=== PATIENT | male | born 1980 | race Caucasian/White ===

== ENCOUNTER → 2021-12-03 09:18 | Outpatient (BNVA) | payer BC, SELFPAY | PROVIDERS: PCP Family Medicine Adult Medicine; Visit Provider Family Medicine Adult Medicine | DX: Z00.00 Encounter for general adult medical examination without abnormal findings (principal) | CPT/HCPCS: 80053; 85025 ==

== ENCOUNTER → 2022-01-31 13:16 | Outpatient (BNVA) | payer BC, MEDICAID, SELFPAY | PROVIDERS: PCP Family Medicine Adult Medicine; Visit Provider Emergency Medicine | DX: S99.911A Unspecified injury of right ankle, initial encounter (principal); X58.XXXA Exposure to other specified factors, initial encounter | CPT/HCPCS: 73610 ==

== ENCOUNTER → 2022-10-13 09:56 | Outpatient (BNVA) | payer BC, MEDICAID, SELFPAY | PROVIDERS: PCP Family Medicine Adult Medicine; Visit Provider Family Medicine Adult Medicine | DX: F01-F99 Mental, behavioral and neurodevelopmental disorders (principal); M79.2 Neuralgia and neuritis, unspecified; N18.2 Chronic kidney disease, stage 2 (mild); F17.200 Nicotine dependence, unspecified, uncomplicated; K50.90 Crohn's disease, unspecified, without complications; F90.8 Attention-deficit hyperactivity disorder, other type | CPT/HCPCS: 80053; 80061; 84443; 85025 ==

== ENCOUNTER 2023-03-22 23:45 | Inpatient (IN) | payer BC, SELFPAY ==
[2023-03-22 23:46] VITALS: BP 156/118; PULSE 118; RESP 18; TEMP 36.7; O2SAT 98
--- NOTE | 2023-03-22 23:55 | ECG_ITS ---
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 Measurements Intervals [place] Rate: 101 P: 69 [place]: 135 QRS: 84 QRSD: 86 T: 64 QT: 328 QTc: 425 Interpretive Statements SINUS TACHYCARDIA ABNORMAL RHYTHM ECG No previous ECG available for comparison Electronically Signed On 03-23-2023 7:16:10 PLASTIC INSTALLER by Anel Jimenez M.D. [id number]
--- NOTE | 2023-03-23 00:10 | ECG_ITS ---
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 Measurements Intervals [place] Rate: 101 P: 69 [place]: 135 QRS: 84 QRSD: 86 T: 64 QT: 328 QTc: 425 Interpretive Statements SINUS TACHYCARDIA ABNORMAL RHYTHM ECG No previous ECG available for comparison Electronically Signed On 03-23-2023 7:16:12 WARM IN WORKER by Anel Jimenez M.D. [id number] f
--- NOTE | 2023-03-23 00:12 | ED.C_ITS ---
HPI - Psych 2 General: Chief Complaint: Psychiatric Symptoms Stated Complaint: 96 hr hold Time Seen by Provider: 03/23/23 00:10 History of Present Illness: 42-year-old male presents to the emergen cy department under 96-hour hold with [facility] [employer]. They have a statement from the patient's stating that she feels like he is having hallucinations and paranoid type behavior. She states he is hiding cameras all around the property as he thinks that she is cheating on him and smoking methamphetamine. The patient states that his is saying all of this because he told her he wanted a divorce and that she is using methamphetamine. He denies SI or HI. He states that he is convinced that his is cheating on him and appears to be gaslighting everyone and attempts to turn them against him. He states that he has asked his daughters about strange men that have been in their house and the older daughter has told the younger daughter not to say anything. He states that he did drink some alcohol this evening and attempt to ease his stress. He states that he is concerned that people specifically men are coming to his house when he is not there or sneaking onto his property to be with his . 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 Smoker unmotivated to quit ADHD, adult residual type Diverticulosis CKD (chronic kidney disease) stage 2, GFR 60-89 ml/min History of spinal fracture L2 level in 2001 Peripheral neuropathic pain ADD (attention deficit disorder) Crohn disease Surgical History History of arthroscopic knee surgery right knee Social History Smoking and tobacco/nicotine status: current every day tobacco/nicotine user (chewing tobacco) smokeless tobacco Smokeless tobacco user: snuff Alcohol intake: current Alcohol intake frequency: few times a month Substance/Drug Use: never Caregiver/support person: No Lives independently: Yes Household members: spouse Marital status: service: Yes Current occupational status: employed Do you think of yourself as: Straight/Heterosexual Current gender identity: Male Physical Exam 2 Narrative: EXAM NARRATIVE: Constitutional: the patient appears well nourished and with normal development. Vital signs reviewed as documented. HENMT: Normocephalic, atraumatic. Extermal ears with normal appearance without drainage. Nose without drainage, normal appearance. Mucus membranes moist. Neck is supple, No jugular venous distension, trachea is midline, no appreciable carotid bruits. No lymphadenopathy. No meningeal signs. Flexion, extension and lateral rotation is without pain. Eyes: Pupils are equal, round, reactive to light and accommodation. No scleral icterus. Extra-ocular movement are intact. Thorax is symmetrical and with equal rise and fall with respirations. Resp: Lungs are clear to auscultation. No wheezes, rales, crackles or ronchi at present. Cardio: Regular rate and rhythm. Positive S1, S2. No appreciable murmurs, rubs or gallops. GI: Abdominal exam reveals normal bowel sounds to all quadrants. No organomegaly. No obvious palpable masses noted. No hepatomegally appreciated. Soft, nontender to palpation. Extremity: Extremities are non-edematous and both femoral and pedal pulses are 2+ and equal bilaterally. Moves all extremities well, sensation in all extremities. Neuro: Alert and oriented x4, person, place, time and situation. Cranial nerves II through XII are grossly intact, there is no focal neurological deficits that I can appreciate at present. Motor strength in the upper and lower extremities are equal and bilateral 5/5. Psych: Cooperative, calm, normal thought process, appropriate judgment. Skin: No lesions, rashes. No gross abnormalities noted. Back: Symmetrical, no obvious deformity, No CVA tenderness Course 2 Vital Signs: Vital signs: Vital Signs Temperature 98.0 F 03/22/23 23:46 Pulse Rate 100 03/23/23 01:44 Respiratory Rate 20 H 03/23/23 01:44 Blood Pressure 126/94 03/23/23 01:44 Pulse Oximetry 98 03/23/23 01:44 Oxygen Delivery Me thod Room Air 03/23/23 01:44 MDM - Psych Medical Decision Making Physical exam completed and documented I have obtained laboratory evaluation for psychiatric clearance. Medical Records I reviewed the patient's medical records. Lab Data I reviewed the patient's lab results. 03/22/23 23:57 03/22/23 23:57 Laboratory Results WBC 13.20 10^3/uL (3.29-11.43) H 03/22/23 23:57 RBC 5.07 10^6/uL (3.85-5.65) 03/22/23 23:57 Hgb 16.60 g/dL (11.27-16.99) 03/22/23 23:57 Hct 48.3 % (37-53) 03/22/23 23:57 MCV 95.3 fl (82-101) 03/22/23 23:57 MCH 32.7 pg (27-33) 03/22/23 23:57 MCHC 34.4 g/dL (30-55) 03/22/23 23:57 RDW 14.2 % (12.1-15.1) 03/22/23 23:57 Plt Count 435 10^3/cmm (157-399) H 03/22/23 23:57 MPV 8.4 fL (7.4-10.4) 03/22/23 23:57 Neut % (Auto) 56.9 % 03/22/23 23:57 Lymph % (Auto) 32.9 % 03/22/23 23:57 [place] % (Auto) 7.7 % 03/22/23 23:57 Eos % (Auto) 1.9 % 03/22/23 23:57 Baso % (Auto) 0.4 % 03/22/23 23:57 Neut # (Auto) 7.52 10^3/uL (1.8-7.7) 03/22/23 23:57 Lymph # (Auto) 4.3 10^3/uL (0.8-4.8) 03/22/23 23:57 [place] # (Auto) 1.0 10^3/uL (0.2-0.9) H 03/22/23 23:57 Eos # (Auto) 0.3 10^3/uL (0.0-0.8) 03/22/23 23:57 Baso # (Auto) 0.1 10^3/uL (0.0-0.1) 03/22/23 23:57 Nucleated RBC % (auto) 0 % 03/22/23 23:57 Nucleated RBCs # 0.0 /100WBC 03/22/23 23:57 Sodium 139 mmol/L (136-145) 03/22/23 23:57 Potassium 3.5 mmol/L (3.5-5.1) 03/22/23 23:57 Chloride 102 mmol/L (98-107) 03/22/23 23:57 Carbon Dioxide 27 mmol/L (22-29) 03/22/23 23:57 Anion Gap 13.5 (5-19) 03/22/23 23:57 BUN 7 mg/dL (6-20) 03/22/23 23:57 Creatinine 1.3 mg/dL (0.7-1.2) H 03/22/23 23:57 GFR Calculation 60.5 mL/min (90-130) L 03/22/23 23:57 Glucose 86 mg/dL (65-115) 03/22/23 23:57 Calculated Osmolality 285 mOsm/kg (285-295) 03/22/23 23:57 Calcium 8.9 mg/dL (8.5-10.5) 03/22/23 23:57 Total Bilirubin 0.5 mg/dL (0.15-1.2) 03/22/23 23:57 AST 17 U/L (0-40) 03/22/23 23:57 ALT 16 U/L (0-41) 03/22/23 23:57 Alkaline Phosphatase 63 U/L (40-130) 03/22/23 23:57 Total Protein 7.2 g/dL (6.6-8.7) 03/22/23 23:57 Albumin 4.2 g/dL (3.5-5.2) 03/22/23 23:57 Globulin 3.0 g/dL (1.3-4.6) 03/22/23 23:57 TSH 1.13 uIU/mL (0.27-4.20) 03/22/23 23:57 Urine Color Light yellow (Yellow) 03/23/23 00:01 Urine Appearance Clear (CLEAR) 03/23/23 00:01 Urine pH 6 (5-7) 03/23/23 00:01 Ur Specific [place] 1.015 (1.005-1.030) 03/23/23 00:01 Urine Protein Neg (Negative) 03/23/23 00:01 Urine Glucose (UA) Norm (Normal) 03/23/23 00:01 Urine Ketones Negative (Negative) 03/23/23 00:01 Urine Blood Trace (Negative) H 03/23/23 00:01 Urine Nitrate Negative (Negative) 03/23/23 00:01 Urine Bilirubin Neg (Negative) 03/23/23 00:01 Urine Urobilinogen Neg mg/dL (Negative) 03/23/23 00:01 Ur Leukocyte Esterase Negative (Negative) 03/23/23 00:01 Urine RBC 0-4 /hpf (0-2) H 03/23/23 00:01 Urine WBC None /hpf (0-5) 03/23/23 00:01 Ur Squamous Epith Cells Rare /hpf (0-5) 03/23/23 00:01 Amorphous Sediment Not Reportable 03/23/23 00:01 Urine Bacteria None /hpf (NONE) 03/23/23 00:01 Salicylates < 0.3 mg/dL (3-10) L 03/22/23 23:57 Urine Opiates Screen Negative ng/mL (Negative) 03/23/23 00:01 Acetaminophen < 5.0 ug/mL (10-30) L 03/22/23 23:57 Ur Barbiturates Screen Negative ng/mL (Negative) 03/23/23 00:01 Ur Phencyclidine Scrn Negative ng/mL (Negative) 03/23/23 00:01 Ur Amphetamines Screen Positive ng/mL (Negative) H 03/23/23 00:01 U Benzodiazepines Scrn Negative ng/mL (Negative) 03/23/23 00:01 Urine Cocaine Screen Negative ng/mL (Negative) 03/23/23 00:01 U Marijuana (THC) Screen Negative ng/mL (Negative) 03/23/23 00:01 Ethyl Alcohol 113 mg/dL (0-10) H 03/22/23 23:57 No radiology studies performed this visit EKG Data EKG 1: Interpretation: Twelve-lead EKG obtained at 2355 and reviewed at 2355 demonstrates sinus tachycardia at a ventricular rate of 101 bpm. MI interval 135, QRS duration 86, QT 328, QTc 386, there is no ST elevation or depression to demonstrate acute ischemia or infarction at present Discharge Plan Discharge Patient Disposition: Admitted As Inpatient Admit Provider: Eliud Retana Clinical Impression: Paranoid Condition: Stable Coding Level of Care Code ED Port Engineer for Loretta Cody
[2023-03-23 00:14] LABS: Basophils # 0.1 10^3/uL (0.0-0.1); Basophils % 0.4 %; Eosinophils # 0.3 10^3/uL (0.0-0.8); Eosinophils % 1.9 %; Hematocrit 48.3 % (37-53); Lymphocytes # 4.3 10^3/uL (0.8-4.8); Lymphocytes % 32.9 %; Mean Corpuscular HGB Conc 34.4 g/dL (30-55); Mean Corpuscular Hemoglobin 32.7 pg (27-33); Mean Corpuscular Volume 95.3 fl (82-101); Mean Platelet Volume 8.4 fL (7.4-10.4); Monocytes % 7.7 %; Neutrophils # 7.52 10^3/uL (1.8-7.7); Neutrophils % 56.9 %; Nucleated Red Blood Cells % 0 %; Platelet Count 435 10^3/cmm (157-399); Red Blood Count 5.07 10^6/uL (3.85-5.65); Red Cell Distribution Width 14.2 % (12.1-15.1)
--- NOTE | 2023-03-23 00:18 | PC.NURSE ---
Suicide precautions in place: patient with PSA, has been dressed out of regular clothes into green scrubs, and belongings have been removed from stripped room. Belongings labeled and placed in designated drawer.
[2023-03-23 00:22] LABS: Add Urine Microscopic? YES; Bilirubin Urine Neg (Negative); Blood Urine Trace (Negative); Glucose Urine UA Norm (Normal); Ketones Urine Negative (Negative); Leukocyte Esterase Urine Negative (Negative); Nitrate Urine Negative (Negative); Protein Urine Neg (Negative); RBC Urine 0-4 /hpf (0-2); Specific Gravity, Urine 1.015 (1.005-1.030); Urine Appearance Clear (CLEAR); Urine Color Light yellow (Yellow); Urobilinogen Urine Neg (Negative); pH Urine 6 (5-7)
[2023-03-23 00:23] LABS: Add Urine Culture? No; Squamous Epithelial Cell Urine RARE /hpf (0-5)
[2023-03-23 00:29] LABS: Amphetamines Screen Urine Positive (Negative); Barbiturates Screen Urine Negative (Negative); Benzodiazepines Screen Urine Negative (Negative); Cocaine Screen Urine Negative (Negative); Opiate Screen Urine Negative (Negative); PCP Screen Urine Negative (Negative); THC Screen Urine Negative (Negative)
[2023-03-23 00:39] LABS: Alanine Aminotransferase 16 U/L (0-41); Albumin Level 4.2 g/dL (3.5-5.2); Alcohol Level 113 mg/dL (0-10); Alkaline Phosphatase 63 U/L (40-130); Anion Gap 13.5 (5-19); Aspartate Amino Transferase 17 U/L (0-40); Blood Urea Nitrogen 7 mg/dL (6-20); Calcium 8.9 mg/dL (8.5-10.5); Carbon Dioxide 27 mmol/L (22-29); Chloride 102 mmol/L (98-107); Glomerular Filtration Rate 60.5 mL/min (90-130); Glucose 86 mg/dL (65-115); Osmolality Calculated 285 mOsm/kg (285-295); Potassium 3.5 mmol/L (3.5-5.1); Sodium 139 mmol/L (136-145); Thyroid Stimulating Hormone 1.13 uIU/mL (0.27-4.20); Total Bilirubin 0.5 mg/dL (0.15-1.2); Total Protein 7.2 g/dL (6.6-8.7)
[2023-03-23 00:40] LABS: Acetaminophen < 5.0 ug/mL (10-30); Salicylate < 0.3 mg/dL (3-10)
--- NOTE | 2023-03-23 01:16 | PC.NURSE ---
96 Hour Involuntary Hold Patient Rights have been presented to patient and a copy of the same has been given to him. [employer] was present at bedside.
--- NOTE | 2023-03-23 01:41 | PC.NURSE ---
Report called to MESERET Solorio in NPU. All questions and concerns addressed at time of report.
[2023-03-23 01:44] VITALS: BP 126/94; PULSE 100; RESP 20; O2SAT 98
[2023-03-23 01:45] VITALS: BP 141/98; PULSE 103; RESP 20; TEMP 36.8; O2SAT 96
[2023-03-23] MEDS: trazodone 50 mg Tablet PO (02:45)
--- NOTE | 2023-03-23 02:56 | PC.NURSE ---
Attempted to have patient sign his admission paperwork, however was unable to obtain all signatures due to being unable to redirect patient. Patient continued to ramble on about his , job and cameras at his house. Patient also went to talk about still grieving the of his parents that were murdered in 2020.
--- NOTE | 2023-03-23 02:57 | PC.NURSE ---
Patient Behavior Patient was rambling with very disconnected thoughts, unable to do some of his admission.
--- NOTE | 2023-03-23 05:54 | W.PM.NPUH&PS ---
Providers/Chief Complaint Admitting Physician: Eliud Retana MD Primary Care Provider: Ron Hightower MD Chief Complaint: 96 hr hold HPI NPU History of Present Illness Andrade Garrett is a 42 year old male who presented to the emergency department with the following report: Chief Complaint: Psychiatric Symptoms Stated Complaint: 96 hr hold Time Seen by Provider: 03/23/23 00:10 History of Present Illness: 42-year-old male presents to the emergency department under 96-hour hold with [facility] Department. They have a statement from the patient's stating that she feels like he is having hallucinations and paranoid type behavior. She states he is hiding cameras all around the property as he thinks that she is cheating on him and smoking methamphetamine. The patient states that his is saying all of this because he told her he wanted a divorce and that she is using methamphetamine. He denies SI or HI. He states that he is convinced that his is cheating on him and appears to be gaslighting everyone and attempts to turn them against him. He states that he has asked his daughters about strange men that have been in their house and the older daughter has told the younger daughter not to say anything. He states that he did drink some alcohol this evening and attempt to ease his stress. He states that he is concerned that people specifically men are coming to his house when he is not there or sneaking onto his property to be with his . Associated symptoms: Deny homicidal ideation or suicidal ideation He was admitted to the neuropsychiatric unit for definitive treatment of those issues. He presents today unknown to the inpatient unit reporting that he has never been psychiatrically hospitalized nor has he had any longstanding mental health treatment. He started telling a very long-winded very convoluted story of his seeming suspicious to a level that he ended up putting cameras in the home and then reported that what he discovered was that she would masturbate and possibly watch pornography during which she said constituted a departure from their agreed-upon behaviors. He later identified that it was okay for her to masturbate but that he was not sure if she should watch for longer fever from a spiritual standpoint and went on a long story about how they should create their own pornography for themselves only. He reports that then he took the cameras down and was not able to watch her but then there were a couple of mornings where he went And was pretty sure there was a man in the house but could not explain why that would be a reasonable time to try to have someone in there given that they sleep in the bed together. He seemed open to the possibility that this was hallucinating but then would return back to that same subject and similar accusations about her and possible infidelity that was based on something he noted very well could not have been real. His speech was quite pressured and it was hard to interject questions as he went along. He reported being diagnosed with ADHD in denies taking his Adderall ER 40 mg in any way other than it is prescribed. He was a fairly poor historian and was very focused on these beliefs that seemed questionable even as he spoke to him. We discussed concerns that he was having helene especially with his reports of poor sleep and going several days without sleeping. We discussed the possibility of bipolar disorder. We discussed the risks, benefits and alternatives of a trial of Abilify and he understood and agreed to proceed as is documented in this note. 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 We agreed we could work with his significant other to be able to bring something here to allow him to possibly do the payroll but that given the current information we were agreeable that concerns for safety with his possibly manic presentation existed and we had no plans of overturning the 96-hour hold. Per his 03/22/2023 crisis documentation: ACI Contact Form Date Opened: 03/22/23 Time Opened: 10:08 Caller Information Person in Crisis Name:: Andrade Garrett Person in Crisis Phone:: Person in Crisis Address:: [address] [place] [id number] Caller Name if different from person in crisis: Beba Garrett Caller Relationship to Client:: Caller Phone:: C-SSRS Able to complete C-SSRS?: No (No client contact) Demographics Race/Ethnicity: White (non-) Gender: Male Sexual Orientation/Identity: Heterosexual Age: 35-44 Status: Pender/Active Intellectual Disability: Unknown Client Call Information Primary problem of call:: Acute Mental Health Crisis Is person in crisis currently taking any medications?: Unknown Does person in crisis currently use alcohol or drugs?: Unknown Does person in crisis have any known medical conditions?: Unknown Intervention: Referred for a Mobile Crisis Response Mobile Crisis Response Location:: Facility Facility: [facility] Office Intervention:: Assisted with Admission to Inpatient Psychiatric Care Was mobile crisis response initiated by [facility]?: No Final Disposition Supports Utilized:: Support/opportunity to ventilate, Options for treatment, Promote hope, Validation, Encouragement and Supportive listening Actions taken narrative:: 03/22/23 ACI met with Beba at the [facility] office. Beba reports that Andrade was in a manic state again this morning and was accusing her of having another man in the bed with them. Beba reports it has been very traumatic for the past 10 1/2 weeks since Andrade had a mental break. Beba reports that things are mostly the same as when she last had contact with I and reports that Andrade is not sleeping and will stay up for up to 4 days at a time then fall asleep for a few hour but often wakes up in full blown panic. Beba also reports that Andrade has not been eating though he does continue to drink alcohol. Beba was unsure if Andrade is using substance other than alcohol. Beba reports that Andrade has cameras all over the house to catch her cheating on him and is obsessed with the camera footage. Beba reports that Andrade now believes that she is hiding a man in the house, in varying places; roof, mattress, hedrick, in bed with them, etc. I assisted Beba with completed 96 hour hold paperwork for Andrade. ACI let Beba know that ACI would contact Beba once a decision had been made by the director loan. 1140 ACI faxed the hold paperwork to the [facility]. 1141 ACI contacted Kenyetta at the [facility] and let her know the fax at been sent and requested a callback once a decision has been made. 1300 ACI contacted Kenyetta to learn the disposition. Kenyetta stated it had been approved. 1303 ACI made contact with Beba and let her know that the hold had been approved. 03/10/23 901 I received a called from Andrade's Beba. Beba reports that for the past 8 weeks Andrade has been manic and depressive. Beba also reports that Lucina is seeing and hearing things that are not real and has been accusing her of many things. Beba reports that Anrdade lost his father 2 years ago when a drunk peg driver hit him and that it has been hard on the entire family. Beba reports that Andrade had quit drinking but recently has started again and has been hiding it from her until he just revealed bottles he has tried to hide away. [facility] explained that is Andrade was willing to go to the hospital he could be evaluated to determine if he is in need of inpatient treatment but if he is unwilling then 96 hour hold paperwork would need to be completed to get him to the hospital and evaluated. Beba stated is going to talk to her flare stitcher and may come to [facility] afterwards to complete the paperwork. [facility] encouraged Beba to contact [facility] as needed. Client Response to Intervention:: thank you Final Disposition:: 96 hour hold paperwork was completed and approved Meds NPU Home Medications Medication Instructions Recorded Confirmed Last Taken Type dextroamphetamine-amphetamine ER 30 mg PO QAM ADD 30 days #30 caps 02/22/23 03/23/23 Unknown Rx 30 mg 24hr capsule,extend release dextroamphetamine-amphetamine ER 10 mg PO QAM ADD/ADHD 03/23/23 03/23/23 Unknown History 10 mg 24hr capsule,extend release (Adderall XR) gabapentin 300 mg capsule 300 mg PO 3XD 03/23/23 03/23/23 Unknown History (Neurontin) Allergies Allergy/AdvReac Type Severity Reaction Status Date / Time ciprofloxacin [From Cipro] Allergy Severe ALGY-Swell Verified 03/23/23 00:14 Lip/Tongue/Throat PFSH NPU PFSH: Medical History (Updated 03/24/23 @ 07:02 by Eliud Retana MD) Atypical mole 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 Smoker unmotivated to quit ADHD, adult residual type Diverticulosis CKD (chronic kidney disease) stage 2, GFR 60-89 ml/min History of spinal fracture L2 level in 2000 Peripheral neuropathic pain ADD (attention deficit disorder) Crohn disease Surgical History History of arthroscopic knee surgery right knee Social History Smoking and tobacco/nicotine status: current every day tobacco/nicotine user smokeless tobacco Smokeless tobacco user: snuff Alcohol intake: current Alcohol intake frequency: few times a month Substance/Drug Use: never Caregiver/support person: No Lives independently: Yes Household members: spouse Marital status: service: Yes Current occupational status: employed Do you think of yourself as: Straight/Heterosexual Current gender identity: Male Mental Status Exam MSE Comments: This is a well-nourished, well-developed white male in hospital scrubs with adequate grooming and eye contact. Very prominent long spencer. No abnormal movements except for psychomotor agitation. Mostly cooperative with exam in mild to moderate distress. Speech was increased rate and volume and pressured. Mood described as misunderstood, affect hyper/manic. Thought process stream of consciousness. Thought content: Patient denied suicidal or homicidal ideations, there were no delusions reported but significant paranoid and persecutory delusions noted, he denied auditory or visual hallucinations but clearly something that he described were likely auditory and visual hallucinations. Attention and concentration were limited memory appeared unreliable but none were formally tested. He is alert and oriented x to person and place. Insight, judgment and impulse control are impaired. Vitals/I&O/Wt Last Vital Signs Temp 98.2 F 03/23/23 01:45 Pulse 103 H 03/23/23 01:45 Resp 20 H 03/23/23 01:45 BP 141/98 03/23/23 01:45 Pulse Ox 96 03/23/23 01:45 O2 Del Method Room Air 03/23/23 01:50 Weight last 48 hrs Weight 81.647 kg Data NPU 03/22/23 23:57 03/22/23 23:57 A&P Assessment and plan (1) Paranoid: (2) Smoker unmotivated to quit: (3) ADHD, adult residual type: (4) Helene: (5) Psychosis: Plan This is a 42-year-old white male with a reported history of ADHD on stimulant treatment with apparent helene and psychosis with 2 recent calls to the crisis that led to him being placed on a 96-hour hold secondary to his delusional thinking who presents open to a trial of medication. 1.? Continue current medication. Hold Adderall for now with concerns for its exacerbating psychosis. Start Abilify 10 mg p.o. daily for helene/psychosis. 2.? Encourage individual, group, and milieu therapy. 3.? Continue q-15-minute checks for safety. 4.? Recommend sober living treatment at the highest level of care to which the patient is willing to commit. Attestations NPU Medical Necessity Statement*: Inpatient hospitalization is medically necessary and the clinically appropriate intervention, at this time. We will monitor medications and make changes as indicated. Patient will be in the hospital for over two midnights. Likely length of stay is three to five days. Coding Level of Care Code Acute Code for Chg Fwd Diagnoses Paranoid F22 Smoker unmotivated to quit F17.200 ADHD, adult residual type F90.8 Helene F30.9 Psychosis F29
[2023-03-23 06:00] VITALS: RESP 18
[2023-03-23] MEDS: nicotine 21 mg Patch 1 PATCH TRANSDERMA (09:12)
[2023-03-23] MEDS: folic acid 1 mg Tablet PO (09:13)
[2023-03-23] MEDS: multivitamin therapeutic Tablet 1 TAB PO (09:13)
[2023-03-23] MEDS: baclofen 10 mg Tablet 20 MG PO ×3 (09:13→16:11)
[2023-03-23] MEDS: thiamine 100 mg Tablet PO (09:13)
[2023-03-23] MEDS: gabapentin 300 mg Capsule PO ×2 (11:01→14:02)
[2023-03-23 14:00] VITALS: BP 140/84; PULSE 107; RESP 17; TEMP 36.6; O2SAT 98
[2023-03-23] MEDS: ARIPiprazole 10 mg Tablet PO (16:11)
--- NOTE | 2023-03-23 16:13 | PC.NURSE ---
joanne patch removed at 1613 per patient request. Patient is interested in trying lozenges.
[2023-03-23 20:31] VITALS: BP 147/89; PULSE 106; RESP 16; O2SAT 96
[2023-03-24 06:00] VITALS: RESP 18
--- NOTE | 2023-03-24 06:46 | PC.NURSE ---
Unable to obtain patients vitals due to patient sleeping. RR obtained.
--- NOTE | 2023-03-24 08:33 | P.NPUPN_ITS ---
Subjective NPU 2 Subjective: Patient presented today reporting that he is doing okay. 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 He denied any side effects of the medication and we discussed that the Jordan being here tomorrow to manage issues of discharge and his hold. Mental Status Exam 2 MSE Comments: This is a well-nourished, well-developed white male in hospital scrubs with adequate grooming and eye contact. Very prominent long spencer. No abnormal movements except for psychomotor agitation. Mostly cooperative with exam in mild to moderate distress. Speech was increased rate and volume and pressured. Mood described as misunderstood, affect hyper/manic. Thought process stream of consciousness. Thought content: Patient denied suicidal or homicidal ideations, there were no delusions reported but significant paranoid and persecutory delusions noted, he denied auditory or visual hallucinations but clearly something that he described were likely auditory and visual hallucinations. Attention and concentration were limited memory appeared unreliable but none were formally tested. He is alert and oriented x to person and place. Insight, judgment and impulse control are impaired. Vitals/I&O/Wt Last Vital Signs Temp 97.8 F 03/23/23 14:00 Pulse 106 H 03/23/23 20:31 Resp 18 03/24/23 06:00 BP 147/89 03/23/23 20:31 Pulse Ox 96 03/23/23 20:31 O2 Del Method Room Air 03/23/23 20:31 Weight last 48 hrs Weight 81.647 kg Data NPU 03/22/23 23:57 03/22/23 23:57 A&P Assessment and plan (1) Paranoid: (2) Smoker unmotivated to quit: (3) ADHD, adult residual type: (4) Marva: (5) Psychosis: Plan This is a 42-year-old white male with a reported history of ADHD on stimulant treatment with apparent marva and psychosis with 2 recent calls to the crisis that led to him being placed on a 96-hour hold secondary to his delusional thinking who presents open to a trial of medication. 1.? Continue current medication. Hold Adderall for now with concerns for its exacerbating psychosis. Continue Abilify 10 mg p.o. daily to target marva and psychosis. 2.? Encourage individual, group, and milieu therapy. 3.? Continue q-15-minute checks for safety. 4.? Recommend sober living treatment at the highest level of care to which the patient is willing to commit. Involuntary Hold Information 2 96 Hour Hold: 96 Hour Involuntary Admission: Yes 96 Hour Hold Ending Date: 03/28/23 96 Hour Hold Ending Time: 11:45 Attestations NPU 2 Medical Necessity Statement*: Inpatient hospitalization is medically necessary and the clinically appropriate intervention, at this time. We will monitor medications and make changes as indicated. The patient's likely length of stay is three to five days. Coding Level of Care Code Acute Code for Chg Fwd Diagnoses Paranoid F22 Smoker unmotivated to quit F17.200 ADHD, adult residual type F90.8 Marva F30.9 Psychosis F29
[2023-03-24] MEDS: ARIPiprazole 10 mg Tablet PO (09:19)
[2023-03-24] MEDS: folic acid 1 mg Tablet PO (09:19)
[2023-03-24] MEDS: multivitamin therapeutic Tablet 1 TAB PO (09:19)
[2023-03-24] MEDS: gabapentin 300 mg Capsule PO ×2 (09:20→16:14)
[2023-03-24] MEDS: thiamine 100 mg Tablet PO (09:20)
[2023-03-24] MEDS: baclofen 10 mg Tablet 20 MG PO ×3 (09:20→16:08)
[2023-03-24 14:00] VITALS: BP 137/94; PULSE 95; RESP 13; O2SAT 98
[2023-03-24] MEDS: nicotine 4 mg lozenge MUCOUS MEM (16:08)
[2023-03-24 20:36] VITALS: BP 144/86; PULSE 98; RESP 18; TEMP 36.6; O2SAT 98
--- NOTE | 2023-03-24 20:58 | PC.NURSE ---
IN BED RESTING AROUSES TO VOICE. PT STATES HE SPOKE TO HIS AND IS HAVING INCREASED ANXIETY RATING IT 7/10 AND DEPRESSION 2/10. THIS RN PULLED VISTARIL 50 MG REQUESTED BUT PT HAS NOT GOTTEN UP TO TAKE IT AFTER NOTIFYING PT SEVERAL TIMES HIS MEDICATIONS WERE READY. WILL ATTEMPT AGAIN BY 2200. PT DENIES PAIN, DENIES SI/HI AND AVH AT THIS TIME. PT CONTINUES TO WITHDRAW AND ISOLATES TO ROOM. FLAT AFFECT IS NOTED. ALL QUESTIONS ANSWERED AND SUPPORT WAS VOICED.
[2023-03-25 06:00] VITALS: RESP 16
[2023-03-25] MEDS: multivitamin therapeutic Tablet 1 TAB PO (09:10)
[2023-03-25] MEDS: folic acid 1 mg Tablet PO (09:10)
[2023-03-25] MEDS: thiamine 100 mg Tablet PO (09:10)
[2023-03-25] MEDS: ARIPiprazole 10 mg Tablet PO (09:10)
[2023-03-25] MEDS: gabapentin 300 mg Capsule PO ×3 (09:11→19:47)
--- NOTE | 2023-03-25 09:17 | PC.NURSE ---
PATIENT REFUSED 0900 BACLOFEN, STATING THAT HE DOESN'T FEEL LIKE HE NEEDS IT AT THIS TIME.
[2023-03-25] MEDS: nicotine 21 mg Patch 1 PATCH TRANSDERMA (10:31)
[2023-03-25] MEDS: baclofen 10 mg Tablet 20 MG PO ×3 (13:09→19:47)
[2023-03-25 13:13] VITALS: BP 145/96; PULSE 121; RESP 16; TEMP 36.7; O2SAT 96
--- NOTE | 2023-03-25 18:06 | P.NPUPN_ITS ---
Subjective NPU 2 Subjective: 42-year-old male who admitted with paranoia and psychosis along with increased marva and anxiety. The patient had reported having taken Adderall over the last year. He had also reported that with the increase in Adderall he had had increased problems with anxiety and paranoia. He stated having improved sleep since the Adderall was discontinued. Patient provided information that he had renal failure secondary to chronic kidney disease. He was informed of the potential for Adderall to be metabolized and eliminated slower with the presence of chronic kidney disease and thereby put the patient at risk with increased presence of amphetamine in his system which could lead to psychosis. He reported no side effects from the Abilify at this time. He had reported that his mind was moving slower. 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 He had continued to report that he felt that his clientele were playing tricks on him and continue to report feeling suspicious of their intentions Mental Status Exam 2 MSE Comments: . This is a well-nourished, well-developed white male in hospital scrubs with adequate grooming and eye contact. Very prominent long spencer. No abnormal movements except for psychomotor agitation. He was cooperative with exam in mild to moderate distress. Speech was increased in rate and volume and pressured. Mood described as allright. His affect was ebullient. Thought process remained circumstantial and overly elaborative. Thought content: Patient denied suicidal or homicidal ideation, There was paranoid delusions evident. he denied auditory or visual hallucinations and did not appear to be responding to internal stimuli. Attention and concentration were limited memory appeared unreliable but none were formally tested. He is alert and oriented x to person and place. Insight, judgment and impulse control are impaired. Vitals/I&O/Wt Last Vital Signs Temp 98.1 F 03/25/23 13:13 Pulse 121 H 03/25/23 13:13 Resp 16 03/25/23 13:13 BP 145/96 03/25/23 13:13 Pulse Ox 96 03/25/23 13:13 O2 Del Method Room Air 03/25/23 13:13 Data NPU 03/22/23 23:57 03/22/23 23:57 A&P Assessment and plan (1) Paranoid: (2) Smoker unmotivated to quit: (3) ADHD, adult residual type: (4) Marva: (5) Psychosis: Plan This is a 42-year-old white male with a reported history of ADHD on stimulant treatment with apparent marva and psychosis with 2 recent calls to the crisis that led to him being placed on a 96-hour hold secondary to his delusional thinking who presents open to a trial of medication. 1.? Continue current medication. Hold Adderall for now with concerns for its exacerbating psychosis. Continue Abilify 10 mg p.o. daily to target marva and psychosis. 2.? Encourage individual, group, and milieu therapy. 3.? Continue q-15-minute checks for safety. 4.? Recommend sober living treatment at the highest level of care to which the patient is willing to commit. Involuntary Hold Information 2 96 Hour Hold: 96 Hour Involuntary Admission: Yes 96 Hour Hold Ending Date: 03/28/23 96 Hour Hold Ending Time: 11:45 Attestations NPU 2 Medical Necessity Statement*: Inpatient hospitalization is medically necessary and the clinically appropriate intervention, at this time. We will monitor medications and make changes as indicated. The patient's likely length of stay is three to five days. Coding Level of Care Code Acute Code for g Fwd Diagnoses Paranoid F22 Smoker unmotivated to quit F17.200 ADHD, adult residual type F90.8 Marva F30.9 Psychosis F29
[2023-03-25] MEDS: trazodone 50 mg Tablet PO (19:46)
[2023-03-25] MEDS: hyDROXYzine 25 mg Capsule 50 MG PO (19:47)
[2023-03-25 20:27] VITALS: BP 134/92; PULSE 109; RESP 18; TEMP 36.9; O2SAT 98
--- NOTE | 2023-03-25 20:36 | PC.NURSE ---
IN BED AROUSES TO VOICE. PT REQUEST SOMETHING FOR ANXIETY, ITS REALLY BAD, I FEEL CONFINED IN THIS PLACE. PT WAS GIVEN BEDTIME MEDICATIONS WITH VISTARIL 50 MG FOR ANXIETY, AND TRAZODONE 50 MG FOR INSOMNIA. PT DENIES PAIN, SI/HI AND AVH AT THIS TIME. PT RATES ANXIETY 7/10 AND DEPRESSION 0/10. PT OBSERVED HAVING FLAT AFFECT, WITHDRAWS AND ISOLATES TO ROOM. PT ENCOURAGED TO INTERACT WITH PEERS AND STAFF BUT DECLINES, STATES I TALK TO MY AT NIGHT THEN GO TO BED. ALL QUESTIONS ANSWERED AND SUPPORT VOICED.
[2023-03-26 06:00] VITALS: BP 135/85; PULSE 91; RESP 17; TEMP 36.5; O2SAT 98
[2023-03-26] MEDS: ARIPiprazole 10 mg Tablet PO (08:49)
[2023-03-26] MEDS: multivitamin therapeutic Tablet 1 TAB PO (08:49)
[2023-03-26] MEDS: gabapentin 300 mg Capsule PO ×3 (08:49→20:12)
[2023-03-26] MEDS: thiamine 100 mg Tablet PO (08:49)
[2023-03-26] MEDS: baclofen 10 mg Tablet 20 MG PO ×4 (08:49→20:12)
[2023-03-26] MEDS: folic acid 1 mg Tablet PO (08:50)
[2023-03-26 14:00] VITALS: BP 137/87; PULSE 122; RESP 16; TEMP 36.6; O2SAT 96
--- NOTE | 2023-03-26 14:19 | P.NPUPN_ITS ---
Subjective NPU 2 Subjective: 42-year-old male who admitted with paranoia and psychosis along with increased marva and anxiety. The patient reported no racing thoughts. He reported no sleep continuity disruption. He reported still some vague references regarding his clientele potentially having attempted to dupe him and his company. He had been reporting feeling excessively fatigued but reported improved sleep since stopping his adderall upon arrival in the unit. He reports chronic use of caffeine in the past as well. He had reported history of hypertension and CKD. Patient reports no side effects from his abilify at this time. Mental Status Exam 2 MSE Comments: . This is a well-nourished, well-developed white male in hospital scrubs with adequate grooming and eye contact. Very prominent long spencer. No abnormal movements except for mild psychomotor slowing. He was cooperative with exam in mild distress. Speech was increased in rate and volume and pressured. Mood described as okay. His affect was restricted today. Thought process was more linear and logical. Thought content: Patient denied suicidal or homicidal ideation, There was mild paranoia noted. He denied auditory or visual hallucinations and did not appear to be responding to internal stimuli. Attention and concentration were limited memory appeared unreliable but none were formally tested. He is alert and oriented x to person and place. Insight was improving. His judgment was poor and impulse control appears to be improving. Vitals/I&O/Wt Last Vital Signs Temp 98 F 03/26/23 14:00 Pulse 122 H 03/26/23 14:00 Resp 16 03/26/23 14:00 BP 137/87 03/26/23 14:00 Pulse Ox 96 03/26/23 14:00 O2 Del Method Room Air 03/26/23 14:00 Weight last 48 hrs Weight 80.739 kg Data NPU 03/22/23 23:57 03/22/23 23:57 A&P Assessment and plan (1) Paranoid: (2) Smoker unmotivated to quit: (3) ADHD, adult residual type: (4) Marva: (5) Psychosis: Plan This is a 42-year-old white male with a reported history of ADHD on stimulant treatment with apparent marva and psychosis with 2 recent calls to the crisis that led to him being placed on a 96-hour hold secondary to his delusional thinking who presents open to a trial of medication. 1.? Continue current medication. Hold Adderall for now with concerns for its exacerbating psychosis. Continue Abilify 10 mg p.o. daily to target marva and psychosis. 2.? Encourage individual, group, and milieu therapy. 3.? Continue q-15-minute checks for safety. 4.? Recommend sober living treatment at the highest level of care to which the patient is willing to commit. Involuntary Hold Information 2 96 Hour Hold: 96 Hour Involuntary Admission: Yes 96 Hour Hold Ending Date: 03/28/23 96 Hour Hold Ending Time: 11:45 Attestations NPU 2 Medical Necessity Statement*: Inpatient hospitalization is medically necessary and the clinically appropriate intervention, at this time. We will monitor medications and make changes as indicated. The patient's likely length of stay is three to five days. Coding Level of Care Code Acute Code for Chg Fwd Diagnoses Paranoid F22 Smoker unmotivated to quit F17.200 ADHD, adult residual type F90.8 Marva F30.9 Psychosis F29
[2023-03-26] MEDS: nicotine 4 mg lozenge MUCOUS MEM (19:38)
[2023-03-26] MEDS: LORazepam 2 mg Tablet PO (19:38)
[2023-03-26 19:47] VITALS: BP 123/90; PULSE 104; RESP 16; TEMP 37.2; O2SAT 95
[2023-03-27 06:00] VITALS: BP 130/86; PULSE 81; RESP 16; TEMP 36.7; O2SAT 96
[2023-03-27] MEDS: multivitamin therapeutic Tablet 1 TAB PO (08:37)
[2023-03-27] MEDS: folic acid 1 mg Tablet PO (08:37)
[2023-03-27] MEDS: ARIPiprazole 10 mg Tablet PO (08:37)
[2023-03-27] MEDS: baclofen 10 mg Tablet 20 MG PO ×4 (08:37→20:06)
[2023-03-27] MEDS: gabapentin 300 mg Capsule PO ×3 (08:37→20:06)
[2023-03-27] MEDS: thiamine 100 mg Tablet PO (08:37)
[2023-03-27 14:00] VITALS: BP 133/95; PULSE 101; RESP 20; TEMP 36.6; O2SAT 96
[2023-03-27] MEDS: nicotine 4 mg lozenge MUCOUS MEM (16:38)
--- NOTE | 2023-03-27 17:44 | P.NPUPN_ITS ---
Subjective NPU 2 Subjective: 42-year-old male who admitted with paranoia and psychosis along with increased marva and anxiety. It appears likely that the hallucinations and paranoia were 2 to high blood levels of amphetamines in his system secondary to the use of Adderall XR at 40 mg a day in the context of having chronic kidney disease which had reduced clearance of his Adderall. Patient without the Adderall and reported feeling tired but stated that he was feeling more optimistic about going home. He reported feeling less suspicious. He stated having a good visit with his today. He had continued to isolate himself on the milieu. He had reported improved sleep. He denied any mood symptoms. 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 Mental Status Exam 2 MSE Comments: . This is a well-nourished, well-developed white male in hospital scrubs with adequate grooming and eye contact. Very prominent long spencer. No abnormal movements except for mild psychomotor slowing. He was cooperative with exam in no acute distress. Speech was increased in rate and volume and pressured. Mood described as okay. His affect remained somewhat flat today. Thought process was more linear and logical. Thought content: Patient denied suicidal or homicidal ideation, There was mild paranoia noted. He denied auditory or visual hallucinations and did not appear to be responding to internal stimuli. Attention and concentration were limited memory appeared unreliable but none were formally tested. He is alert and oriented x to person and place and time. Insight was improving. His judgment was poor and impulse control appears to be improving. Vitals/I&O/Wt Last Vital Signs Temp 97.9 F 03/27/23 14:00 Pulse 101 H 03/27/23 14:00 Resp 20 H 03/27/23 14:00 BP 133/95 03/27/23 14:00 Pulse Ox 96 03/27/23 14:00 O2 Del Method Room Air 03/27/23 14:00 Weight last 48 hrs Weight 80.739 kg Data NPU 03/22/23 23:57 03/22/23 23:57 A&P Assessment and plan (1) Paranoid: (2) Smoker unmotivated to quit: (3) ADHD, adult residual type: (4) Marva: (5) Psychosis: Plan This is a 42-year-old white male with a reported history of ADHD on stimulant treatment with apparent marva and psychosis with 2 recent calls to the crisis that led to him being placed on a 96-hour hold secondary to his delusional thinking who presents open to a trial of medication. 1.? Continue current medication. Hold Adderall for now with concerns for its exacerbating psychosis. Continue Abilify 10 mg p.o. daily to target marva and psychosis. 2.? Encourage individual, group, and milieu therapy. 3.? Continue q-15-minute checks for safety. 4.? Recommend sober living treatment at the highest level of care to which the patient is willing to commit. Involuntary Hold Information 2 96 Hour Hold: 96 Hour Involuntary Admission: Yes 96 Hour Hold Ending Date: 03/28/23 96 Hour Hold Ending Time: 11:45 Attestations NPU 2 Medical Necessity Statement*: Inpatient hospitalization is medically necessary and the clinically appropriate intervention, at this time. We will monitor medications and make changes as indicated. The patient's likely length of stay is 1-2 days. Coding Level of Care Code Acute Code for Chg Fwd Diagnoses Paranoid F22 Smoker unmotivated to quit F17.200 ADHD, adult residual type F90.8 Marva F30.9 Psychosis F29
[2023-03-27] MEDS: hyDROXYzine 25 mg Capsule 50 MG PO (18:09)
[2023-03-27 19:49] VITALS: BP 152/99; PULSE 120; RESP 18; TEMP 36.8; O2SAT 97
[2023-03-27] MEDS: trazodone 50 mg Tablet PO (20:06)
[2023-03-28] MEDS: hyDROXYzine 25 mg Capsule 50 MG PO ×2 (03:07→12:47)
[2023-03-28 06:00] VITALS: BP 123/80; PULSE 103; RESP 16; TEMP 36.7; O2SAT 97
[2023-03-28] MEDS: folic acid 1 mg Tablet PO (08:02)
[2023-03-28] MEDS: baclofen 10 mg Tablet 20 MG PO ×2 (08:02→12:49)
[2023-03-28] MEDS: ARIPiprazole 10 mg Tablet PO (08:02)
[2023-03-28] MEDS: multivitamin therapeutic Tablet 1 TAB PO (08:03)
[2023-03-28] MEDS: gabapentin 300 mg Capsule PO (08:03)
[2023-03-28] MEDS: thiamine 100 mg Tablet PO (08:03)
[2023-03-28] MEDS: nicotine 2 mg Gum BUCCAL (12:49)
--- NOTE | 2023-03-28 13:22 | W.PM.NPUDCS ---
Diagnoses at Discharge Discharge Diagnosis (1) Paranoid: Status: Acute (2) Smoker unmotivated to quit: Status: Acute (3) ADHD, adult residual type: Status: Acute (4) Helene: Status: Acute (5) Psychosis: Status: Acute Reason for Visit Reason for Visit: 96 hr hold Brief History: History of Present Illness Andrade Garrett is a 42 year old male who presented to the emergency department with the following report: Chief Complaint: Psychiatric Symptoms Stated Complaint: 96 hr hold Time Seen by Provider: 03/23/23 00:10 History of Present Illness: 42-year-old male presents to the emergency department under 96-hour hold with [facility]. They have a statement from the patient's stating that she feels like he is having hallucinations and paranoid type behavior. She states he is hiding cameras all around the property as he thinks that she is cheating on him and smoking methamphetamine. The patient states that his is saying all of this because he told her he wanted a divorce and that she is using methamphetamine. He denies SI or HI. He states that he is convinced that his is cheating on him and appears to be gaslighting everyone and attempts to turn them against him. He states that he has asked his daughters about strange men that have been in their house and the older daughter has told the younger daughter not to say anything. He states that he did drink some alcohol this evening and attempt to ease his stress. He states that he is concerned that people specifically men are coming to his house when he is not there or sneaking onto his property to be with his . Associated symptoms: Deny homicidal ideation or suicidal ideation He was admitted to the neuropsychiatric unit for definitive treatment of those issues. He presents today unknown to the inpatient unit reporting that he has never been psychiatrically hospitalized nor has he had any longstanding mental health treatment. He started telling a very long-winded very convoluted story of his seeming suspicious to a level that he ended up putting cameras in the home and then reported that what he discovered was that she would masturbate and possibly watch pornography during which she said constituted a departure from their agreed-upon behaviors. He later identified that it was okay for her to masturbate but that he was not sure if she should watch for longer fever from a spiritual standpoint and went on a long story about how they should create their own pornography for themselves only. He reports that then he took the cameras down and was not able to watch her but then there were a couple of mornings where he went And was pretty sure there was a man in the house but could not explain why that would be a reasonable time to try to have someone in there given that they sleep in the bed together. He seemed open to the possibility that this was hallucinating but then would return back to that same subject and similar accusations about her and possible infidelity that was based on something he noted very well could not have been real. His speech was quite pressured and it was hard to interject questions as he went along. He reported being diagnosed with ADHD in denies taking his Adderall ER 40 mg in any way other than it is prescribed. He was a fairly poor historian and was very focused on these beliefs that seemed questionable even as he spoke to him. We discussed concerns that he was having helene especially with his reports of poor sleep and going several days without sleeping. We discussed the possibility of bipolar disorder. We discussed the risks, benefits and alternatives of a trial of Abilify and he understood and agreed to proceed as is documented in this note. 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 We agreed we could work with his significant other to be able to bring something here to allow him to possibly do the payroll but that given the current information we were agreeable that concerns for safety with his possibly manic presentation existed and we had no plans of overturning the 96-hour hold. Per his 03/22/2023 crisis documentation: [facility] Contact Form Date Opened: 03/22/23 Time Opened: 10:08 Caller Information Person in Crisis Name:: Andrade Garrett Person in Crisis Phone:: Person in Crisis Address:: [address] [place] [address] [address] [id number] Caller Name if different from person in crisis: Beba Gerry Caller Relationship to Client:: Caller Phone:: C-SSRS Able to complete C-SSRS?: No (No client contact) Demographics Race/Ethnicity: White (non-) Gender: Male Sexual Orientation/Identity: Heterosexual Age: 35-44 Status: /Active Intellectual Disability: Unknown Client Call Information Primary problem of call:: Acute Mental Health Crisis Is person in crisis currently taking any medications?: Unknown Does person in crisis currently use alcohol or drugs?: Unknown Does person in crisis have any known medical conditions?: Unknown Intervention: Referred for a Mobile Crisis Response Mobile Crisis Response Location:: Facility Facility: [facility] Office Intervention:: Assisted with Admission to Inpatient Psychiatric Care Was mobile crisis response initiated by [facility]?: No Final Disposition Supports Utilized:: Support/opportunity to ventilate, Options for treatment, Promote hope, Validation, Encouragement and Supportive listening Actions taken narrative:: 03/22/23 I met with Beba at the [facility] office. Beba reports that Andrade was in a manic state again this morning and was accusing her of having another man in the bed with them. Beba reports it has been very traumatic for the past 10 1/2 weeks since Andrade had a mental break. Beba reports that things are mostly the same as when she last had contact with [facility] and reports that Andrade is not sleeping and will stay up for up to 4 days at a time then fall asleep for a few hour but often wakes up in full blown panic. Beba also reports that Andrade has not been eating though he does continue to drink alcohol. Beba was unsure if Andrade is using substance other than alcohol. Beba reports that Andrade has cameras all over the house to catch her cheating on him and is obsessed with the camera footage. Beba reports that Andrade now believes that she is hiding a man in the house, in varying places; roof, mattress, hedrick, in bed with them, etc. [facility] assisted Beba with completed 96 hour hold paperwork for Andrade. [facility]CI let Beba know that [facility]CI would contact Beba once a decision had been made by the replacer. 1140 [facility] faxed the hold paperwork to the [facility]. 1141 [facility] contacted Kenyetta at the [facility] and let her know the fax at been sent and requested a callback once a decision has been made. 1300 [facility] contacted Kenyetta to learn the disposition. Kenyetta stated it had been approved. 1303 [facility] made contact with Beba and let her know that the hold had been approved. 03/10/23 901 [facility] received a called from Andrade's Beba. Beba reports that for the past 8 weeks Andrade has been manic and depressive. Beba also reports that Lucina is seeing and hearing things that are not real and has been accusing her of many things. Beba reports that Andrade lost his father 2 years ago when a drunk independent driver hit him and that it has been hard on the entire family. Beba reports that Andrade had quit drinking but recently has started again and has been hiding it from her until he just revealed bottles he has tried to hide away. [facility] explained that is Andrade was willing to go to the hospital he could be evaluated to determine if he is in need of inpatient treatment but if he is unwilling then 96 hour hold paperwork would need to be completed to get him to the hospital and evaluated. Beba stated is going to talk to her certified real estate appraiser and may come to [facility] afterwards to complete the paperwork. [facility] encouraged Beba to contact [facility] as needed. Client Response to Intervention:: thank you Final Disposition:: 96 hour hold paperwork was completed and approved Hospital Course Hospital Course During the hospitalization, the patient had routine laboratory studies which were within normal limits except for a few outliers.? Additionally, there was a general medical evaluation which was also within normal limits and revealed no new acute processes.? At the time of discharge, lethality was denied and psychosis was resolving.? Mood and anxiety were well managed.? The patient endorsed a plan to avoid all drugs of abuse and follow up with the aftercare recommendations of the treatment team.? The patient was evaluated and deemed to be absent credible lethality and had achieved the maximum benefit from an inpatient hospitalization, and so was discharged.? The patient was started on Abilify with noted improvement in regards to paranoia. It was felt that the patient's Adderall dose combined with the patient's problem with Chronic Kidney Disease had delayed metabolism and increased blood levels of amphetamine well beyond therapeutic range and resulted in several of patient's psychiatric symptoms including increased anxiety, paranoia, hallucinations, insomnia that all appeared to dissipate after discontinuation of adderall here in the hospital. Involuntary Hold Information 96 Hour Hold: 96 Hour Involuntary Admission: Yes 96 Hour Hold Ending Date: 03/28/23 96 Hour Hold Ending Time: 11:45 Mental Status Exam MSE Comments: . This is a well-nourished, well-developed white male in hospital scrubs with adequate grooming and eye contact. Very prominent long spencer. No abnormal movements except for mild psychomotor slowing. He was cooperative with exam in no acute distress. Speech was normal in rate and volume. Mood described as good. His affect was brighter. Thought process was more linear and logical. Thought content: Patient denied suicidal or homicidal ideation, There was no paranoia noted. He denied auditory or visual hallucinations and did not appear to be responding to internal stimuli. Attention and concentration were fair on discharge. He is alert and oriented x to person and place and time. Insight was improving. His judgment was fair and impulse control appears to be improving. Discharge Data Studies Completed and Pending: Laboratory Results WBC 13.20 10^3/uL (3. 29-11.43) H 03/22/23 23:57 RBC 5.07 10^6/uL (3.8 5-5.65) 03/22/23 23:57 Hgb 16.60 g/dL (11.27 -16.99) 03/22/23 23:57 Hct 48.3 % (37-53) 03/22/23 23:57 MCV 95.3 fl (82-101) 03/22/23 23:57 MCH 32.7 pg (27-33) 03/22/23 23:57 MCHC 34.4 g/dL (30-55) 03/22/23 23:57 RDW 14.2 % (12.1-15.1 ) 03/22/23 23:57 Plt Count 435 10^3/cmm (157 -399) H 03/22/23 23:57 MPV 8.4 fL (7.4-10.4) 03/22/23 23:57 Neut % (Auto) 56.9 % 03/22/23 23:57 Lymph % (Auto) 32.9 % 03/22/23 23:57 [place] % (Auto) 7.7 % 03/22/23 23:57 Eos % (Auto) 1.9 % 03/22/23 23:57 Baso % (Auto) 0.4 % 03/22/23 23:57 Neut # (Auto) 7.52 10^3/uL (1.8 -7.7) 03/22/23 23:57 Lymph # (Auto) 4.3 10^3/uL (0.8- 4.8) 03/22/23 23:57 [place] # (Auto) 1.0 10^3/uL (0.2- 0.9) H 03/22/23 23:57 Eos # (Auto) 0.3 10^3/uL (0.0- 0.8) 03/22/23 23:57 Baso # (Auto) 0.1 10^3/uL (0.0- 0.1) 03/22/23 23:57 Nucleated RBC % (a uto) 0 % 03/22/23 23:57 Nucleated RBCs # 0.0 /100WBC 03/22/23 23:57 Sodium 139 mmol/L (136-1 45) 03/22/23 23:57 Potassium 3.5 mmol/L (3.5-5 .1) 03/22/23 23:57 Chloride 102 mmol/L (98-10 7) 03/22/23 23:57 Carbon Dioxide 27 mmol/L (22-29) 03/22/23 23:57 Anion Gap 13.5 (5-19) 03/22/23 23:57 BUN 7 mg/dL (6-20) 03/22/23 23:57 Creatinine 1.3 mg/dL (0.7-1. 2) H 03/22/23 23:57 GFR Calculation 60.5 mL/min (90-1 30) L 03/22/23 23:57 Glucose 86 mg/dL (65-115) 03/22/23 23:57 Calculated Osmolal ity 285 mOsm/kg (285- 295) 03/22/23 23:57 Calcium 8.9 mg/dL (8.5-10 .5) 03/22/23 23:57 Total Bilirubin 0.5 mg/dL (0.15-1 .2) 03/22/23 23:57 AST 17 U/L (0-40) 03/22/23 23:57 ALT 16 U/L (0-41) 03/22/23 23:57 Alkaline Phosphata se 63 U/L (40-130) 03/22/23 23:57 Total Protein 7.2 g/dL (6.6-8.7 ) 03/22/23 23:57 Albumin 4.2 g/dL (3.5-5.2 ) 03/22/23 23:57 Globulin 3.0 g/dL (1.3-4.6 ) 03/22/23 23:57 TSH 1.13 uIU/mL (0.27 -4.20) 03/22/23 23:57 Urine Color Light yellow (Ye llow) 03/23/23 00:01 Urine Appearance Clear (CLEAR) 03/23/23 00:01 Urine pH 6 (5-7) 03/23/23 00:01 Ur Specific Gravit y 1.015 (1.005-1.0 30) 03/23/23 00:01 Urine Protein Neg (Negative) 03/23/23 00:01 Urine Glucose (UA) Norm (Normal) 03/23/23 00:01 Urine Ketones Negative (Negati ve) 03/23/23 00:01 Urine Blood Trace (Negative) H 03/23/23 00:01 Urine Nitrate Negative (Negati ve) 03/23/23 00:01 Urine Bilirubin Neg (Negative) 03/23/23 00:01 Urine Urobilinogen Neg mg/dL (Negati ve) 03/23/23 00:01 Ur Leukocyte Naomi ase Negative (Negati ve) 03/23/23 00:01 Urine RBC 0-4 /hpf (0-2) H 03/23/23 00:01 Urine WBC None /hpf (0-5) 03/23/23 00:01 Ur Squamous Epith Cells Rare /hpf (0-5) 03/23/23 00:01 Amorphous Sediment Not Reportable 03/23/23 00:01 Urine Bacteria None /hpf (NONE) 03/23/23 00:01 Salicylates < 0.3 mg/dL (3-10 ) L 03/22/23 23:57 Urine Opiates Scre en Negative ng/mL (N egative) 03/23/23 00:01 Acetaminophen < 5.0 ug/mL (10-3 0) L 03/22/23 23:57 Ur Barbiturates Sc reen Negative ng/mL (N egative) 03/23/23 00:01 Ur Phencyclidine S crn Negative ng/mL (N egative) 03/23/23 00:01 Ur Amphetamines Sc reen Positive ng/mL (N egative) H 03/23/23 00:01 U Benzodiazepines Scrn Negative ng/mL (N egative) 03/23/23 00:01 Urine Cocaine Scre en Negative ng/mL (N egative) 03/23/23 00:01 U Marijuana (THC) Screen Negative ng/mL (N egative) 03/23/23 00:01 Ethyl Alcohol 113 mg/dL (0-10) H 03/22/23 23:57 Vitals: Last Vital Signs Temp 98.0 F 03/28/23 06:00 Pulse 103 H 03/28/23 06:00 Resp 16 03/28/23 06:00 BP 123/80 03/28/23 06:00 Pulse Ox 97 03/28/23 06:00 O2 Del Method Room Air 03/28/23 06:00 Discharge Plan Discharge Patient Disposition: Home Condition: Stable Prescriptions: New aripiprazole 10 mg Tablet 10 mg PO DAILY 30 Days Qty: 30 1RF Continued Neurontin 300 mg capsule 300 mg PO 3XD Discontinued dextroamphetamine-amphetamine 30 mg capsule,extended release 24hr 30 mg PO QAM 30 Days Qty: 30 0RF Hold Instructions: Non-Compliance Rx Instructions: Take 10 mg with the 30 mg for total 40 mg daily dextroamphetamine-amphetamine [Adderall XR] 10 mg capsule,extended release 24hr 10 mg PO QAM Rx Instructions: Take 10 mg with the 30 mg for total 40 mg daily Discharge Orders: Discharge Order (Routine); Ordered 03/28/23 Ordered By: Isaias Ortega Referrals: [employer] [Other] [facility] [Outside] - 03/30/23 9:30 am (Initial appointment 03/30/23 @ 9:30 am with Rachana Marino) Ron Hightower MD [Primary Care Provider] - 03/31/23 11:15 am (Follow up) Discharge Diet: Usual diet Discharge Activity: Resume usual activity Patient Instructions: Aripiprazole (By mouth) (Rachel Ramos Discmelt), Opioid Safety Activity Restrictions/Additional Instructions: Recommend careful reinitiation of adderall at low dose only initially not to exceed 20mg per day. Discharge Attestations NPU Time Spent in Discharge Care*: less than 30 min Coding Level of Care Code Acute Code for Chg Fwd Diagnoses Paranoid F22 Smoker unmotivated to quit F17.200 ADHD, adult residual type F90.8 Helene F30.9 Psychosis F29
[2023-03-28 13:56] VITALS: BP 123/80; PULSE 103; RESP 16; TEMP 36.7; O2SAT 97
== END 2023-03-28 15:26 | disposition home or self-care (01) | DRG 885 ==
LOC: ER 03-23 00:26 → NP 03-23 00:36
PROVIDERS: Nurse Practitioner Family; Admitting Provider Psychiatry & Neurology Psychiatry; Emergency Provider Internal Medicine; PCP Family Medicine Adult Medicine; Visit Provider Psychiatry & Neurology Psychiatry
DX: F22 Delusional disorders (principal); K50.90 Crohn's disease, unspecified, without complications; F30.9 Manic episode, unspecified; F29 Unspecified psychosis not due to a substance or known physiological condition; F90.8 Attention-deficit hyperactivity disorder, other type; I12.9 Hypertensive chronic kidney disease with stage 1 through stage 4 chronic kidney disease, or unspecified chronic kidney disease; F17.220 Nicotine dependence, chewing tobacco, uncomplicated; N18.2 Chronic kidney disease, stage 2 (mild); G62.9 Polyneuropathy, unspecified
CPT/HCPCS: 80053; 80306; 80307; 81001; 84443; 85025; 93005; 97150; 97165; 99285

== ENCOUNTER → 2023-07-13 11:30 | Outpatient (BNVA) | payer BC, SELFPAY | PROVIDERS: PCP Family Medicine Adult Medicine; Visit Provider Family Medicine Adult Medicine | DX: N18.2 Chronic kidney disease, stage 2 (mild) (principal) | CPT/HCPCS: 80053 ==

== ENCOUNTER → 2023-09-19 12:33 | Outpatient (BNVA) | payer BC, SELFPAY | PROVIDERS: PCP Family Medicine Adult Medicine; Visit Provider Nurse Practitioner | DX: Z79.899 Other long term (current) drug therapy (principal) | CPT/HCPCS: 80053; 80061; 83036 ==

== ENCOUNTER → 2023-12-05 10:29 | Outpatient (BNVA) | payer BC, MEDICAID, SELFPAY | PROVIDERS: PCP Family Medicine Adult Medicine; Visit Provider Nurse Practitioner | DX: R09.81 Nasal congestion (principal); J02.9 Acute pharyngitis, unspecified | CPT/HCPCS: 87426; 87880 ==

== ENCOUNTER → 2024-02-01 13:43 | Outpatient (BNVA) | payer BC, MEDICAID, SELFPAY | PROVIDERS: PCP Family Medicine Adult Medicine; Visit Provider Orthopaedic Surgery | DX: M54.50 Low back pain, unspecified (principal); M54.9 Dorsalgia, unspecified | CPT/HCPCS: 72110 ==

== ENCOUNTER 2024-02-13 13:38 | Emergency (ER) | payer BC, MEDICAID, SELFPAY ==
[2024-02-13 14:18] VITALS: BP 127/85; PULSE 103; TEMP 36.5; O2SAT 99; BMI 27.1
[2024-02-13 14:52] VITALS: BP 138/90; PULSE 84; RESP 16; O2SAT 98
--- NOTE | 2024-02-13 15:05 | USCV_ITS ---
Andrade Garrett Age: 43 Gender: M : 1980 Exam Date: 02/13/2024 15:24 Ordering Phys: Lane Aviles DO Technologist: CT [place] [facility] [place]: PROCEDURES: Venous duplex imaging was performed in only the right lower extremity. FINDINGS: Acute right popliteal and peroneal DVT. CONCLUSIONS Acute right popliteal and peroneal DVT. Dr. Rosa Santos DO (Electronically Signed) Final Date: 13 February 2024 16:11 S
--- NOTE | 2024-02-13 15:15 | ED_ITS ---
HPI - Extremity Problem General: Chief complaint: Extremity Problem,Nontraumatic Stated complaint: right leg swollen shooting pain Time Seen by Provider: 02/13/24 13:44 History of Present Illness: 43-year-old male presents to the emergen cy room with complaint of severe right lower leg pain. Several days ago his foot got caught in a extension ladder when it collapsed but nothing in his lower leg. He feels like he has a sharp charley horse in the lateral aspect of his right lower leg. He woke up with it this morning. He has a history of back problems he does have some radicular-like symptoms. He has had to start using a cane to walk. He has no particular back pain. He does have pain with passive range of motion and even light palpation. Has not had any fever sweats or chills no chest pain or shortness of breath no history of DVT or PE Associated symptoms: Deny chest pain, fever(s) or rash Related Data Previous Rx's Medication Instructions Recorded risperidone 0.5 mg tablet 0.75 mg (1.5 x 0.5 mg) PO BID #90 11/02/23 (Risperdal) tabs gabapentin 300 mg capsule 300 mg PO 3XD #90 caps 11/21/23 (Neurontin) benztropine 0.5 mg tablet 0.5 mg PO BID PRN EPS #60 tabs 12/26/23 baclofen 10 mg tablet See Rx Instructions .Route 01/15/24 .COMPLEX #30 tabs tadalafil 20 mg tablet See Rx Instructions .Route 01/15/24 .COMPLEX #30 tabs clonazepam 1 mg tablet 1 mg PO .HS #30 tabs 01/29/24 apixaban 5 mg (74 tabs) tablets in See Rx Instructions PO .COMPLEX 02/13/24 a dose pack (Eliquis DVT-PE Treat #74 ea 30D Start) tramadol 50 mg tablet 50 mg PO BID PRN pain #20 tabs 02/13/24 Allergies Allergy/AdvReac Type Severity Reaction Status Date / Time ciprofloxacin [From Cipro] Allergy Severe ALGY-Swell Verified 02/13/24 14:25 Lip/Tongue/Throat Review of Systems Const: Denies: fever(s) or chills Card: Denies: chest pain Resp: Denies: dyspnea GI: Denies: abdominal pain : Denies: dysuria, urinary frequency or urinary urgency Musc: Denies: neck pain or back pain Skin/Breast: Denies: rash PFSH ED PFSH: Medical History On combination antipsychotic drug therapy Cannabis abuse Nicotine dependence, chewing tobacco, uncomplicated Bipolar disorder with psychotic features BPH loc w urin obs/LUTS Psychiatric care Insomnia disorder 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 Smoker unmotivated to quit ADHD, adult residual type Diverticulosis CKD (chronic kidney disease) stage 2, GFR 60-89 ml/min History of spinal fracture L2 level in 2000 Peripheral neuropathic pain ADD (attention deficit disorder) Crohn disease Surgical History History of arthroscopic knee surgery right knee Social History Smoking and tobacco/nicotine status: unknown if used tobacco/nicotine Alcohol intake: current Alcohol intake frequency: few times a month Substance/Drug Use: never Caregiver/support person: No Lives independently: Yes Household members: spouse Marital status: service: Yes Current occupational status: employed Do you think of yourself as: Straight/Heterosexual Current gender identity: Male Physical Exam Const: COMMON NORMALS: no acute distress GENERAL APPEARANCE: cooperative and comfortable ORIENTATION/CONSCIOUSNESS: Yes awake, Yes oriented to person, Yes oriented to place and Yes oriented to time HENMT: COMMON NORMALS: normocephalic, atraumatic and hearing grossly normal bilaterally HEAD & SCALP: normocephalic and atraumatic Resp: COMMON NORMALS: normal respiratory effort, No retractions, No use of accessory muscles and clear to auscultation bilaterally AUSCULTATION: clear to auscultation bilaterally Cardio: COMMON NORMALS: regular rate, regular rhythm and No murmurs present (Cardio) RATE: regular rate RHYTHM: regular rhythm GI: COMMON NORMALS: Soft to palpation and No hepatosplenomegaly present AUSCULTATION: Yes normoactive bowel sounds PALPATION: Yes Soft to palpation, No Tenderness to palpation present (GI), No Guarding due to palpation present (GI) and Yes No hepatosplenomegaly present Extremity: COMMON NORMALS: normal to inspection and capillary refill normal OTHER: Positive Homans' sign Neuro: SENSORIUM/ORIENTATION: Yes oriented to person, Yes oriented to place and Yes oriented to time Skin: COMMON NORMALS: no rashes or lesions noted GENERAL SKIN EXAM: no rashes or lesions noted Course Vital Signs: Vital signs: Vital Signs Temperature 97.7 F 02/13/24 14:18 Pulse Rate 81 02/13/24 17:00 Respiratory Rate 16 02/13/24 17:00 Blood Pressure 131/95 02/13/24 17:00 Pulse Oximetry 96 02/13/24 17:00 Oxygen Delivery Me thod Room Air 02/13/24 16:19 MDM - Extremity (Nontraumatic) Medical Decision Making Ultrasound shows DVT given Lovenox started on Eliquis. Discussed very specifically the patient that he would need to continue on the Eliquis after you finish the prescription we gave him it was imperative that he go to his doctor and get another prescription and not just finished that prescription and quit. Discussed if you have any chest pain or shortness of breath return. Medical Records I reviewed the patient's medical records. Lab Data I reviewed the patient's lab results. All radiology interpretation(s) finalized by discharge Discharge Plan Discharge Patient Disposition: Home Clinical Impression: Deep vein thrombosis of lower extremity Condition: Stable Prescriptions: New Eliquis DVT-PE Treat 30D Start 5 mg (74 tabs) tablets,dose pack See Rx Instructions .ROUTE .COMPLEX Qty: 74 0RF Rx Instructions: orally per package directions No Action risperidone [Risperdal] 0.5 mg tablet 0.75 mg PO BID Qty: 90 2RF Neurontin 300 mg capsule 300 mg PO 3XD Qty: 90 5RF benztropine 0.5 mg tablet 0.5 mg PO BID PRN (Reason: EPS) Qty: 60 1RF tadalafil 20 mg tablet See Rx Instructions .ROUTE .COMPLEX Qty: 30 5RF Dose Instruction: TAKE 1 TABLET BY MOUTH EVERY DAY Rx Instructions: TAKE 1 TABLET BY MOUTH EVERY DAY baclofen 10 mg tablet See Rx Instructions .ROUTE .COMPLEX Qty: 30 1RF Dose Instruction: TAKE 1 TABLET BY MOUTH every night AT BEDTIME NEEDED FOR muscle spasm Rx Instructions: TAKE 1 TABLET BY MOUTH every night AT BEDTIME NEEDED FOR muscle spasm clonazepam 1 mg tablet 1 mg PO .HS Qty: 30 2RF tramadol 50 mg tablet 50 mg PO BID PRN (Reason: pain) Qty: 20 0RF Discharge Orders: Discharge ED (Routine); Ordered 02/13/24 Ordered By: Lane Aviles Referrals: Ron Hightower MD [Primary Care Provider] - Discharge Diet: Usual diet Discharge Activity: Resume usual activity Patient Instructions: Opioid Safety, Pain Management Activity Restrictions/Additional Instructions: Thank you for choosing [facility] for your healthcare needs today. It is very important that you follow up as instructed or that you return to the Emergency Department should you have concerns or if your condition changes or worsens in any way. You are seen in the emergency room with leg pain. Ultrasound showed you had to have a clot in your leg. You are given initial dose of blood thinner and will discharge you on Eliquis you should start today. Follow the package instructions. Follow-up with your primary care doctor you should continue on the Eliquis until you are specifically told that you should stop it. This is the first 30 days you will need a refill from your primary care physician. Coding Level of Care Code ED Baseball Sewer Hand for Loretta Cody
[2024-02-13] MEDS: dexamethasone 10 mg/mL INJ IM (15:51)
[2024-02-13 16:10] VITALS: RESP 18; O2SAT 97
[2024-02-13] MEDS: morphine 4 mg/mL SDV 1 mL IVP (16:10)
[2024-02-13] MEDS: ketorolac 30 mg/mL INJ IVP (16:13)
[2024-02-13] MEDS: ondansetron 2 mg/ML SDV 2 mL 4 MG IVP (16:13)
[2024-02-13 16:19] VITALS: BP 148/109; PULSE 78; RESP 18; O2SAT 96
[2024-02-13] MEDS: enoxaparin 100 mg/mL Syringe 90 MG SUBCUT (16:23)
[2024-02-13 17:00] VITALS: BP 131/95; PULSE 81; RESP 16; O2SAT 96
== END 2024-02-13 17:03 | disposition home or self-care (01) ==
PROVIDERS: Emergency Provider Family Medicine; PCP Family Medicine Adult Medicine
DX: I82.409 Acute embolism and thrombosis of unspecified deep veins of unspecified lower extremity (principal); N18.2 Chronic kidney disease, stage 2 (mild)
CPT/HCPCS: 93971; 96372; 96374; 96375; 99285; J1100; J1650; J1885; J2270; J2405

== ENCOUNTER 2024-02-16 08:00 | Outpatient (CLI) | payer BC, MEDICAID, SELFPAY ==
--- NOTE | 2024-02-16 08:00 | MR_ITS ---
WS: [id number] MRI LUMBAR SPINE NONCONTRAST HISTORY: Back Pain COMPARISON: None available. TECHNIQUE: Sagittal and axial multisequence imaging is submitted. Normal lumbar alignment with no compression fractures or marrow edema. Disc spaces and vertebral body heights are well-preserved. Conus terminates normally at L1-2 disc level. L1-L2: Mild disc bulging. Mild bilateral foraminal stenosis. L2-L3: Mild ligamentum flavum and facet arthritis. Mild bilateral foraminal stenosis. L3-L4: Mild annular disc bulging with mild ligamentum flavum and facet arthritis. Mild central with b ilateral subarticular recess and foraminal stenosis. Disc encroachment upon the L3 and L4 nerve roots . Slightly greater LEFT foraminal stenosis. L4-L5: Mild disc bulging with mild ligamentum flavum hypertrophy. Mild bilateral foraminal stenosis. Slightly greater LEFT foraminal stenosis. Disc does contact the exiting nerve roots. L5-S1: Mild disc bulging with a central disc protrusion. Mild facet arthritis. Mild to moderate bilat eral foraminal stenosis. There is disc contacting the exiting L5 nerve roots. Paravertebral soft tissues are negative. MR/MR lumbar spine wo con* [id number] IMPRESSION: 1. No high-grade central or foraminal stenosis. 2. Bilateral foraminal narrowing throughout the lumbar spine. Suspect congenit ally shortened pedicles. At this time there is no high-grade stenosis. There is slightly greater encroachment upon the LEFT L3-4, L4-5 and L5-S1 foramen.
== END 2024-02-16 08:13 | disposition home or self-care (01) ==
PROVIDERS: PCP Family Medicine Adult Medicine; Visit Provider Orthopaedic Surgery
DX: M99.63 Osseous and subluxation stenosis of intervertebral foramina of lumbar region (principal); M51.26 Other intervertebral disc displacement, lumbar region
CPT/HCPCS: 72148

== ENCOUNTER → 2024-03-04 09:58 | Outpatient (BNVA) | payer BC, SELFPAY | PROVIDERS: PCP Family Medicine Adult Medicine; Visit Provider Family Medicine | DX: I12.9 Hypertensive chronic kidney disease with stage 1 through stage 4 chronic kidney disease, or unspecified chronic kidney disease (principal); N18.2 Chronic kidney disease, stage 2 (mild); I82.431 Acute embolism and thrombosis of right popliteal vein | CPT/HCPCS: 80048 ==

== ENCOUNTER → 2024-05-08 15:19 | Outpatient (BNVA) | payer BC, SELFPAY | PROVIDERS: PCP Family Medicine Adult Medicine; Visit Provider Family Medicine | DX: R50.9 Fever, unspecified (principal) | CPT/HCPCS: 87400; 87426; 87880 ==

== ENCOUNTER → 2024-10-07 12:18 | Outpatient (BNVA) | payer BC, MEDICAID, SELFPAY | PROVIDERS: PCP Family Medicine; Visit Provider Family Medicine | DX: I10 Essential (primary) hypertension (principal); I26.99 Other pulmonary embolism without acute cor pulmonale; K85.20 Alcohol induced acute pancreatitis without necrosis or infection; N18.2 Chronic kidney disease, stage 2 (mild) | CPT/HCPCS: 80053; 85025 ==

== ENCOUNTER 2024-11-05 22:46 | Emergency (ER) | payer BC, MEDICAID, SELFPAY ==
--- OUTSIDE RECORDS SUMMARY | 2014-07-04 11:54 | XMS_ITS | Continuity of Care Document ---
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 [address] , [address], [place], [place], [id number] , [place]. tel: [phone] [facility], [address], [place], [id number] , [place] tel: [phone] 03 [facility] Dental Dental examination 5 Rosa Blankenship. [address], [address], [place], [place], [address] , [place]. tel:[phone] OFFICE/OUTPA TIENT VISIT, [facility], [address], [place], [id number] , [place] tel: [phone] 03 [facility] Medical hypertension (chief complaint)cou gh (chief complaint)dep ression (chief complaint) Bipolar disorder, unspecifiedHyper tension, UnspecifiedCough 4 Rolando Krishnamurthy MD. [address], [address], [place], [place], [id number] , [place]. tel:[phone] OFFICE/OUTPA TIENT VISIT, [facility], [address], [place], [address] , [place] tel: [phone] 03 [facility] Medical fever (chief complaint)cou gh (chief complaint) FeverFlu-like symptomsDehydrat ion, mild Dec-0 2 4 Estella Powell. [address] , [address], [place], [place], [address] , [place]. tel: [phone] [facility], [facility] [address], [place], [id number] , [place] tel: [phone] 03 [facility] Dental Dental examination Dec-0 4 Rosa Blankenship. [address], [address], [place], [place], [address] , [place]. tel: [phone] [facility], [address] [place] [address], [id number] , [place] tel: [phone] 03 [facility] Dental 4 Rosa Blankenship. [address] , [facility] [address], [place], [place], [id number] , [place]. tel: [phone] [facility], [address], [place], [address] , [place] tel: [phone] 03 [facility] Dental Dental examination 4 Rosa Blankenship. [address] , [address], [place], [place], [address] , [place]. tel: [phone] PSY DX INTERVIEW WITHOUT MEDICAL [facility], [address] [place] [address], [id number] , [place] tel: [phone] [facility] Behavioral stressed (chief complaint)anx iety (chief complaint)sle ep disturbance (chief complaint) Bipolar disorder, unspecifiedAnxie ty Jul-2 4 Shelly Franco. [address], [place], [address] , [place]. tel: [phone] [facility], [facility] [address], [place], [address] , [place] tel: [phone] 03 [facility] Dental Dental examination Jul- 4 Rosa Blankenship. [address], [address], [place], [place], [address] , [place]. tel: [phone] OFFICE/OUTPA TIENT VISIT, [facility], [facility]., [address], [place], [id number] , [place] tel: [phone] 03 [facility] Medical hypertension (chief complaint) OverweightHypert ension, Unspecified 4 Barbara Riggins. [address] , [address], [place], [place], [address] , [place]. tel: [phone] [facility], [facility]., [address], [place], [address] , [place] tel: [phone] 03 [facility] Medical No Information 4 Barbara Riggins. [address] , [address], [place], [place], [address] , [place]. tel: [phone] OFFICE/OUTPA TIENT VISIT, [facility], [facility]., [address], [place], [address] , [place] tel: [phone] 03 [facility] Medical hypertension (chief complaint) Hypertension, UnspecifiedOverw eightAnxiety 4 Barbara Riggins. [address] , [address], [place], [place], [address] , [place]. tel: [phone] Family History Family Member Type Diagnosis Age At Onset Father Problem (finding) hypertension Father Problem (finding) No Family hist ory of No history of Other Paternal grandfather Problem (finding) Heart disease Paternal grandfather Problem (finding) hypertension Payers Payer name Insurance type Covered constitution party ID Authoriza tion(s) No Information Social [...]
--- OUTSIDE RECORDS SUMMARY | 2024-08-05 05:00 | XMS_ITS ---
Author Organization [facility] Address [address], [place] [id number] Care Team Providers Care Funeral Home Location Manager Name Role Phone Shereen BIRD, Ronan Unavailable [phone] Ricardo BIRD, Naman Unavailable Unavailable Harmony Mascorro Unavailable [phone] Allergies Allergen (clinical drug ingredient) Drug/Non Drug Allergy documented on EMR Reaction Allergy Type Onset Date Status ciprofloxacin ciprofloxacin anaphylaxis Drug Allergy Active REASON FOR VISIT New patient evaluation, Did Dr. Silva do a L3-L4 transforaminal epidural injection as planned? Social History Tobacco Use: Social History Observation Description Date Details (start date - stop date) Never Smoker NA - NA Tobacco use: Question Answer Notes Additional Findings: Tobacco User Chews tobacco 1/4 can a day : nonsmoker Encounters Encounter Location Date Provider [facility] [address], [place] [id number] 08/05/2024 Harmony Urena Other prison (current) drug therapy Z79.899 Assessments Encounter Date Diagnosis (ICD Code) Assessment Notes Treatment Notes Treatment Clinical Notes Section Notes 08/05/2024 Other long term acute care registered nurse (current) drug therapy (ICD-10 - Z79.899) Patient was given a copy of the Treatment Agreement; signed on . 2022 opioid (OUD) risk tool score = . This places the patient in the low/high risk category. Plan urine toxicology screen today in anticipation of possibly starting opioid therapy at future visit as well as to assess for any prescribed, unprescribed, and / or illicit controlled substance(s). Plan Of Treatment Treatment Notes Assessment Notes Other prison (current) drug therapy Patient was given a copy of the Treatment Agreement; signed on . 2022 opioid (OUD) risk tool score = . This places the patient in the low/high risk category. Plan urine toxicology screen today in anticipation of possibly starting opioid therapy at future visit as well as to assess for any prescribed, unprescribed, and / or illicit controlled substance(s). Progress Notes * Elmer GARRETTOB:1980 (44 yo M)Acc No.[id number]:08/05/2024 Patient: Andrade BAUMANN Provider: FRANKY Elmore :1980 A ge:44 Y S ex:Male Date:08/05/2024 Address:[address] [place] [address] Subjective: * Chief Complaints: * 1 . New patient evaluation. 2. Did Dr. Silva do a L3-L4 transforaminal epidural injection as planned?. * HPI: C ervical Spine: 44 year old male presents with c/o pain f or * i n the neck. T horacic Spine: c/o pain f or * i n the mid back. L umbar Spine: c/o pain f or * i n the lower back. S acro-Iliac / Coccyx: c/o pain f or * * . P otential Work or Litigation Related Injury: No: p atient stated pain is not due to a work or litigation related injury. P hysician's referral: Physician's referral received: f rom Dr. Naman Silva for lumbar stenosis with neurogenic claudication; pain relieved with medication; chronic continuous use of opioids; see scanned documents. P hysician/Clinic notes: Notes received from: [facility]; see scanned documents. P revious Imaging/Studies: X-rays o f the L-spine on 02/01/24; see scanned documents.? MRI o f the L-spine on 02/16/24; see scanned documents.? P revious Therapy: Previous therapy: p hysical therapy with benefit (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 injections by with good benefit, but has been fading . Medication history: b aclofen 20 mg; Flexeril 10 mg; Neurontin 300 mg; Ultram 50 mg. M edications: * ROS: O pthalmology: : N egative. H ENT: : N egative. C ardiovascular: : N egative. R espiratory: Sleep Apnea Screening: p atient described sleep as poor-fair with complaints of f requent awakenings, restless legs, excessive daytime sleepiness, falls asleep while driving, snoring, restlessness during sleep, difficulty in sleeping, thrashing about.?Patient has not had a sleep study. E pworth Sleepiness Scale: 3 . G astrointestinal: Positive for: a bdominal pain, diarrhea. M usculoskeletal: Positive for: j oint pain, joint stiffness. ? I ntegumentary/ Dermatology: : N egative. N eurological: Claustrophobic: n o. P ositive for: a rm weakness (left), numbness and tingling, tremors. P sychiatric: Positive for: c urrent psychiatric treatment. ? E ndocrine: : N egative. H ematology/Lymphatic: : N egative. M rei Genitourinary: Positive for: s exually active, difficulty with erection.? 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 * Surgical History: A rthroscopic knee surgery, right , Colonoscopy, 2018. * Hospitalization/Major Diagno stic Procedure: S lencho fracture, 1999 - 2000, Adverse reaction to Adderall for ADD caused episode of paranoia, 03/29/23. * Family History: F ather: 63 yrs, homicide. M other: alive 66 yrs. * Social History: T obacco use Additional Findings: Tobacco User C hews tobacco 1/4 can a day : n onsmoker M arijuana: yes; rarely; last occurrence: 07/02/23. M eth: no. O ther illicit drug use: no. M arried: yes. C hildren: 8. E ducation: college graduate. 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 E xercise: daily. H istory of welding/metal work: no. T ravel: [place] (2010). * Allergies: C iprofloxacin: Anaphylaxis. Objective: * Vitals: Therapeutic Interventions: * Therapeutic Interventions: 1 . D rug Screening Urine Sample : collected (results pending) 2 . I llicit drugs Social history : information is accurate regarding illicit drugs and dates of last use; if applicable. Patient confirmed that current listed medications are accurate and include all medications (prescribed and OTC) used within the past 2 months Assessment: * Assessment: 1. O ther long term acute care registered nurse (current) drug therapy - Z79.899 (Primary) Plan: * Treatment: * Preventive Medicine: Counseling: P ain Management: Follow-up Plan documented: Y es Pain Screening: * * Images: * Electronic signature of Kandice Urena FIRE RANGE TECHNICIAN on 11/05/2024 at 11:01 PM CDT Sign off status: Pending * Provider: FRANKY Elmore Date: 08/05/2024 Generated for Pauline rooney/Tucker/Sandra on: 11/05/2024 11:01 PM CDT History and Physical Notes * HPI (History of Present Illness) Category Sub-Category Detail Notes Category Not es Lumbar Spine pain in the lower back Cervical Spine pain in the neck Thoracic Spine pain in the mid back Sacro-Iliac / Coccyx pain * Medications Previous Therapy 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 injections by with good benefit, but has been fading Medication history: baclofen 20 mg; Flex eril 10 mg; Neurontin 300 mg; Ultram 50 mg Potential Work or Litigation Related Injury No: patient stated pain is not d ue to a work or litigation related injury Previous Imaging/Studies MRI of the L-spine on 02/16/24; see scanned documents X-rays of the L-spine on ; see scanned documents Physician's referral Physician's referra l received: from Dr. Naman Silva for lumbar stenosis with neurogenic claudication; pain relieved with medication; chronic continuous use of opioids; see scanned documents Physician/Clinic notes Notes received from: [facility]; see scanned documents
--- OUTSIDE RECORDS SUMMARY | 2024-11-05 23:01 | XMS_ITS | Patient Health Record ---
Author Organization [facility] Address [address] [place], [place] [id number] Care Team Providers Care Hemodialysis Patient Care Specialist Name Role Phone Ronan Regan MD Unavailable [phone] Naman Silva MD Unavailable Unavailable Harmony Mascorro Unavailable [phone] Allergies Allergen (clinical drug ingredient) Drug/Non Drug Allergy documented on EMR Reaction Allergy Type Onset Date Status ciprofloxacin ciprofloxacin anaphylaxis Drug Allergy Active Reason For Referral Reason Lumbar stenosis with neurogenic claudication; Pain relieved with medication; Chronic, continuous use of opioids Diagnosis 1 Spinal stenosis, lum bar region with neurogenic claudication (M48.062) Diagnosis 2 Opioid use, unspecif ied, uncomplicated (F11.90) Referring Provider First Name Naman Referring Provider Last Name Ricardo Referring Provider Speciality Pain Manag ement Referred Organization [facility] Referred Provider Ronan Regan Referred Address [address] [place], [id number], Referred Provider Specialty Pain Managem ent General Notes Amanda Cantrell 04:35:11 PM >Need demo with insurance info and phone number., Amanda Cantrell 06/26/2024 10:13:16 AM >Left message to request demo today., Amanda Cantrell 07/01/2024 05:43:16 PM >Sent for insurance verification.Zak Allison M 07/02/2024 08:12:39 AM >Added insurance to info. Active. No copay. Referral Priority Routine Social History Tobacco Use: Social History Observation Description Date Details (start date - stop date) Never Smoker NA - NA Tobacco use: Question Answer Notes Additional Findings: Tobacco User Chews tobacco 1/4 can a day : nonsmoker Problems Problem Type SNOMED Code ICD Code Onset Dates Problem Status W/U Status Risk Notes Problem Nondependent opioid abuse (727923204) Opioid use, unspecified, uncomplicated (F11.90) Active confirmed Problem Neurogenic claudication (972844801) Spinal stenosis, lumbar region with neurogenic claudication (M48.062) Active confirmed Plan Of Treatment No Information Insurance Providers Payer Name Payer Address Payer Phone Subscriber Number Group Number Insured Name Patient Relationship to Insured Coverage Start Date Coverage End Date [employer] [address] [address] [place] [phone] [id number] Andrade Garrett Self - patient is the insured Medical (General) History Medical History History ICD Code Lumbar stenosis with neurogenic claudica tion Chronic, continuous use of opioids Low back pain Deep vein thrombosis, right lower extrem ity Hypertension Cannabis abuse Nicotine dependence Bipolar disorder with psychotic features BPH loc with urin obs/LUTS Insomnia disorder 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
[2024-11-05 23:12] VITALS: BP 146/105; PULSE 113; RESP 14; TEMP 36.8; O2SAT 98; BMI 27.1
[2024-11-05 23:32] VITALS: BP 145/98; PULSE 102; O2SAT 97
[2024-11-05 23:49] VITALS: BP 145/98; PULSE 107; O2SAT 97
--- NOTE | 2024-11-05 23:50 | CTR_ITS ---
PROCEDURE INFORMATION: Exam: CT Maxillofacial With Contrast, Sinus Exam date and time: 11/05/2024 11:59 PM Age: 44 years old Clinical indication: Sinusitis; Acute; Additional info: Sinusitis, parasites TECHNIQUE: Imaging protocol: CT Maxillofacial with intravenous contrast. Focus on the sinuses. Radiation optimization: All CT scans at this facility use at least one of these dose optimization techniques: automated exposure control; mA and/or kV adjustment per patient size (includes targeted exams where dose is matched to clinical indication); or iterative reconstruction. Contrast material: OMNI 350; Contrast volume: 80 ml; Contrast route: INTRAVENOUS (IV); COMPARISON: No relevant prior studies available. RADIATION DOSE METRICS: Total DLP (mGy-cm): 686 FINDINGS: Frontal sinuses: No air-fluid levels. Ethmoid sinuses: No air-fluid levels. Sphenoid sinuses: No air-fluid levels. Maxillary sinuses: No air-fluid levels. Ostiomeatal units are patent. Nasal cavity: Unremarkable. Orbital cavities: Orbits are normal. Globes are unremarkable. Bones: Unremarkable. Soft tissues: Unremarkable. Teeth: Multiple missing teeth with numerous dental caries involving the remaining teeth. Periapical lucencies involving multiple right sided mandibular teeth. CT/CT facial bones w con [id number] IMPRESSION: 1. No evidence of sinusitis. 2. Multiple dental caries and periapical lucencies. Recommend dental evaluation as an outpatient.
[2024-11-05 23:54] LABS: Hematocrit 42.5 % (37-53); Hemoglobin 14.90 g/dL (11.27-16.99); Mean Corpuscular HGB Conc 35.1 g/dL (30-55); Mean Corpuscular Hemoglobin 32.4 pg (27-33); Mean Corpuscular Volume 92.4 fl (82-101); Nucleated Red Blood Cells % 0 %; Platelet Count 351 10^3/cmm (157-399); Red Blood Count 4.60 10^6/uL (3.85-5.65); White Blood Count 14.77 10^3/uL (3.29-11.43)
[2024-11-06] MEDS: iohexol 350 mg/mL 500 mL Btl (per mL) IV (00:05)
[2024-11-06 00:09] LABS: Alanine Aminotransferase 24 U/L (0-41); Albumin Level 4.1 g/dL (3.5-5.2); Alkaline Phosphatase 59 U/L (40-130); Anion Gap 16.5 (5-19); Aspartate Amino Transferase 18 U/L (0-40); Blood Urea Nitrogen 10 mg/dL (6-20); Calcium 9.1 mg/dL (8.5-10.5); Carbon Dioxide 24 mmol/L (22-29); Chloride 101 mmol/L (98-107); Creatinine Clr Calc Pharmacy 89.5116; Globulin 3.0 g/dL (1.3-4.6); Glucose 119 mg/dL (65-115); Osmolality Calculated 286 mOsm/kg (285-295); Potassium 3.5 mmol/L (3.5-5.1); Sodium 138 mmol/L (136-145); Total Protein 7.1 g/dL (6.6-8.7)
--- NOTE | 2024-11-06 00:20 | W.ED.HA ---
HPI - Headache General: Chief Complaint: Headache Stated Complaint: Drainage, Mucus, Head Pain, crusty eyes Time Seen by Provider: 11/05/24 23:22 History of Present Illness: Selected Entries 11/05/24 23:12 ED Triage Comment c/o pounding heada adriana that is causin g pain into the up per back/ neck. CO ngestion x 3 days, eye drainage and cough. Pt states that he blew his nose this evening and noticed little bugs, thinks they might have been m aggots. 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 Associated symptoms: Deny chest pain, fever(s), nausea or vomiting Related Data Home Medications ?Medication ?Instructions ?Recorded ?Confirmed apixaban 5 mg tablet 5 mg PO BID 10/07/24 10/29/24 folic acid 1 mg tablet 1 mg PO DAILY 10/07/24 10/29/24 hydromorphone 2 mg tablet 2 mg PO Q6H 10/07/24 10/29/24 hydroxyzine HCl 25 mg tablet 25 mg PO QID PRN 10/07/24 10/29/24 likjhh-pwsymvkd-jhuvnyy 2 cap PO TID 10/07/24 10/29/24 36,000-114,000-180,000 unit capsule,delay rel (Creon) multivitamin-ferrous 1 tab PO DAILY 10/07/24 10/29/24 fumarate-folic acid 18 mg-400 mcg tablet (Daily Multivitamin with Iron) pantoprazole 40 mg tablet,delayed 40 mg PO DAILY 10/07/24 10/29/24 release risperidone 4 mg tablet 4 mg PO BID 10/07/24 10/29/24 thiamine mononitrate (vit B1) 100 100 mg PO DAILY 10/07/24 10/29/24 mg tablet Previous Rx's ?Medication ?Instructions ?Recorded baclofen 20 mg tablet 20 mg PO DAILY #30 tabs 03/31/24 diazepam 10 mg tablet 10 mg PO ONCE PRN anxiety #1 tab 06/18/24 tadalafil 20 mg tablet See Rx Instructions .Route 07/19/24 .COMPLEX #30 tabs aspirin 81 mg chewable tablet 81 mg PO DAILY #100 tabs 08/06/24 doxycycline hyclate 100 mg capsule 100 mg PO BID 10 days #20 caps 08/06/24 losartan 25 mg tablet 25 mg PO DAILY blood pressure #90 08/06/24 tabs gabapentin 300 mg capsule 300 mg PO 3XD #90 caps 10/08/24 (Neurontin) cyclobenzaprine 7.5 mg tablet 7.5 mg PO TID 30 days #90 tabs 10/24/24 benztropine 0.5 mg tablet 0.5 mg PO BID PRN EPS #60 tabs 10/28/24 prednisone 20 mg tablet 20 mg PO DAILY #15 tabs 10/29/24 clonazepam 1 mg tablet 1 mg PO .HS #30 tabs 11/04/24 amoxicillin 875 mg-potassium 1 tab PO BID #20 tabs 11/06/24 clavulanate 125 mg tablet azelastine 205.5 mcg (0.15 %) 205.5 mcg (0.137 mL) intranasal 11/06/24 nasal spray (Astepro Allergy) BID #30 mL fluticasone propionate 50 2 spray intranasal Q12H #16 grams 11/06/24 mcg/actuation nasal spray,suspension (Flonase Allergy Relief) Allergies Allergy/AdvReac Type Severity Reaction Status Date / Time ciprofloxacin (From Cipro) Allergy Severe ALGY-Swell Verified 11/05/24 23:18 Lip/Tongue/Throat Review of Systems General: Reports: 10 or more systems reviewed and unremarkable except in HPI and below Const: Denies: fever(s), chills or body aches Eyes: Denies: change in vision ENMT: Reports: halitosis, nasal discharge, nasal congestion and other (Crawling small wormlike features that he noted 1 under his tongue, & nose); Denies: throat pain, odynophagia or mouth pain Card: Denies: chest pain, dyspnea on exertion or orthopnea Resp: Denies: dyspnea, productive cough or wheezing GI: Denies: abdominal pain, nausea or vomiting Musc: Denies: neck pain, back pain, extremity pain, joint pain, joint swelling or limited range of motion Skin/Breast: Denies: changes in skin color or dry skin Neuro: Denies: numbness in extremities or weakness in extremities Psych: Denies: anxiety or depression Nick/Lymph: Denies: easy bruising or easy bleeding PFS ED PFSH: Medical History (Updated 11/06/24 @ 00:41 by GOLD Be) Alcoholic pancreatitis hospitalized September 2024 at [facility] Deep vein thrombosis (DVT) of right lower extremity 11.5.24 provoked--after an injury; now on asa 4.29.25 Hypertension, essential atenolol, lisinopril, propranolol didn't work; tadalafil daily has really worked On combination antipsychotic drug therapy Cannabis abuse Nicotine dependence, chewing tobacco, uncomplicated Bipolar disorder with psychotic features BPH loc w urin obs/LUTS Psychiatric care Insomnia disorder 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 Smoker unmotivated to quit ADHD, adult residual type Diverticulosis CKD (chronic kidney disease) stage 2, GFR 60-89 ml/min History of spinal fracture L2 level in 2000 Peripheral neuropathic pain ADD (attention deficit disorder) Crohn disease says he was dxed in [place], colonoscopy 2017 Surgical History History of arthroscopic knee surgery right knee Family History Mother Bone disease Aplastic anemia Father Psychiatric illness Schizophrenia/ Bipolar Social History Smoking and tobacco/nicotine status: unknown if used tobacco/nicotine Quit status (tobacco/nicotine): has quit using Year quit tobacco: 2011 Alcohol intake: former Year of sobriety/quit date alcohol: 2024 Former alcohol use details: 1/2 pint daily until 09/2024--hospitalized for pancreatitis, now stopped Substance/Drug Use: never Caregiver/support person: No Lives independently: Yes Household members: spouse Marital status: Number of children: 4 Highest education level completed: Bachelor's Degree service: Yes Current occupational status: employed 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 Do you think of yourself as: Straight/Heterosexual Current gender identity: Male Physical Exam Const: COMMON NORMALS: no acute distress, average body habitus and patient oriented x3 HENMT: COMMON NORMALS: normocephalic and atraumatic HEAD & SCALP: normocephalic and atraumatic NOSE: Nasal discharge present mucoid Neck/C-Spine: COMMON NORMALS: full ROM and no lymphadenopathy Lymph: LYMPHATIC: no lymphadenopathy noted Chest: COMMONS NORMALS: normal inspection of the chest and normal palpation of entire chest wall Resp: COMMON NORMALS: normal respiratory effort, No retractions and No use of accessory muscles Cardio: COMMON NORMALS: regular rate and regular rhythm RATE: regular rate RHYTHM: regular rhythm GI: COMMON NORMALS: Normal to inspection, nondistended, normoactive bowel sounds present, Soft to palpation and non-tender PALPATION: Yes Soft to palpation : COMMON NORMALS: Yes no CVA tenderness BLADDER/KIDNEY EXAM: Yes no CVA tenderness Back/Pelvis: COMMON NORMALS: no CVA tenderness Neuro: COMMON NORMALS: patient oriented x3 Course Vital Signs: Vital signs: Vital Signs Temperature 98.2 F 11/05/24 23:12 Pulse Rate 92 11/06/24 01:01 Respiratory Rate 14 11/05/24 23:12 Blood Pressure 128/91 11/06/24 01:01 Pulse Oximetry 99 11/06/24 01:01 Oxygen Delivery Me thod Room Air 11/05/24 23:12 MDM - Headache Medical Decision Making Patient is a 44-year-old gentleman that was blowing his nose, after having sinusitis for 3 days, and had black small crawling worms, and noted a small black crawling worm under his tongue. I do not have any evidence of parasitic infection on CT, however have advised patient of sinus precautions, given Flonase, Astelin, Augmentin, and advised him to obtain kimani pinworm [id number] for further concerns. Lab Data 11/05/24 23:29 11/05/24 23:[address] 11/05/24 23:50 IMPRESSION: 1. No evidence of sinusitis. 2. Multiple dental caries and periapical lucencies. Recommend dental evaluation as an outpatient. Laboratory Results WBC 14.77 10^3/uL (3.29-11.43) H 11/05/24 23: RBC 4.60 10^6/uL (3.85-5.65) 11/05/24 23: Hgb 14.90 g/dL (11.27-16.99) 11/05/24 23: Hct 42.5 % (37-53) 11/05/24 23: MCV 92.4 fl (82-101) 11/05/24 23: MCH 32.4 pg (27-33) 11/05/24 23: MCHC 35.1 g/dL (30-55) 11/05/24 23: RDW 14.1 % (12.1-15.1) 11/05/24: Plt Count 351 10^3/cmm (157-399) 11/05/24 23: MPV 8.9 fL (7.4-10.4) 11/05/24 23: Neut % (Auto) 71.2 % 11/05/24 23: Lymph % (Auto) 16.2 % 11/05/24: [place] % (Auto) 9.0 % 11/05/24 23: Eos % (Auto) 3.0 % 11/05/24 23: Baso % (Auto) 0.3 % 11/05/24: Neut # (Auto) 10.51 10^3/uL (1.8-7.7) H 11/05/24: Lymph # (Auto) 2.4 10^3/uL (0.8-4.8) 11/05/24: [place] # (Auto) 1.3 10^3/uL (0.2-0.9) H 11/05/24: Eos # (Auto) 0.4 10^3/uL (0.0-0.8) 11/05/24: Baso # (Auto) 0.0 10^3/uL (0.0-0.1) 11/05/24: Nucleated RBC % (auto) 0 % 11/05/24: Nucleated RBCs # 0.0 /100WBC 11/05/24 23: Sodium 138 mmol/L (136-145) 11/05/24 23: Potassium 3.5 mmol/L (3.5-5.1) 11/05/24 23: Chloride 101 mmol/L (98-107) 11/05/24: Carbon Dioxide 24 mmol/L (22-29) 11/05/24 23: Anion Gap 16.5 (5-19) 11/05/24 23: BUN 10 mg/dL (6-20) 11/05/24 23: Creatinine 1.2 mg/dL (0.7-1.2) 11/05/24 23: GFR Calculation 65.8 mL/min (90-130) L 11/05/24 23: Glucose 119 mg/dL (65-115) H 11/05/24 23:29 Calculated Osmolality 286 mOsm/kg (285-295) 11/05/24 23:29 Calcium 9.1 mg/dL (8.5-10.5) 11/05/24 23:29 Total Bilirubin 0.5 mg/dL (0.15-1.2) 11/05/24 23: AST 18 U/L (0-40) 11/05/24 23: ALT 24 U/L (0-41) 11/05/24 23: Alkaline Phosphatase 59 U/L (40-130) 11/05/24 23: Total Protein 7.1 g/dL (6.6-8.7) 11/05/24 23: Albumin 4.1 g/dL (3.5-5.2) 11/05/24 23: Globulin 3.0 g/dL (1.3-4.6) 11/05/24 23:29 All radiology interpretation(s) finalized by discharge Discharge Plan Discharge Patient Disposition: Home Clinical Impression: URI, acute Condition: Stable Prescriptions: New amoxicillin-pot clavulanate 875-125 mg tablet 1 tab PO BID Qty: 20 0RF fluticasone propionate [Flonase Allergy Relief] 50 mcg/actuation spray,suspension 2 spray intranasal Q12H Qty: 16 0RF Rx Instructions: administer into each nostril azelastine [Astepro Allergy] 205.5 mcg (0.15 %) spray,non-aerosol 205.5 mcg intranasal BID Qty: 30 0RF Rx Instructions: administer into each nostril No Action diazepam 10 mg tablet 10 mg PO ONCE PRN (Reason: anxiety) Qty: 1 0RF Rx Instructions: Take 1 hour prior to procedure. risperidone 4 mg tablet 4 mg PO BID hydromorphone 2 mg tablet 2 mg PO Q6H pantoprazole 40 mg tablet,delayed release (DR/EC) 40 mg PO DAILY folic acid 1 mg tablet 1 mg PO DAILY hydroxyzine HCl 25 mg tablet 25 mg PO QID PRN Daily Multivitamin with Iron 18-400 mg-mcg tablet 1 tab PO DAILY thiamine mononitrate (vit B1) 100 mg tablet 100 mg PO DAILY apixaban 5 mg tablet 5 mg PO BID Creon 36,000-114,000- 180,000 unit capsule,delayed release(DR/EC) 2 cap PO TID Rx Instructions: administer with meals and/or snacks aspirin 81 mg tablet,chewable 81 mg PO DAILY Qty: 100 0RF doxycycline hyclate 100 mg capsule 100 mg PO BID 10 Days Qty: 20 0RF losartan 25 mg tablet 25 mg PO DAILY Qty: 90 1RF prednisone 20 mg tablet 20 mg PO DAILY Qty: 15 0RF Rx Instructions: 60MG for 3 days 40MG for 2 days 20MG for 2 days baclofen 20 mg tablet 20 mg PO DAILY Qty: 30 5RF tadalafil 20 mg tablet See Rx Instructions .ROUTE .COMPLEX Qty: 30 5RF Dose Instruction: TAKE 1 TABLET BY MOUTH EVERY DAY Rx Instructions: TAKE 1 TABLET BY MOUTH EVERY DAY sodium chloride 0.9 % Solution 4 ml epidural ONCE Qty: 10 0RF bupivacaine (PF) 0.25 % (2.5 mg/mL) solution 2 ml Infiltration ONCE Qty: 1 0RF lidocaine (PF) 20 mg/mL (2 %) solution 60 mg intra-articular ROUTINE Qty: 20 0RF dexamethasone sodium phos (PF) 10 mg/mL solution 8 mg intra-articular ONCE Qty: 2 0RF Neurontin 300 mg capsule 300 mg PO 3XD Qty: 90 5RF cyclobenzaprine 7.5 mg tablet 7.5 mg PO TID 30 Days Qty: 90 0RF benztropine 0.5 mg tablet 0.5 mg PO BID PRN (Reason: EPS) Qty: 60 1RF clonazepam 1 mg tablet 1 mg PO .HS Qty: 30 2RF Discharge Orders: Discharge ED (Routine); Ordered 11/06/24 Ordered By: Ariadna Wadsworth Referrals: Aurora Hines MD [Primary Care Provider, Family Practice] Patient Instructions: Upper Respiratory Infection (ED), Patient Portal & Quiana Instructions Activity Restrictions/Additional Instructions: Obtain [place] spray [id number] and lubricate your nose. Flonase, Astelin has been sent to your pharmacy. Your insurance may not cover these since they are [id number]-fhf-jejhtcr. As well, Augmentin has been sent to the pharmacy (amoxicillin?clavulanate) for your sinuses. Utilize probiotic or active culture yogurt to avoid infectious diarrhea. Diarrhea is somewhat common with this medication. You can obtain Kimani's pinworm [id number] if this is an ongoing issue. We did not see any evidence here on CT, or on physical examination, however prophylactically you are able to take this medication with your other medicines. 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
[2024-11-06 01:01] VITALS: BP 128/91; PULSE 92; O2SAT 99
== END 2024-11-06 01:02 | disposition home or self-care (01) ==
PROVIDERS: Emergency Provider Physician Assistant; PCP Family Medicine
DX: J06.9 Acute upper respiratory infection, unspecified (principal); Z79.82 Long term (current) use of aspirin; Z87.891 Personal history of nicotine dependence; I12.9 Hypertensive chronic kidney disease with stage 1 through stage 4 chronic kidney disease, or unspecified chronic kidney disease; N18.2 Chronic kidney disease, stage 2 (mild)
CPT/HCPCS: 70487; 80053; 85025; 99285; J7030

== ENCOUNTER 2024-11-07 21:57 | Inpatient (IN) | payer BC, SELFPAY ==
--- OUTSIDE RECORDS SUMMARY | 2014-07-04 11:54 | XMS_ITS | Continuity of Care Document ---
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 [address] , [address], [place], [place], [address] , [place]. tel: [phone] [facility]3], [address], [place], [address] , [place] tel: [phone] 03 [facility] Dental Dental examination 5 Rosa Blankenship. [address], [address], [place], [place], [address] , [place]. tel:[phone] OFFICE/OUTPA TIENT VISIT, [facility], [address], [place], [address] , [place] tel: [phone] 03 [facility] Medical hypertension (chief complaint)cou gh (chief complaint)dep ression (chief complaint) Bipolar disorder, unspecifiedHyper tension, UnspecifiedCough 4 Rolando Krishnamurthy MD. [address], [address], [place], [place], [address] , [place]. tel:[phone] OFFICE/OUTPA TIENT VISIT, [facility], [address], [place], [address] , [place] tel: [phone] 03 [facility] Medical fever (chief complaint)cou gh (chief complaint) FeverFlu-like symptomsDehydrat ion, mild Dec-0 2 4 Estella Powell. [address] , [address], [place], [place], [address] , [place]. tel: [phone] [facility], [facility]., [address], [place], [address] , [place] tel: [phone] 03 [facility] Dental Dental examination Dec-0 4 Rosa Blankenship. [address], [address], [place], [place], [address] , [place]. tel: [phone] [facility]3], [address] [place] [address], [id number] , [place] tel: [phone] 03 [facility] Dental 4 Rosa Blankenship. [address], [place], [place], [address] , [place]. tel: [phone] [facility], [address], [place], [address] , [place] tel: [phone] 03 [facility] Dental Dental examination 4 Rosa Blankenship. [address] , [address], [place], [place], [address] , [place]. tel: [phone] PSY DX INTERVIEW WITHOUT MEDICAL [facility]3], [address] [place] [address], [id number] , [place] tel: [phone] 03 [facility] Behavioral stressed (chief complaint)anx iety (chief complaint)sle ep disturbance (chief complaint) Bipolar disorder, unspecifiedAnxie ty Jul-2 4 Shelly Franco. [address], [place], [address] , [place]. tel: [phone] [facility], [facility] [address], [address] , [place] tel: [phone] 03 [facility] Dental Dental examination Jul- 4 Rosa Blankenship. [address], [address], [place], [place], [address] , [place]. tel: [phone] OFFICE/OUTPA TIENT VISIT, [facility], [facility]., [address], [place], [address] , [place] tel: [phone] 03 [facility] Medical hypertension (chief complaint) OverweightHypert ension, Unspecified 4 Barbara Riggins. [address] , [address], [place], [place], [address] , [place]. tel: [phone] [facility], [facility]., [address], [place], [address] , [place] tel: [phone] 03 [facility] Medical No Information 4 Barbara Riggins. [address] , [address], [place], [place], [address] , [place]. tel: [phone] OFFICE/OUTPA TIENT VISIT, [facility], [facility]., [address], [place], [address] , [place] tel: [phone] 03 [facility] Medical hypertension (chief complaint) Hypertension, UnspecifiedOverw eightAnxiety 4 Barbara Riggins. [address] , [address], [place], [place], [address] , [place]. tel: [phone] Family History Family Member Type Diagnosis Age At Onset Father Problem (finding) hypertension Father Problem (finding) No Family hist ory of No history of Other Paternal grandfather Problem (finding) Heart disease Paternal grandfather Problem (finding) hypertension Payers Payer name Insurance type Covered alliance party ID Authoriza tion(s) No Information Social History [...]
--- OUTSIDE RECORDS SUMMARY | 2017-03-31 05:00 | XMS_ITS | Continuity of Care Document ---
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 [address] [place], [address], [place]. tel:[phone] [facility], [address] [place] [address], [id number], [place] tel:[phone] [facility] Establish Care (chief complaint)U RI (chief complaint) Body mass index (BMI) 27.0-27.9, adultPain in throatSystemic viral illnessFever in other diseasesChronic midline low back pain with bilateral sciaticaOther chronic pain No Information Family History Family Member Type Diagnosis Age At Onset Problem (finding) Family history of hyper tension Payers Payer name Insurance type Covered republican ID Authoriza tion(s) SELF PAY Category A 09 [id number] Social History Type Description Quantity Date Captured [...] Status Goal Tdap. Due on due Goal Flu Vaccine. Due on due Goal Td vaccine. Due on due Goal Tdap. Due on [...] i f you feel tired. Take an jold-mfg-yqhlefq pain medicine if needed, such as acetaminophen (Tylenol), ibuprofen (Advil, Motrin), or naproxen (Aleve). Read and follow all instructions on the label. Be careful when taking nexb-eba-lxofxip cold or flu medicines and Tylenol at [...]
--- NOTE | 2024-11-07 21:59 | ECG_ITS ---
[employer] Test Date: 2024-11-07 Pat Name: Andrade Garrett Department: Room: Gender: Male Patient Office Rep: : 1980 Requested By: Marine Comer Order Number: [id number] Adrienne MD: SHAWANDA MOCTEZUMA Measurements Intervals Kemp Rate: 105 P: 61 DC: 132 QRS: 71 QRSD: 86 T: 44 QT: 328 QTc: 434 Interpretive Statements SINUS TACHYCARDIA POSSIBLE LEFT ATRIAL ENLARGEMENT [-0.1mV P-WAVE IN V1/V2] ABNORMAL RHYTHM ECG Compared to ECG 03/22/2023 23:55:16 No significant changes Electronically Signed On 11-11-2024 14:00:47 CDT by SHAWANDA MOCTEZUMA [email or web address]
--- NOTE | 2024-11-07 21:59 | XRR_ITS ---
PROCEDURE INFORMATION: Exam: XR Chest Exam date and time: 11/07/2024 10:45 PM Age: 44 years old Clinical indication: Condition or disease; Other: Mhe; Additional info: Psychiatric work up TECHNIQUE: Imaging protocol: Radiologic exam of the chest. Views: 1 view. COMPARISON: No relevant prior studies available. FINDINGS: Lungs: Unremarkable. No consolidation. Pleural spaces: Unremarkable. No pleural effusion. No pneumothorax. Heart/Mediastinum: Unremarkable. No cardiomegaly. Bones/joints: Unremarkable. XR/XR chest 1V portable [id number] IMPRESSION: No acute findings.
--- NOTE | 2024-11-07 22:00 | W.ED.PSYCHS ---
HPI - Psych General: Chief Complaint: Psychiatric Symptoms Stated Complaint: mhe Time Seen by Provider: 11/07/24 21:58 History of Present Illness: 44-year-old man with a history of alcoholism, pancreatitis, cannabis abuse, nicotine dependence, bipolar disorder with psychotic features and Crohn's disease who presents to the emergency room with police on a court ordered 96 hold. Related Data Home Medications ?Medication ?Instructions ?Recorded ?Confirmed apixaban 5 mg tablet 5 mg PO BID 10/07/24 10/29/24 folic acid 1 mg tablet 1 mg PO DAILY 10/07/24 10/29/24 hydromorphone 2 mg tablet 2 mg PO Q6H 10/07/24 10/29/24 hydroxyzine HCl 25 mg tablet 25 mg PO QID PRN 10/07/24 10/29/24 eowuad-cqchybyh-lcyoexz 2 cap PO TID 10/07/24 10/29/24 36,000-114,000-180,000 unit capsule,delay rel (Creon) multivitamin-ferrous 1 tab PO DAILY 10/07/24 10/29/24 fumarate-folic acid 18 mg-400 mcg tablet (Daily Multivitamin with Iron) pantoprazole 40 mg tablet,delayed 40 mg PO DAILY 10/07/24 10/29/24 release risperidone 4 mg tablet 4 mg PO BID 10/07/24 10/29/24 thiamine mononitrate (vit B1) 100 100 mg PO DAILY 10/07/24 10/29/24 mg tablet Previous Rx's ?Medication ?Instructions ?Recorded baclofen 20 mg tablet 20 mg PO DAILY #30 tabs 03/31/24 diazepam 10 mg tablet 10 mg PO ONCE PRN anxiety #1 tab 06/18/24 tadalafil 20 mg tablet See Rx Instructions .Route 07/19/24 .COMPLEX #30 tabs aspirin 81 mg chewable tablet 81 mg PO DAILY #100 tabs 08/06/24 doxycycline hyclate 100 mg capsule 100 mg PO BID 10 days #20 caps 08/06/24 losartan 25 mg tablet 25 mg PO DAILY blood pressure #90 08/06/24 tabs gabapentin 300 mg capsule 300 mg PO 3XD #90 caps 10/08/24 (Neurontin) cyclobenzaprine 7.5 mg tablet 7.5 mg PO TID 30 days #90 tabs 10/24/24 benztropine 0.5 mg tablet 0.5 mg PO BID PRN EPS #60 tabs 10/28/24 prednisone 20 mg tablet 20 mg PO DAILY #15 tabs 10/29/24 clonazepam 1 mg tablet 1 mg PO .HS #30 tabs 11/04/24 amoxicillin 875 mg-potassium 1 tab PO BID #20 tabs 11/06/24 clavulanate 125 mg tablet azelastine 205.5 mcg (0.15 %) 205.5 mcg (0.137 mL) intranasal 11/06/24 nasal spray (Astepro Allergy) BID #30 mL fluticasone propionate 50 2 spray intranasal Q12H #16 grams 11/06/24 mcg/actuation nasal spray,suspension (Flonase Allergy Relief) Allergies Allergy/AdvReac Type Severity Reaction Status Date / Time ciprofloxacin (From Cipro) Allergy Severe ALGY-Swell Verified 11/05/24 23:18 Lip/Tongue/Throat Review of Systems Narrative: Constitutional symptoms: Negative except as documented in HPI. Skin symptoms: Negative except as documented in HPI. Eye symptoms: Negative except as documented in HPI. ENMT symptoms: Negative except as documented in HPI. Respiratory symptoms: Negative except as documented in HPI. Cardiovascular symptoms: Negative except as documented in HPI. Gastrointestinal symptoms: Negative except as documented in HPI. Genitourinary symptoms: Negative except as documented in HPI. Musculoskeletal symptoms: Negative except as documented in HPI. Neurologic symptoms: Negative except as documented in HPI. Psychiatric symptoms: Negative except as documented in HPI. Endocrine symptoms: Negative except as documented in HPI. [facility] ED PFSH: Medical History (Updated 11/08/24 @ 00:36 by Marine Triplett MD) Alcoholic pancreatitis hospitalized September 2024 at [facility] Deep vein thrombosis (DVT) of right lower extremity 11..24 provoked--after an injury; now on asa 4.29.25 Hypertension, essential atenolol, lisinopril, propranolol didn't work; tadalafil daily has really worked On combination antipsychotic drug therapy Cannabis abuse Nicotine dependence, chewing tobacco, uncomplicated Bipolar disorder with psychotic features BPH loc w urin obs/LUTS Psychiatric care Insomnia disorder 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 Smoker unmotivated to quit ADHD, adult residual type Diverticulosis CKD (chronic kidney disease) stage 2, GFR 60-89 ml/min History of spinal fracture L2 level in 2000 Peripheral neuropathic pain ADD (attention deficit disorder) Crohn disease says he was dxed in [place], colonoscopy 2018 Surgical History History of arthroscopic knee surgery right knee Family History Mother Bone disease Aplastic anemia Father Psychiatric illness Schizophrenia/ Bipolar Social History Smoking and tobacco/nicotine status: unknown if used tobacco/nicotine Quit status (tobacco/nicotine): has quit using Year quit tobacco: 2011 Alcohol intake: former Year of sobriety/quit date alcohol: 2024 Former alcohol use details: 1/2 pint daily until 09/2024--hospitalized for pancreatitis, now stopped Substance/Drug Use: never Caregiver/support person: No Lives independently: Yes Household members: spouse Marital status: Number of children: 4 Highest education level completed: Bachelor's Degree service: Yes Current occupational status: employed 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 Skin: Warm, dry. Head: Normocephalic, atraumatic. Neck: Supple, trachea midline. Eye: Extraocular movements are intact. Ears, nose, mouth and throat: mucosa moist. Cardiovascular: Regular, Normal peripheral perfusion. Respiratory: Lungs are clear to auscultation, respirations are non-labored, breath sounds are equal, Symmetrical chest wall expansion. Gastrointestinal: Soft, Nontender, Non distended Musculoskeletal: Normal ROM, no deformity. Neurological: Alert and oriented, No focal neurological deficit observed. Psychiatric: Odd affect. Course Vital Signs: Vital signs: Vital Signs Temperature 98.0 F 11/08/24 00:17 Pulse Rate 107 H 11/08/24 00:17 Respiratory Rate 18 11/08/24 00:17 Blood Pressure 140/90 11/08/24 00:17 Pulse Oximetry 96 11/08/24 00:17 Oxygen Delivery Me thod Room Air 11/08/24 00:17 MDM - Psych Medical Decision Making Medical decision making: Differential diagnosis for patient with reported psychosis with plan for psychiatric admission including but not limited to and based on the above HPI, review of systems and physical exam: concerns for infection, alcohol intoxication, cardiac issues or other medical problems prior to psychiatric admission. Orders placed to evaluate differential diagnosis based on the above differential, HPI and physical exam labwork, ekg ordered to evaluate the pathologies and to clear the patient medically prior to psychiatric admission Chest x-ray: No acute process. No infiltrate. No pneumothorax. This was reviewed and interpreted by myself the emergency room physician. I also reviewed the radiology report. EKG: Time 2222. Rate 105. Sinus tachycardia, No ST-T changes, no ectopy, normal HI & QRS intervals, This was reviewed and interpreted by myself the ER physician at 2225 Lab Review: Laboratory results were reviewed and interpreted by myself the emergency room physician. - Medically cleared. - EKG shows no ischemic changes. - Blood alcohol level is negative, as well as salicylate and Tylenol. - Drug screen is negative - No signs of infection, urinalysis clear and white count is not elevated - No anemia. - BUN and creatinine are within normal limits. ?COVID and flu are negative. I reviewed the patient's medical record. Consultation: I spoke with Dr. Retana who is on-call for psychiatry who agrees to admission. Assessment and plan: Acute psychosis ?Patient is on a court ordered 96-hour hold. -Admission to neuropsychiatric unit for continued evaluation and treatment. - All lab work was reviewed and interpreted personally by myself, the ER physician - Evaluation and treatment of this problem were appropriate in the emergency setting Lab Data 11/07/24 22:19 11/07/24 22:19 Radiology Impressions Chest X-Ray 11/07/24 21:59 IMPRESSION: No acute findings. Laboratory Results WBC 11.77 10^3/uL (3.29-11.43) H 11/07/24 22:19 RBC 4.52 10^6/uL (3.85-5.65) 11/07/24 22:19 Hgb 14.60 g/dL (11.27-16.99) 11/07/24 22:19 Hct 41.7 % (37-53) 11/07/24 22:19 MCV 92.3 fl (82-101) 11/07/24 22:19 MCH 32.3 pg (27-33) 11/07/24 22:19 MCHC 35.0 g/dL (30-55) 11/07/24 22:19 RDW 14.1 % (12.1-15.1) 11/07/24 22:19 Plt Count 320 10^3/cmm (157-399) 11/07/24 22:19 MPV 8.7 fL (7.4-10.4) 11/07/24 22:19 Neut % (Auto) 64.2 % 11/07/24 22:19 Lymph % (Auto) 25.7 % 11/07/24 22:19 Meriwether % (Auto) 5.6 % 11/07/24 22:19 Eos % (Auto) 3.8 % 11/07/24 22:19 Baso % (Auto) 0.4 % 11/07/24 22:19 Neut # (Auto) 7.56 10^3/uL (1.8-7.7) 11/07/24 22:19 Lymph # (Auto) 3.0 10^3/uL (0.8-4.8) 11/07/24 22:19 Meriwether # (Auto) 0.7 10^3/uL (0.2-0.9) 11/07/24 22:19 Eos # (Auto) 0.5 10^3/uL (0.0-0.8) 11/07/24 22:19 Baso # (Auto) 0.1 10^3/uL (0.0-0.1) 11/07/24 22:19 Nucleated RBC % (auto) 0 % 11/07/24 22:19 Nucleated RBCs # 0.0 /100WBC 11/07/24 22:19 Sodium 135 mmol/L (136-145) L 11/07/24 22:19 Potassium 3.9 mmol/L (3.5-5.1) 11/07/24 22:19 Chloride 98 mmol/L (98-107) 11/07/24 22:19 Carbon Dioxide 22 mmol/L (22-29) 11/07/24 22:19 Anion Gap 18.9 (5-19) 11/07/24 22:19 BUN 10 mg/dL (6-20) 11/07/24 22:19 Creatinine 1.0 mg/dL (0.7-1.2) 11/07/24 22:19 GFR Calculation 81.2 mL/min (90-130) L 11/07/24 22:19 Glucose 119 mg/dL (65-115) H 11/07/24 22:19 Calculated Osmolality 280 mOsm/kg (285-295) L 11/07/24 22:19 Calcium 8.9 mg/dL (8.5-10.5) 11/07/24 22:19 Total Bilirubin 0.7 mg/dL (0.15-1.2) 11/07/24 22:19 AST 21 U/L (0-40) 11/07/24 22:19 ALT 25 U/L (0-41) 11/07/24 22:19 Alkaline Phosphatase 62 U/L (40-130) 11/07/24 22:19 Total Protein 7.0 g/dL (6.6-8.7) 11/07/24 22:19 Albumin 4.0 g/dL (3.5-5.2) 11/07/24 22:19 Globulin 3.0 g/dL (1.3-4.6) 11/07/24 22:19 TSH 1.49 uIU/mL (0.27-4.20) 11/07/24 22:19 Urine Color Yellow (Yellow) 11/07/24 22:41 Urine Appearance Clear (CLEAR) 11/07/24 22:41 Urine pH 7.5 (5-7) 11/07/24 22:41 Ur Specific Lincoln 1.009 (1.005-1.030) 11/07/24 22:41 Urine Protein Negative (Negative) 11/07/24 22:41 Urine Glucose (UA) Negative (Normal) 11/07/24 22:41 Urine Ketones Negative (Negative) 11/07/24 22:41 Urine Blood Negative (Negative) 11/07/24 22:41 Urine Nitrate Negative (Negative) 11/07/24 22:41 Urine Bilirubin Negative (Negative) 11/07/24 22:41 Urine Urobilinogen 1.0 mg/dL (Negative) 11/07/24 22:41 Ur Leukocyte Esterase Negative (Negative) 11/07/24 22:41 Urine RBC 0-2 /hpf (0-2) 11/07/24 22:41 Urine WBC 0-5 /hpf (0-5) 11/07/24 22:41 Ur Squamous Epith Cells 0-5 /hpf (0-5) 11/07/24 22:41 Amorphous Sediment Not Reportable 11/07/24 22:41 Urine Bacteria None seen /hpf (NONE) 11/07/24 22:41 Hyaline Casts 0-4 /lpf H 11/07/24 22:41 Salicylates < 0.3 mg/dL (3-10) L 11/07/24 22:19 Urine Opiates Screen Negative ng/mL (Negative) 11/07/24 22:41 Acetaminophen < 5.0 ug/mL (10-30) L 11/07/24 22:19 Ur Barbiturates Screen Negative ng/mL (Negative) 11/07/24 22:41 Ur Phencyclidine Scrn Negative ng/mL (Negative) 11/07/24 22:41 Ur Amphetamines Screen Negative ng/mL (Negative) 11/07/24 22:41 U Benzodiazepines Scrn Negative ng/mL (Negative) 11/07/24 22:41 Urine Cocaine Screen Negative ng/mL (Negative) 11/07/24 22:41 U Marijuana (THC) Screen Negative ng/mL (Negative) 11/07/24 22:41 Ethyl Alcohol < 10 mg/dL (0-10) 11/07/24 22:19 Influenza A (PCR) Negative (Negative) 11/07/24 22:14 Influenza Type B (PCR) Negative (Negative) 11/07/24 22:14 RSV (PCR) Negative (Negative) 11/07/24 22:14 SARS-CoV-2 (PCR) Negative (Negative) 11/07/24 22:14 All radiology interpretation(s) finalized by discharge Discharge Plan Discharge Patient Disposition: Admitted As Inpatient Clinical Impression: Acute psychosis Condition: Stable Coding Level of Care Code ED Seed Cleaning Manager for Loretta Cody
[2024-11-07 22:09] VITALS: BP 130/82; PULSE 120; RESP 18; TEMP 36.7; O2SAT 94; BMI 29.8
[2024-11-07 22:24] LABS: Hematocrit 41.7 % (37-53); Hemoglobin 14.60 g/dL (11.27-16.99); Mean Corpuscular HGB Conc 35.0 g/dL (30-55); Mean Corpuscular Hemoglobin 32.3 pg (27-33); Mean Corpuscular Volume 92.3 fl (82-101); Nucleated Red Blood Cells % 0 %; Platelet Count 320 10^3/cmm (157-399); Red Blood Count 4.52 10^6/uL (3.85-5.65); White Blood Count 11.77 10^3/uL (3.29-11.43)
[2024-11-07 22:51] LABS: Glucose Urine UA Negative (Normal); Nitrate Urine Negative (Negative); Specific Gravity, Urine 1.009 (1.005-1.030)
[2024-11-07 22:56] LABS: Add Urine Microscopic? YES
--- NOTE | 2024-11-07 23:03 | PC.NURSE ---
96 Hour Involuntary Hold Patient Rights have been reviewed with the patient and a copy of the same has been provided to him. Online Content Coordinator Krzysztof was present at bedside during the presentation of Rights.
[2024-11-07 23:05] LABS: Alanine Aminotransferase 25 U/L (0-41); Albumin Level 4.0 g/dL (3.5-5.2); Alkaline Phosphatase 62 U/L (40-130); Anion Gap 18.9 (5-19); Aspartate Amino Transferase 21 U/L (0-40); Blood Urea Nitrogen 10 mg/dL (6-20); Calcium 8.9 mg/dL (8.5-10.5); Carbon Dioxide 22 mmol/L (22-29); Chloride 98 mmol/L (98-107); Creatinine Clr Calc Pharmacy 95.7947; Globulin 3.0 g/dL (1.3-4.6); Glucose 119 mg/dL (65-115); Osmolality Calculated 280 mOsm/kg (285-295); Potassium 3.9 mmol/L (3.5-5.1); Sodium 135 mmol/L (136-145); Thyroid Stimulating Hormone 1.49 uIU/mL (0.27-4.20); Total Protein 7.0 g/dL (6.6-8.7)
[2024-11-07 23:06] LABS: Acetaminophen < 5.0 ug/mL (10-30); Alcohol Level < 10 mg/dL (0-10); Salicylate < 0.3 mg/dL (3-10)
[2024-11-07 23:16] LABS: Respiratory Syncytial Virus Ce NEGATIVE (Negative); SARS-CoV-2 PCR NEGATIVE (Negative)
[2024-11-08 00:17] VITALS: BP 140/90; PULSE 107; RESP 18; TEMP 36.7; O2SAT 96
[2024-11-08 00:30] LABS: PCP Screen Urine Negative (Negative)
[2024-11-08 01:23] VITALS: BP 140/90; PULSE 107; RESP 18; TEMP 36.7; O2SAT 96
[2024-11-08 01:33] VITALS: BP 127/84; PULSE 121; RESP 19; TEMP 36.7; O2SAT 94
--- NOTE | 2024-11-08 03:08 | PC.ADMIT ---
[id number] Admission Note: The patient,Andrade Garrett,44 y/o, was given written information regarding hospital policies, unit procedures and contact persons. Patient's smoking status: unknown if ever smoked. Vital Signs - 8 hr 11/07/24 22:09 11/08/24 00:17 11/08/24 01:23 Temperature 98.0 F 98.0 F 98.0 F Pulse Rate 120 H 107 H 107 H Respiratory Rate 18 18 18 Blood Pressure 130/82 140/90 140/90 Pulse Oximetry 94 96 96 Oxygen Delivery Method Room Air Room Air 11/08/24 01:33 11/08/24 01:36 Temperature 98.0 F Pulse Rate 121 H Respiratory Rate 19 H Blood Pressure 127/84 Pulse Oximetry 94 Oxygen Delivery Method Room Air Room Air AB 44 y/o male presented to ER for 96 hour hold. He is alert to self and place only. His speech is mumbled. His thoughts are non linear. Several times during the assessment he appears to be trying to pick bugs off of the chair. His affect is bland. He is a poor historian with poor insight and judgment. Per affidavit patient has not slept in several days. He is hallucinating and holding conversations with people who are not there. Patient stated that he has been in a coma for 2 years and hasn't eaten in 4 years?. ?I just woke up here, a lot of stuff happened and put me in mental shock Patient endorses history of occasional glass of red wine. He denies nicotine use and illicit drug use. Patient has a PMH of alcoholism, pancreatitis, cannabis abuse, nicotine dependence, bipolar disorder with psychotic features. Patient verbalizes left ankle pain stating that he hit his ankle with a chain saw when he was cutting down a tree yesterday. Patient reports that his paternal grandfather was an alcoholic. His paternal grandmother was schizophrenic and his father was bipolar. He reports that his mother had ADD. Patient currently denies anxiety, depression, SI/HI and AVH. Patient does appear to be responding to visual stimuli. Patient was oriented to unit norms. All questions answered.
--- NOTE | 2024-11-08 04:36 | PC.NURSE ---
Patient continues to exhibit visual hallucinations. He came into the hallway and told this RN that he would like to go give them a hug and a kiss . Then states can I just go hold their hand. Patient thought family was in the nurses station and also outside running in the parking lot. Patient reoriented and given PRN medication for psychosis.
[2024-11-08 06:00] VITALS: BP 138/93; PULSE 103; RESP 21; TEMP 36.4; O2SAT 95
[2024-11-08] MEDS: diphenhydrAMINE 50 mg/mL SDV 1mL IM (08:20)
[2024-11-08] MEDS: haloperidol inj 5 mg/mL INJ 1 mL IM (08:20)
--- NOTE | 2024-11-08 11:23 | XRR_ITS ---
PROCEDURE INFORMATION: Exam: XR Left Ankle Exam date and time: 11/08/2024 5:13 PM Age: 44 years old Clinical indication: Ankle and foot; Left; Lt foot/ankle pain; No known injury TECHNIQUE: Imaging protocol: Radiologic exam of the left ankle. Views: 3 or more views. COMPARISON: CR XR foot LT min 3V* [id number] 11/08/2024 5:13 PM FINDINGS: Bones/joints: Normal. Soft tissues: Normal. XR/XR ankle LT min 3V* [id number] IMPRESSION: No acute findings.
--- NOTE | 2024-11-08 11:23 | XRR_ITS ---
PROCEDURE INFORMATION: Exam: XR Left Foot Exam date and time: 11/08/2024 5:13 PM Age: 44 years old Clinical indication: Ankle and foot; Left; Lt foot/ankle pain; No known injury TECHNIQUE: Imaging protocol: Radiologic exam of the left foot. Views: 3 or more views. COMPARISON: CR (LOW EXM, ) 11/08/2024 5:13 PM FINDINGS: Bones/joints: Normal. Soft tissues: Normal. XR/XR foot LT min 3V* [id number] IMPRESSION: No acute findings.
[2024-11-08 14:00] VITALS: BP 145/94; PULSE 104; RESP 17; O2SAT 96
--- NOTE | 2024-11-08 15:42 | PC.OT ---
Hold OT evaluation due to not being appropriate for therapy per nursing; will attempt again at later time.
--- NOTE | 2024-11-08 18:44 | W.PM.NPUH&PS ---
Providers/Chief Complaint Admitting Physician: Eliud Retana MD Primary Care Provider: Aurora Hines MD Chief Complaint: mhe HPI NPU History of Present Illness Andrdae Garrett is a 44 year old male who presented to the emergency department on a 96-hour hold with reports of active psychosis with the reporting that the patient had been having conversations with people that were not there and having been incoherent and making accusations to the 4 children while not having slept for several days. The patient was admitted to the neuropsychiatric unit for further evaluation and treatment. 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 The patient was an extremely poor historian as he appeared to be intrusive and unable to answer any questions in any clear fashion. The patient has a history of a recent diagnosis of acute pancreatitis and has a noted history of significant alcohol abuse. The patient had allegedly been noncompliant with his prescription medications and had last been seen by the outpatient psychiatric team approximately 4 months ago. The patient had been recently hospitalized 2 years ago on the neuropsychiatric unit. Inpatient psychiatric history: Patient had 1 previous inpatient psychiatric hospitalization in March 2023. Outpatient psychiatric history: followed by [facility] with Diagnosis of bipolar I disorder and alcohol dependence. Previous history of ADHD as well. Substance abuse history: The patient has a history of nicotine use. He had reported a history of significant alcohol abuse with unclear history of any treatment for alcohol dependence and unclear history of history of alcohol related withdrawal symptoms. Records that indicated that the patient had a half a pint daily use of alcohol for several years and allegedly stopped after being hospitalized in September for pancreatitis. Medical history: History of chronic kidney disease, history of peripheral neuropathy, history of BPH, lumbar stenosis, hypertension, history of DVT, history of alcoholic pancreatitis, history of pulmonary embolism, history of diverticulosis, history of spinal fracture, Surgical history: Right arthroscopic knee surgery Medications: Eliquis 5 mg twice a day, Augmentin 1 tablet twice a day, aspirin 81 mg daily, baclofen 20 mg daily, risperidone 2 mg twice a day, Cogentin 0.5 mg twice a day, Klonopin 1 mg at night, folic acid 1 mg daily, gabapentin 300 mg 3 times a day Family psychiatric history: History of early onset dementia, sister and grandfather have a history of schizophrenia, his father and his brother were diagnosed with bipolar disorder Social history: Patient had denied any history of trauma. He was an excellent student graduated high school and at earned a bachelor's degree in biology. He has 4 children and currently lives with his . He reports that his patients are . Excerpt from NPU Discharge summary from 03/28/2023 Discharge Diagnosis (1) Paranoid: Status: Acute (2) Smoker unmotivated to quit: Status: Acute (3) ADHD, adult residual type: Status: Acute (4) Helene: Status: Acute (5) Psychosis: Status: Acute Reason for Visit 96 hr hold Brief History: History of Present Illness Andrade Garrett is a 42 year old male who presented to the emergency department with the following report: Chief Complaint: Psychiatric Symptoms Stated Complaint: 96 hr hold Time Seen by Provider: 03/23/23 00:10 History of Present Illness: 42-year-old male presents to the emergency department under 96-hour hold with [facility]. They have a statement from the patient's stating that she feels like he is having hallucinations and paranoid type behavior. She states he is hiding cameras all around the property as he thinks that she is cheating on him and smoking methamphetamine. The patient states that his is saying all of this because he told her he wanted a divorce and that she is using methamphetamine. He denies SI or HI. He states that he is convinced that his is cheating on him and appears to be gaslighting everyone and attempts to turn them against him. He states that he has asked his daughters about strange men that have been in their house and the older daughter has told the younger daughter not to say anything. He states that he did drink some alcohol this evening and attempt to ease his stress. He states that he is concerned that people specifically men are coming to his house when he is not there or sneaking onto his property to be with his . Associated symptoms: Deny homicidal ideation or suicidal ideation He was admitted to the neuropsychiatric unit for definitive treatment of those issues. He presents today unknown to the inpatient unit reporting that he has never been psychiatrically hospitalized nor has he had any longstanding mental health treatment. He started telling a very long-winded very convoluted story of his seeming suspicious to a level that he ended up putting cameras in the home and then reported that what he discovered was that she would masturbate and possibly watch pornography during which she said constituted a departure from their agreed-upon behaviors. He later identified that it was okay for her to masturbate but that he was not sure if she should watch for longer fever from a spiritual standpoint and went on a long story about how they should create their own pornography for themselves only. He reports that then he took the cameras down and was not able to watch her but then there were a couple of mornings where he went And was pretty sure there was a man in the house but could not explain why that would be a reasonable time to try to have someone in there given that they sleep in the bed together. He seemed open to the possibility that this was hallucinating but then would return back to that same subject and similar accusations about her and possible infidelity that was based on something he noted very well could not have been real. His speech was quite pressured and it was hard to interject questions as he went along. He reported being diagnosed with ADHD in denies taking his Adderall ER 40 mg in any way other than it is prescribed. He was a fairly poor historian and was very focused on these beliefs that seemed questionable even as he spoke to him. We discussed concerns that he was having heleen especially with his reports of poor sleep and going several days without sleeping. We discussed the possibility of bipolar disorder. We discussed the risks, benefits and alternatives of a trial of Abilify and he understood and agreed to proceed as is documented in this note. 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 We agreed we could work with his significant other to be able to bring something here to allow him to possibly do the payroll but that given the current information we were agreeable that concerns for safety with his possibly manic presentation existed and we had no plans of overturning the 96-hour hold. Per his 03/22/2023 crisis documentation: [facility] Contact Form Date Opened: 03/22/23 Time Opened: 10:08 Caller Information Person in Crisis Name:: Andrade Garrett Person in Crisis Phone:: Person in Crisis Address:: [address] [place] [address] [address] [id number] Caller Name if different from person in crisis: Beba Gerry Caller Relationship to Client:: Caller Phone:: C-SSRS Able to complete C-SSRS?: No (No client contact) Demographics Race/Ethnicity: White (non-) Gender: Male Sexual Orientation/Identity: Heterosexual Age: 35-44 Status: /Active Intellectual Disability: Unknown Client Call Information Primary problem of call:: Acute Mental Health Crisis Is person in crisis currently taking any medications?: Unknown Does person in crisis currently use alcohol or drugs?: Unknown Does person in crisis have any known medical conditions?: Unknown Intervention: Referred for a Mobile Crisis Response Mobile Crisis Response Location:: Facility Facility: [facility] Office Intervention:: Assisted with Admission to Inpatient Psychiatric Care Was mobile crisis response initiated by [facility]?: No Final Disposition Supports Utilized:: Support/opportunity to ventilate, Options for treatment, Promote hope, Validation, Encouragement and Supportive listening Actions taken narrative:: 03/22/23 [facility] met with Beba at the [facility] office. Beba reports that Andrade was in a manic state again this morning and was accusing her of having another man in the bed with them. Beba reports it has been very traumatic for the past 10 1/2 weeks since Andrade had a mental break. Beba reports that things are mostly the same as when she last had contact with [facility] and reports that Andrade is not sleeping and will stay up for up to 4 days at a time then fall asleep for a few hour but often wakes up in full blown panic. Beba also reports that Andrade has not been eating though he does continue to drink alcohol. Beba was unsure if Andrade is using substance other than alcohol. Beba reports that Andrade has cameras all over the house to catch her cheating on him and is obsessed with the camera footage. Beba reports that Andrade now believes that she is hiding a man in the house, in varying places; roof, mattress, hedrick, in bed with them, etc. I assisted Beba with completed 96 hour hold paperwork for Andrade. I let Beba know that [facility] would contact Beba once a decision had been made by the pet ambassador. 1140 I faxed the hold paperwork to the [facility]. 1141 [facility] contacted Kenyetta at the [facility] and let her know the fax at been sent and requested a callback once a decision has been made. 1300 [facility] contacted Kenyetta to learn the disposition. Kenyetta stated it had been approved. 1303 [facility] made contact with Beba and let her know that the hold had been approved. 03/10/23 901 [facility] received a called from Andrade's Beba. Beba reports that for the past 8 weeks Andrade has been manic and depressive. Beba also reports that Lucina is seeing and hearing things that are not real and has been accusing her of many things. Beba reports that Andrade lost his father 2 years ago when a drunk chair car driver hit him and that it has been hard on the entire family. Beba reports that Andrade had quit drinking but recently has started again and has been hiding it from her until he just revealed bottles he has tried to hide away. I explained that is Andrade was willing to go to the hospital he could be evaluated to determine if he is in need of inpatient treatment but if he is unwilling then 96 hour hold paperwork would need to be completed to get him to the hospital and evaluated. Beba stated is going to talk to her waste water or water plant operator and may come to [facility] afterwards to complete the paperwork. I encouraged Beba to contact [facility]/8 as needed.Client Response to Intervention:: thank you Final Disposition:: 96 hour hold paperwork was completed and approved Hospital Course Hospital Course During the hospitalization, the patient had routine laboratory studies which were within normal limits except for a few outliers.? Additionally, there was a general medical evaluation which was also within normal limits and revealed no new acute processes.? At the time of discharge, lethality was denied and psychosis was resolving.? Mood and anxiety were well managed.? The patient endorsed a plan to avoid all drugs of abuse and follow up with the aftercare recommendations of the treatment team.? The patient was evaluated and deemed to be absent credible lethality and had achieved the maximum benefit from an inpatient hospitalization, and so was discharged.? The patient was started on Abilify with noted improvement in regards to paranoia. It was felt that the patient's Adderall dose combined with the patient's problem with Chronic Kidney Disease had delayed metabolism and increased blood levels of amphetamine well beyond therapeutic range and resulted in several of patient's psychiatric symptoms including increased anxiety, paranoia, hallucinations, insomnia that all appeared to dissipate after discontinuation of adderall here in the hospital. Meds NPU Home Medications ?Medication ?Instructions ?Recorded ?Confirmed ?Last Taken ?Type baclofen 20 mg tablet 20 mg PO DAILY #30 tabs 03/31/24 10/29/24 Unknown Rx diazepam 10 mg tablet 10 mg PO ONCE PRN anxiety #1 tab 06/18/24 10/29/24 Unknown Rx tadalafil 20 mg tablet See Rx Instructions .Route 07/19/24 10/29/24 Unknown Rx .COMPLEX #30 tabs aspirin 81 mg chewable tablet 81 mg PO DAILY #100 tabs 08/06/24 10/29/24 Unknown Rx doxycycline hyclate 100 mg capsule 100 mg PO BID 10 days #20 caps 08/06/24 10/29/24 Unknown Rx losartan 25 mg tablet 25 mg PO DAILY blood pressure #90 08/06/24 10/29/24 Unknown Rx tabs apixaban 5 mg tablet 5 mg PO BID 10/07/24 10/29/24 Unknown History folic acid 1 mg tablet 1 mg PO DAILY 10/07/24 10/29/24 Unknown History hydromorphone 2 mg tablet 2 mg PO Q6H 10/07/24 10/29/24 Unknown History hydroxyzine HCl 25 mg tablet 25 mg PO QID PRN 10/07/24 10/29/24 Unknown History jzovnz-mxxnzbnw-hdlsrdu 2 cap PO TID 10/07/24 10/29/24 Unknown History 36,000-114,000-180,000 unit capsule,delay rel (Creon) multivitamin-ferrous 1 tab PO DAILY 10/07/24 10/29/24 Unknown History fumarate-folic acid 18 mg-400 mcg tablet (Daily Multivitamin with Iron) pantoprazole 40 mg tablet,delayed 40 mg PO DAILY 10/07/24 10/29/24 Unknown History release risperidone 4 mg tablet 4 mg PO BID 10/07/24 10/29/24 Unknown History thiamine mononitrate (vit B1) 100 100 mg PO DAILY 10/07/24 10/29/24 Unknown History mg tablet gabapentin 300 mg capsule 300 mg PO 3XD #90 caps 10/08/24 10/29/24 Unknown Rx (Neurontin) cyclobenzaprine 7.5 mg tablet 7.5 mg PO TID 30 days #90 tabs 10/24/24 10/29/24 Unknown Rx benztropine 0.5 mg tablet 0.5 mg PO BID PRN EPS #60 tabs 10/28/24 10/29/24 Unknown Rx prednisone 20 mg tablet 20 mg PO DAILY #15 tabs 10/29/24 10/29/24 Unknown Rx clonazepam 1 mg tablet 1 mg PO .HS #30 tabs 11/04/24 Unknown Rx amoxicillin 875 mg-potassium 1 tab PO BID #20 tabs 11/06/24 Unknown Rx clavulanate 125 mg tablet azelastine 205.5 mcg (0.15 %) 205.5 mcg (0.137 mL) intranasal 11/06/24 Unknown Rx nasal spray (Astepro Allergy) BID #30 mL fluticasone propionate 50 2 spray intranasal Q12H #16 grams 11/06/24 Unknown Rx mcg/actuation nasal spray,suspension (Flonase Allergy Relief) Allergies Allergy/AdvReac Type Severity Reaction Status Date / Time ciprofloxacin (From Cipro) Allergy Severe ALGY-Swell Verified 11/05/24 23:18 Lip/Tongue/Throat PFSH NPU PFS: Medical History (Updated 11/08/24 @ 00:36 by Marine Triplett MD) Alcoholic pancreatitis hospitalized September 2024 at [facility] Deep vein thrombosis (DVT) of right lower extremity 11.5.24 provoked--after an injury; now on asa 4.29.25 Hypertension, essential atenolol, lisinopril, propranolol didn't work; tadalafil daily has really worked On combination antipsychotic drug therapy Cannabis abuse Nicotine dependence, chewing tobacco, uncomplicated Bipolar disorder with psychotic features BPH loc w urin obs/LUTS Psychiatric care Insomnia disorder 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 Smoker unmotivated to quit ADHD, adult residual type Diverticulosis CKD (chronic kidney disease) stage 2, GFR 60-89 ml/min History of spinal fracture L2 level in 2000 Peripheral neuropathic pain ADD (attention deficit disorder) Crohn disease says he was dxed in [place], colonoscopy 2018 Surgical History History of arthroscopic knee surgery right knee Family History Mother Bone disease Aplastic anemia Father Psychiatric illness Schizophrenia/ Bipolar Social History Smoking and tobacco/nicotine status: unknown if used tobacco/nicotine Quit status (tobacco/nicotine): has quit using Year quit tobacco: 2011 Alcohol intake: former Year of sobriety/quit date alcohol: 2024 Former alcohol use details: 04/11 pint daily until 09/2024--hospitalized for pancreatitis, now stopped Substance/Drug Use: never Caregiver/support person: No Lives independently: Yes Household members: spouse Marital status: Number of children: 4 Highest education level completed: Bachelor's Degree service: Yes Current occupational status: employed 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 He was pacing the hallways, intrusive and was not redirectable. No abnormal involuntary motor movements except for psychomotor agitation. He was minimally cooperative with exam in moderate distress. Speech was increased rate and diminished in volume with considerable dysarthria. His speech was unintelligible. Mood was reported as okay. Affect was odd and subdued. Thought process: nonlinear, tangential, flight of ideas nearly. Thought content: Patient denied suicidal or homicidal ideation. There were no delusions reported He appeared to be responding to internal stimuli, and spoke of formication. Attention and concentration were limited memory appeared unreliable but none were formally tested. He was alert to person and place. Insight, judgment and impulse control are impaired. Vitals/I&O/Wt Last Vital Signs Temp 97.6 F 11/08/24 06:00 Pulse 104 H 11/08/24 14:00 Resp 17 11/08/24 14:00 BP 145/94 11/08/24 14:00 Pulse Ox 96 11/08/24 14:00 O2 Del Method Room Air 11/08/24 06:00 Weight last 48 hrs Weight 83.915 kg Data NPU 11/07/24 22:19 11/07/24 22:19 A&P Assessment and plan 1. Bipolar disorder with psychotic features: 2. Paranoid: 3. Psychosis: 4. Alcohol abuse: 5. Helene: Plan: This is a 44-year-old white male with history of Bipolar I disorder with psychosis along with alcohol dependence involuntarily hospitalized with increased confusion, disorganized behavior, diminished sleep for several days. 1.? Restart outpatient medications other than switch to Invega 6mg at night and discontinue risperidone. X-ray completed today of leg with patient reporting fall from tree and ankle pain. 2.? Encourage individual, group, and milieu therapy. 3.? Patient requiring one-to-one due to intrusive behavior. 4.? Recommend sober living treatment at the highest level of care to which the patient is willing to commit. 5. Will attempt to gather collateral information. PDMP PDMP Reviewed: Not Reviewed Involuntary Hold Information Hold Status: Legal Status: 96 Hour Hold Date/Time Hold Expires: 11/13/24 @ 21:57 96 Hour Hold: 96 Hour Involuntary Admission: Yes Attestations NPU Medical Necessity Statement*: Inpatient hospitalization is medically necessary and deemed to be the clinically appropriate intervention at this time. Medications will be adjusted and initiated as indicated.? The patient will be hospitalized for at least 2 midnights.? The patient?s likely length of stay is 4-6 days Coding Level of Care Code Acute Code for [facility] Fwd Diagnoses Bipolar disorder with psychotic features F31.9 Paranoid F22 Psychosis F29 Alcohol abuse F10.10 Helene F30.9
--- NOTE | 2024-11-08 19:08 | PC.NURSE ---
Attempt to contact patient Beba by phone to reconcile patient medication and ask for her to bring patients home medication. Left message on voicemail to return call.
[2024-11-08 20:33] VITALS: BP 152/104; PULSE 107; RESP 16; TEMP 37.1; O2SAT 97
[2024-11-08] MEDS: paliperidone ER 6 mg Tablet PO (20:33)
[2024-11-08] MEDS: fluticasone nasal spray 16gm Btl 2 SPRAY INTRANASAL (20:33)
[2024-11-09 06:00] VITALS: BP 129/80; PULSE 91; RESP 18; TEMP 36.6; O2SAT 99
--- NOTE | 2024-11-09 06:37 | PC.NURSE ---
Reconciled patients medications with his spouse. verbalized that patient has been drinking hard alcohol for the last two weeks. is going to bring patients creon in from home around 10 am.
[2024-11-09] MEDS: multivitamin therapeutic Tablet 1 TAB PO (07:55)
--- NOTE | 2024-11-09 10:57 | PC.NURSE ---
Pt.'s brought in a bottle of Jolly DR 36,000 units. Instructions are to take 2 capsules PO TID.
--- NOTE | 2024-11-09 11:07 | PC.NURSE ---
Pt. asked signee to look into the sing. Pt. had coughed up something stated he had a parasite lay eggs in his mouth he thought they had went away, but apparently not. Pt. said look you can see the legs on that one . Pt. said he can feel them hatching in his mouth and crawling up into his eye sockets. Signee looked at what was in the sink and pt. was eating a granola bar and the piece in the sink looked like an oat.
[2024-11-09 14:00] VITALS: BP 125/85; PULSE 113; RESP 17; TEMP 36.6; O2SAT 95
--- NOTE | 2024-11-09 14:24 | P.NPUPN_ITS ---
Subjective NPU 2 Subjective: 42-year-old male who admitted with paranoia and psychosis along with increased marva and anxiety. The patient was reporting feeling better today. He had continued to report this morning earlier that he felt that he had thrown up bugs inside of him. The patient had stated that he had drank a significant amount of alcohol 4 days ago after previously being hospitalized for treatment of alcohol related withdrawal symptoms earlier in September. Furthermore, the patient had endorsed that he had stopped taking his risperidone approximately 1 week ago with significant adverse consequences. He had reported that he felt better after receiving Invega earlier and reported that he had slept better. Patient had been less intrusive and reported that he would be willing to consider a medication that he would take once a month to help with his manic symptoms. He had reported that his thoughts continued to move quickly. He had denied any depression at this time. He had intimated that he felt that he saw a man in his home prior to arriving here and stated that he had felt that the man in the house was secretly having an affair with his . The patient remained on one-to-one at this time. Mental Status Exam 2 MSE Comments: This is a well-nourished, well-developed white male in hospital scrubs with poor grooming and fair eye contact. He was sitting in his room on his bed and calm. No abnormal involuntary motor movements other than mild psychomotor activation. He was cooperative with exam in mild distress. Speech was normal rate and volume with less dysarthria noted. Mood was reported as better. Affect was odd and subdued. Thought process: linear and logical. Thought content: Patient denied suicidal or homicidal ideation. There was some paranoia noted. He did not appear to be responding to internal stimuli, but spoke of vomiting up bugs. Attention and concentration were limited His memory appeared reliable. He was alert to person and place. Insight was poor. His judgment and impulse control are impaired. Vitals/I&O/Wt Last Vital Signs Temp 97.9 F 11/09/24 06:00 Pulse 91 11/09/24 06:00 Resp 18 11/09/24 06:00 BP 129/80 11/09/24 06:00 Pulse Ox 99 11/09/24 06:00 O2 Del Method Room Air 11/09/24 06:00 Weight last 48 hrs Weight 83.915 kg Data NPU 11/07/24 22:19 11/07/24 22:19 A&P Assessment and plan 1. Bipolar disorder with psychotic features: 2. Paranoid: 3. Psychosis: 4. Alcohol abuse: 5. Marva: Plan: This is a 44-year-old white male with history of Bipolar I disorder with psychosis along with alcohol dependence involuntarily hospitalized with increased confusion, disorganized behavior, diminished sleep for several days. 1.? Continue invega oral 6mg daily and klonopin 1mg at night. Patient good candidate for invega im sustenna injection. 2.? Encourage individual, group, and milieu therapy. 3.? Patient requiring one-to-one due to intrusive behavior. 4.? Recommend sober living treatment at the highest level of care to which the patient is willing to commit. 5. Will attempt to gather collateral information. PDMP PDMP Reviewed: Not Reviewed Involuntary Hold Information 2 Hold Status: Legal Status: 96 Hour Hold Date/Time Hold Expires: 11/13/24 @ 21:57 96 Hour Hold: 96 Hour Involuntary Admission: Yes Attestations NPU 2 Medical Necessity Statement*: Inpatient hospitalization is medically necessary and deemed to be the clinically appropriate intervention at this time. Medications will be adjusted and initiated as indicated.? The patient?s likely length of stay is 4-6 days Coding Level of Care Code Acute Code for Chg Fwd Diagnoses Bipolar disorder with psychotic features F31.9 Paranoid F22 Psychosis F29 Alcohol abuse F10.10 Marva F30.9
[2024-11-09 20:04] VITALS: BP 129/83; PULSE 93; RESP 18; TEMP 36.6; O2SAT 99
[2024-11-09] MEDS: paliperidone ER 6 mg Tablet PO (20:27)
[2024-11-09] MEDS: fluticasone nasal spray 16gm Btl 2 SPRAY INTRANASAL (20:27)
[2024-11-10 06:00] VITALS: BP 115/74; PULSE 81; RESP 18; TEMP 36.7; O2SAT 98
[2024-11-10] MEDS: fluticasone nasal spray 16gm Btl 2 SPRAY INTRANASAL ×2 (07:25→19:39)
--- NOTE | 2024-11-10 08:15 | NUR.SHIFT ---
Pt states that he slept pretty solid last night. He is currently denying any anxiety or depression, but states that it slowly creeps up on him in the day. He states that his anxiety really increases at night. He denies HI, but states that he has passive SI and it's more just he thinks his family would be better off without him. He denies having any hallucinations today. He rates his back pain a 8/10 and states that he will just take his gabapentin. His speech is quite rapid and he talks about his Beba a lot and her telling him that he needs to just go away and find some place else to be. He states that she is the reason he is in here as she has figured out how to use the system to get him locked up. He is calm and cooperative on assessment.
[2024-11-10] MEDS: multivitamin therapeutic Tablet 1 TAB PO (08:36)
[2024-11-10] MEDS: paliperidone ER 6 mg Tablet PO (08:36)
--- NOTE | 2024-11-10 12:56 | P.NPUPN_ITS ---
Subjective NPU 2 Subjective: 42-year-old male who admitted with paranoia and psychosis along with increased marva and anxiety. The patient had reported that he was feeling better. He had still continued to report that his had been engaged in inappropriate behavior and expressed suspicion towards her intentions as he had stated that she had made threats to him about being able to see the children. The patient had been redirectable here on the milieu. He did not require any as needed medications. He had stated that he would be willing to consider taking a monthly medication to keep him stable. He had stated that he did not feel depressed. He had reported no side effects from his medication regimen currently. He had reported improved sleep last night. He reported having no problems with kidney function currently. Mental Status Exam 2 MSE Comments: This is a well-nourished, well-developed white male in hospital scrubs with improved grooming and fair eye contact. He was sitting in his room on his bed and calm. No abnormal involuntary motor movements other than mild psychomotor activation. He was cooperative with exam in mild distress. Speech was normal rate and volume with less dysarthria noted but still present. Mood was reported as good. Affect was slightly euphoric. Thought process was mostly linear and logical. No derailment. Thought content: Patient denied suicidal or homicidal ideation. There was some paranoia noted. He did not appear to be responding to internal stimuli. Attention and concentration were limited. His recent and remote memory were grossly intact. He was alert and oriented to person, place, year and month, but not date or day of week. Insight was poor. His judgment and impulse control are poor. Vitals/I&O/Wt Last Vital Signs Temp 98.1 F 11/10/24 06:00 Pulse 81 11/10/24 06:00 Resp 18 11/10/24 06:00 BP 115/74 11/10/24 06:00 Pulse Ox 98 11/10/24 06:00 O2 Del Method Room Air 11/10/24 06:00 Weight last 48 hrs Weight 85.275 kg Data NPU 11/07/24 22:19 11/07/24 22:19 A&P Assessment and plan 1. Bipolar disorder with psychotic features: 2. Paranoid: 3. Psychosis: 4. Alcohol abuse: 5. Marva: Plan: This is a 44-year-old white male with history of Bipolar I disorder with psychosis along with alcohol dependence involuntarily hospitalized with increased confusion, disorganized behavior, diminished sleep for several days. 1.? Continue invega oral 6mg daily and klonopin 1mg at night. Invega sustenna 234mg IM to be given today if available. 2.? Encourage individual, group, and milieu therapy. 3.? Patient requiring one-to-one due to intrusive behavior. 4.? Recommend sober living treatment at the highest level of care to which the patient is willing to commit. 5. Will attempt to gather collateral information. PDMP PDMP Reviewed: Not Reviewed Involuntary Hold Information 2 Hold Status: Legal Status: 96 Hour Hold Date/Time Hold Expires: 11/13/24 @ 21:57 96 Hour Hold: 96 Hour Involuntary Admission: Yes Attestations NPU 2 Medical Necessity Statement*: Inpatient hospitalization is medically necessary and deemed to be the clinically appropriate intervention at this time. Medications will be adjusted and initiated as indicated.? The patient?s likely length of stay is 4-6 days. Coding Level of Care Code Acute Code for Chg Fwd Diagnoses Bipolar disorder with psychotic features F31.9 Paranoid F22 Psychosis F29 Alcohol abuse F10.10 Marva F30.9
[2024-11-10 14:00] VITALS: BP 128/88; PULSE 116; RESP 17; O2SAT 98
[2024-11-10] MEDS: paliperidone palmitate 234 mg Syringe IM (16:05)
[2024-11-10 20:27] VITALS: BP 149/98; PULSE 103; RESP 16; TEMP 36.6; O2SAT 98
--- NOTE | 2024-11-10 21:08 | PC.NURSE ---
Pt removed nicotine patch @ 1845, may have a piece of joanne gum in 2 hours.
--- NOTE | 2024-11-10 21:30 | PC.NURSE ---
pt questions pt has questions about his home medications. pt states he takes more gabapentin that prescribed. and he has other meds that aren't ordered. this nurse explained to pt he hasn't received those meds since he has been here and I will discuss with dayshift in the AM.
--- NOTE | 2024-11-11 06:13 | PC.NURSE ---
pt contacts pt states he no longer wants his to have information about his care.
[2024-11-11 06:45] VITALS: BP 105/68; PULSE 92; RESP 16; TEMP 36.6; O2SAT 99
[2024-11-11] MEDS: fluticasone nasal spray 16gm Btl 2 SPRAY INTRANASAL ×2 (07:15→20:56)
[2024-11-11] MEDS: paliperidone ER 6 mg Tablet PO (08:49)
[2024-11-11] MEDS: multivitamin therapeutic Tablet 1 TAB PO (08:50)
--- NOTE | 2024-11-11 13:28 | P.NPUPN_ITS ---
Subjective NPU 2 Subjective: 42-year-old male who admitted with paranoia and psychosis along with increased marva and anxiety. The patient had reported some pain issues in his back. He was more redirectable. He had reported that he was upset as his had stated that she wanted to have a divorce. Patient had continued to report significant problems in his relationship. He had admitted that he had become increasingly confused with the discontinuation of Risperdal but stated that he was feeling better. He had reported adequate sleep. He was redirectable and was able to attend groups. He had reported having problems with focus and reported that his thoughts were moving slower. He had reported no side effects from the Invega oral at this time. Patient had been given the Invega Sustenna 234 mg yesterday. 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 Mental Status Exam 2 MSE Comments: This is a well-nourished, well-developed white male in hospital scrubs with improved grooming and fair eye contact. He was sitting in his room on his bed and calm. No abnormal involuntary motor movements other than increased psychomotor activity. He was cooperative with exam in mild distress. Speech was normal rate and volume with no dysarthria present. Mood was described as better. Affect was slightly irritable. Thought process was mostly linear and logical. No derailment noted. Thought content: Patient denied suicidal or homicidal ideation. There was less overt paranoia. He did not appear to be responding to internal stimuli. Attention and concentration were limited. His recent and remote memory were grossly intact. He was alert and oriented to person, place, and time today. Insight was limited. His judgment was improving. His impulse control appeared better. Vitals/I&O/Wt Last Vital Signs Temp 97.9 F 11/11/24 06:45 Pulse 92 11/11/24 06:45 Resp 16 11/11/24 06:45 BP 105/68 11/11/24 06:45 Pulse Ox 99 11/11/24 06:45 O2 Del Method Room Air 11/11/24 06:45 Weight last 48 hrs Weight 85.275 kg Data NPU 11/07/24 22:19 11/07/24 22:19 A&P Assessment and plan 1. Bipolar disorder with psychotic features: 2. Paranoid: 3. Psychosis: 4. Alcohol abuse: 5. Marva: Plan: This is a 44-year-old white male with history of Bipolar I disorder with psychosis along with alcohol dependence involuntarily hospitalized with increased confusion, disorganized behavior, diminished sleep for several days. 1.? Continue invega oral 6mg daily and klonopin 1mg at night. Invega sustenna 234mg IM given on 11/10/24. 2.? Encourage individual, group, and milieu therapy. 3. Next IM invega sustenna due as early as 11/14/24.? 4.? Recommend sober living treatment at the highest level of care to which the patient is willing to commit. 5. Will attempt to gather collateral information. PDMP PDMP Reviewed: Not Reviewed Involuntary Hold Information 2 Hold Status: Legal Status: 96 Hour Hold Date/Time Hold Expires: 11/13/24 @ 21:57 96 Hour Hold: 96 Hour Involuntary Admission: Yes Attestations NPU 2 Medical Necessity Statement*: Inpatient hospitalization is medically necessary and deemed to be the clinically appropriate intervention at this time. Medications will be adjusted and initiated as indicated.? The patient?s likely length of stay is 4-6 days. Coding Level of Care Code Acute Code for Chg Fwd Diagnoses Bipolar disorder with psychotic features F31.9 Paranoid F22 Psychosis F29 Alcohol abuse F10.10 Marva F30.9
[2024-11-11 14:00] VITALS: BP 130/81; PULSE 99; RESP 18; TEMP 37.1; O2SAT 97
[2024-11-11 19:14] VITALS: BP 136/98; PULSE 100; RESP 19; TEMP 36.5; O2SAT 97
--- NOTE | 2024-11-11 22:11 | PC.NURSE ---
During 0 rounds patient found standing in his room. 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 Patient affect is anxious and irritable at times. Given PRN lorazepam 2 mg po for this.
[2024-11-12 06:00] VITALS: RESP 16
--- NOTE | 2024-11-12 06:25 | PC.NURSE ---
vitals not done
[2024-11-12] MEDS: fluticasone nasal spray 16gm Btl 2 SPRAY INTRANASAL ×2 (07:14→20:19)
[2024-11-12] MEDS: paliperidone ER 6 mg Tablet PO (09:06)
[2024-11-12] MEDS: multivitamin therapeutic Tablet 1 TAB PO (09:06)
[2024-11-12 14:00] VITALS: BP 129/87; PULSE 109; RESP 18; TEMP 36.6; O2SAT 96
--- NOTE | 2024-11-12 14:37 | P.NPUPN_ITS ---
Subjective NPU 2 Subjective: 42-year-old male who admitted with paranoia and psychosis along with increased marva and anxiety. The patient had continued to report feeling better. He had reported that he was feeling calmer and reported no side effects. He continued to have brief periods where he appeared intense and extremely talkative but had been able to be redirected. He had minimized any racing thoughts at this time. He had expressed concern regarding his alcohol use and reported that he understood that he needed to take his antipsychotic medication to avoid a relapse in regards to marva. He had denied any depression at this time. Mental Status Exam 2 MSE Comments: This is a well-nourished, well-developed white male in hospital scrubs with improved grooming and fair eye contact. He was pacing in the hallway but was redirectable. No abnormal involuntary motor movements other than increased psychomotor activity. He was cooperative with exam in mild distress. Speech was normal rate and volume with no dysarthria present. Mood was described as okay. Affect was less irritable. Thought process was mostly linear and logical. No derailment noted. Thought content: Patient denied suicidal or homicidal ideation. There was less overt paranoia. He did not appear to be responding to internal stimuli. Attention and concentration were limited. His recent and remote memory were grossly intact. He was alert and oriented to person, place, and time today. Insight was limited. His judgment was improving. His impulse control appeared better. Vitals/I&O/Wt Last Vital Signs Temp 97.7 F 11/11/24 19:14 Pulse 100 11/11/24 19:14 Resp 16 11/12/24 06:00 BP 136/98 11/11/24 19:14 Pulse Ox 97 11/11/24 19:14 O2 Del Method Room Air 11/11/24 14:00 Data NPU 11/07/24 22:19 11/07/24 22:19 A&P Assessment and plan 1. Bipolar disorder with psychotic features: 2. Paranoid: 3. Psychosis: 4. Alcohol abuse: 5. Marva: Plan: This is a 44-year-old white male with history of Bipolar I disorder with psychosis along with alcohol dependence involuntarily hospitalized with increased confusion, disorganized behavior, diminished sleep for several days. 1.? Continue invega oral 6mg daily and klonopin 1mg at night. Invega sustenna 234mg IM given on 11/10/24. Invega 156mg IM given on 11/13/24. 2.? Encourage individual, group, and milieu therapy. ??? 3.? Recommend sober living treatment at the highest level of care to which the patient is willing to commit. 4. Will attempt to gather collateral information. PDMP PDMP Reviewed: Not Reviewed Involuntary Hold Information 2 Hold Status: Legal Status: 96 Hour Hold Date/Time Hold Expires: 11/13/24 @ 21:57 96 Hour Hold: 96 Hour Involuntary Admission: Yes Attestations NPU 2 Medical Necessity Statement*: Inpatient hospitalization is medically necessary and deemed to be the clinically appropriate intervention at this time. Medications will be adjusted and initiated as indicated.? The patient?s likely length of stay is 2-3 days. Coding Level of Care Code Acute Code for Chg Fwd Diagnoses Bipolar disorder with psychotic features F31.9 Paranoid F22 Psychosis F29 Alcohol abuse F10.10 Marva F30.9
--- NOTE | 2024-11-12 19:00 | PC.NURSE ---
pt ankle pt states he fell off a ladder approx 14 feet the day before he arrived here. states his left ankle is swollen and 3/10 pain until he steps on it incorrectly and its a 7/10.
[2024-11-12 19:41] VITALS: BP 131/84; PULSE 100; RESP 18; TEMP 36.7; O2SAT 95
[2024-11-13 06:00] VITALS: BP 123/73; PULSE 84; RESP 16; TEMP 36.8; O2SAT 99
[2024-11-13] MEDS: paliperidone ER 6 mg Tablet PO (08:29)
[2024-11-13] MEDS: multivitamin therapeutic Tablet 1 TAB PO (08:29)
[2024-11-13] MEDS: cetylpyridinium Lozenge 1 EACH MUCOUS MEM (10:39)
--- NOTE | 2024-11-13 12:02 | P.NPUDS_ITS ---
Diagnoses at Discharge Discharge Diagnosis 1. Bipolar disorder with psychotic features: 2. Paranoid: 3. Psychosis: 4. Alcohol abuse: 5. Helene: Reason for Visit Reason for Visit: mhe Brief History: History of Present Illness Andrade Garrett is a 44 year old male who presented to the emergency department on a 96-hour hold with reports of active psychosis with the reporting that the patient had been having conversations with people that were not there and having been incoherent and making accusations to the 4 children while not having slept for several days. The patient was admitted to the neuropsychiatric unit for further evaluation and treatment. 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 The patient was an extremely poor historian as he appeared to be intrusive and unable to answer any questions in any clear fashion. The patient has a history of a recent diagnosis of acute pancreatitis and has a noted history of significant alcohol abuse. The patient had allegedly been noncompliant with his prescription medications and had last been seen by the outpatient psychiatric team approximately 4 months ago. The patient had been recently hospitalized 2 years ago on the neuropsychiatric unit. Inpatient psychiatric history: Patient had 1 previous inpatient psychiatric hospitalization in March 2023. Outpatient psychiatric history: followed by [facility] with Diagnosis of bipolar I disorder and alcohol dependence. Previous history of ADHD as well. Substance abuse history: The patient has a history of nicotine use. He had reported a history of significant alcohol abuse with unclear history of any treatment for alcohol dependence and unclear history of history of alcohol related withdrawal symptoms. Records that indicated that the patient had a half a pint daily use of alcohol for several years and allegedly stopped after being hospitalized in September for pancreatitis. Medical history: History of chronic kidney disease, history of peripheral neur opathy, history of BPH, lumbar stenosis, hypertension, history of DVT, history of alcoholic pancreatitis, history of pulmonary embolism, history of diverticulosis, history of spinal fracture, Surgical history: Right arthroscopic knee surgery Medications: Eliquis 5 mg twice a day, Augmentin 1 tablet twice a day, aspirin 81 mg daily, baclofen 20 mg daily, risperidone 2 mg twice a day, Cogentin 0.5 mg twice a day, Klonopin 1 mg at night, folic acid 1 mg daily, gabapentin 300 mg 3 times a day Family psychiatric history: History of early onset dementia, sister and grandfather have a history of schizophrenia, his father and his brother were diagnosed with bipolar disorder Social history: Patient had denied any history of trauma. He was an excellent student graduated high school and at earned a bachelor's degree in biology. He has 4 children and currently lives with his . He reports that his patients are . Excerpt from NPU Discharge summary from 03/28/2023 Discharge Diagnosis (1) Paranoid: Status: Acute (2) Smoker unmotivated to quit: Status: Acute (3) ADHD, adult residual type: Status: Acute (4) Helene: Status: Acute (5) Psychosis: Status: Acute Reason for Visit 96 hr hold Brief History: History of Present Illness Andrade Garrett is a 42 year old male who presented to the emergency department with the following report: Chief Complaint: Psychiatric Symptoms Stated Complaint: 96 hr hold Time Seen by Provider: 03/23/23 00:10 History of Present Illness: 42-year-old male presents to the emergen cy department under 96-hour hold with [facility] Department. They have a statement from the patient's stating that she feels like he is having hallucinations and paranoid type behavior. She states he is hiding cameras all around the property as he thinks that she is cheating on him and smoking methamphetamine. The patient states that his is saying all of this because he told her he wanted a divorce and that she is using methamphetamine. He denies SI or HI. He states that he is convinced that his is cheating on him and appears to be gaslighting everyone and attempts to turn them against him. He states that he has asked his daughters about strange men that have been in their house and the older daughter has told the younger daughter not to say anything. He states that he did drink some alcohol this evening and attempt to ease his stress. He states that he is concerned that people specifically men are coming to his house when he is not there or sneaking onto his property to be with his . Associated symptoms: Deny homicidal ideation or suicidal ideation He was admitted to the neuropsychiatric unit for definitive treatment of those issues. He presents today unknown to the inpatient unit reporting that he has never been psychiatrically hospitalized nor has he had any longstanding mental health treatment. He started telling a very long-winded very convoluted story of his seeming suspicious to a level that he ended up putting cameras in the home and then reported that what he discovered was that she would masturbate and possibly watch pornography during which she said constituted a departure from their agreed-upon behaviors. He later identified that it was okay for her to masturbate but that he was not sure if she should watch for longer fever from a spiritual standpoint and went on a long story about how they should create their own pornography for themselves only. He reports that then he took the cameras down and was not able to watch her but then there were a couple of mornings where he went And was pretty sure there was a man in the house but could not explain why that would be a reasonable time to try to have someone in there given that they sleep in the bed together. He seemed open to the possibility that this was hallucinating but then would return back to that same subject and similar accusations about her and possible infidelity that was based on something he noted very well could not have been real. His speech was quite pressured and it was hard to interject questions as he went along. He reported being diagnosed with ADHD in denies taking his Adderall ER 40 mg in any way other than it is prescribed. He was a fairly poor historian and was very focused on these beliefs that seemed questionable even as he spoke to him. We discussed concerns that he was having helene especially with his reports of poor sleep and going several days without sleeping. We discussed the possibility of bipolar disorder. We discussed the risks, benefits and alternatives of a trial of Abilify and he understood and agreed to proceed as is documented in this note. 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 We agreed we could work with his significant other to be able to bring something here to allow him to possibly do the payroll but that given the current information we were agreeable that concerns for safety with his possibly manic presentation existed and we had no plans of overturning the 96-hour hold. Per his 03/22/2023 crisis documentation: [facility] Contact Form Date Opened: 03/22/23 Time Opened: 10:08 Caller Information Person in Crisis Name:: Andrade Garrett Person in Crisis Phone:: Person in Crisis Address:: [address] [address] Caller Name if different from person in crisis: Beba Garrett Caller Relationship to Client:: Caller Phone:: C-SSRS Able to complete C-SSRS?: No (No client contact) Demographics Race/Ethnicity: White (non-) Gender: Male Sexual Orientation/Identity: Heterosexual Age: 35-44 Status: Laurier/Active Intellectual Disability: Unknown Client Call Information Primary problem of call:: Acute Mental Health Crisis Is person in crisis currently taking any medications?: Unknown Does person in crisis currently use alcohol or drugs?: Unknown Does person in crisis have any known medical conditions?: Unknown Intervention: Referred for a Mobile Crisis Response Mobile Crisis Response Location:: Facility Facility: [facility] Office Intervention:: Assisted with Admission to Inpatient Psychiatric Care Was mobile crisis response initiated by [facility]?: No Final Disposition Supports Utilized:: Support/opportunity to ventilate, Options for treatment, Promote hope, Validation, Encouragement and Supportive listening Actions taken narrative:: 03/22/23 [facility] met with Beba at the [facility] office. Beba reports that Andrade was in a manic state again this morning and was accusing her of having another man in the bed with them. Beba reports it has been very traumatic for the past 10 1/2 weeks since Andrade had a mental break. Beba r eports that things are mostly the same as when she last had contact with [facility] and reports that Andrade is not sleeping and will stay up for up to 4 days at a time then fall asleep for a few hour but often wakes up in full blown panic. Beba also reports that Andrade has not been eating though he does continue to drink alcohol. Beba was unsure if Andrade is using substance other than alcohol. Beba reports that Andrade has cameras all over the house to catch her cheating on him and is obsessed with the camera footage. Beba reports that Andrade now believes that she is hiding a man in the house, in varying places; roof, mattress, hedrick, in bed with them, etc. [facility] assisted Bbea with completed 96 hour hold paperwork for Andrade. [facility] let Beba know that [facility] would contact Beba once a decision had been made by the administration physician. 1140 [facility] faxed the hold paperwork to the [facility]. 1141 [facility] contacted Kenyetta at the [facility] and let her know the fax at been sent and requested a callback once a decision has been made. 1300 [facility] contacted Kenyetta to learn the disposition. Kenyetta stated it had been approved. 1303 [facility] made contact with Beba and let her know that the hold had been approved. 03/10/23 901 [facility] received a called from [facility] Beba. Beba reports that for the past 8 weeks Andrade has been manic and depressive. Beba also reports that Lucina is seeing and hearing things that are not real and has been accusing her of many things. Beba reports that Andrade lost his father 2 years ago when a drunk gravel truck driver hit him and that it has been hard on the entire family. Beba reports that Andrade had quit drinking but recently has started again and has been hiding it from her until he just revealed bottles he has tried to hide away. I explained that is Andrade was willing to go to the hospital he could be evaluated to determine if he is in need of inpatient treatment but if he is unwilling then 96 hour hold paperwork would need to be completed to get him to the hospital and evaluated. Beba stated is going to talk to her double cut off saw operator and may come to [facility] afterwards to complete the paperwork. [facility] encouraged Beba to contact I/988 as needed.Client Response to Intervention:: thank you Final Disposition:: 96 hour hold paperwork was completed and approved Hospital Course Hospital Course During the hospitalization, the patient had routine laboratory studies which were within normal limits except for a few outliers.? Additionally, there was a general medical evaluation which was also within normal limits and revealed no new acute processes.? At the time of discharge, lethality was denied and psychosis was resolving.? Mood and anxiety were well managed.? The patient endorsed a plan to avoid all drugs of abuse and follow up with the aftercare recommendations of the treatment team.? The patient was evaluated and deemed to be absent credible lethality and had achieved the maximum benefit from an inpatient hospitalization, and so was discharged.? The patient was started on Abilify with noted improvement in regards to paranoia. It was felt that the patient's Adderall dose combined with the patient's problem with Chronic Kidney Disease had delayed metabolism and increased blood levels of amphetamine well beyond therapeutic range and resulted in several of patient's psychiatric symptoms including increased anxiety, paranoia, hallucinations, insomnia that all appeared to dissipate after discontinuation of adderall here in the hospital. Hospital Course Hospital Course The patient had appeared quite psychotic initially on arriving onto the neuropsychiatric unit. He was placed on one-to-one as he had been intrusive. He was started on Invega 6 mg orally and showed significant improvement. He had reported that he had discontinued his mood stabilizer 1 week prior to arrival at the hospital here. Invega sustenna was started on 11/10/24 at 234mg IM with a plan for the patient to take his second Invega 156mg IM on 11/15/24. He remained on invega orally. During the hospitalization, the patient had routine laboratory studies which were within normal limits except for a few outliers.? Additionally, there was a general medical evaluation which was also within normal limits and revealed no new acute processes.? At the time of discharge, lethality was denied and psychosis was resolving.? Mood and anxiety were well managed.? The patient endorsed a plan to avoid all drugs of abuse and follow up with the aftercare recommendations of the treatment team.? The patient was evaluated and deemed to be absent credible lethality and had achieved the maximum benefit from an inpatient hospitalization, and so was discharged. ? Involuntary Hold Information Hold Status: Legal Status: 96 Hour Hold Date/Time Hold Expires: 11/13/24 @ 21:57 96 Hour Hold: 96 Hour Involuntary Admission: Yes Mental Status Exam MSE Comments: This is a well-nourished, well-developed white male in hospital scrubs with improved grooming and fair eye contact. He was calm and cooperative on interview. No abnormal involuntary motor movements other than increased psychomotor activity. He was cooperative with exam in no acute distress. Speech was normal rate and volume with no dysarthria present. Mood was described as better. Affect was euthymic on discharge. Thought process was linear and logical. Thought content: Patient denied suicidal or homicidal ideation. There was no paranoia. He did not appear to be responding to internal stimuli. Attention and concentration was improving. His recent and remote memory were grossly intact. He was alert and oriented to person, place, and time today. Insight was limited. His judgment was fair. His impulse control appeared better. Discharge Data Studies Completed and Pending: Completed Studies During Hospitalization Category Date Time Status XR ankle LT min 3 V* [id number] Routine Exams 11/08/24 11:23 Completed XR chest 1V bibi ble [id number] Stat Exams 11/07/24 21:59 Completed XR foot LT min 3V * [id number] Routine Exams 11/08/24 11:23 Completed Radiology Impressions Chest X-Ray 11/07/24 21:59 IMPRESSION: No acute findings. Ankle X-Ray 11/08/24 11:23 IMPRESSION: No acute findings. Foot X-Ray 11/08/24 11:23 IMPRESSION: No acute findings. Laboratory Results WBC 11.77 10^3/uL (3. 29-11.43) H 11/07/24 22:19 RBC 4.52 10^6/uL (3.8 5-5.65) 11/07/24 22:19 Hgb 14.60 g/dL (11.27 -16.99) 11/07/24 22:19 Hct 41.7 % (37-53) 11/07/24 22:19 MCV 92.3 fl (82-101) 11/07/24 22:19 MCH 32.3 pg (27-33) 11/07/24 22:19 MCHC 35.0 g/dL (30-55) 11/07/24 22:19 RDW 14.1 % (12.1-15.1 ) 11/07/24 22:19 Plt Count 320 10^3/cmm (157 -399) 11/07/24 22:19 MPV 8.7 fL (7.4-10.4) 11/07/24 22:19 Neut % (Auto) 64.2 % 11/07/24 22:19 Lymph % (Auto) 25.7 % 11/07/24 22:19 Barry % (Auto) 5.6 % 11/07/24 22:19 Eos % (Auto) 3.8 % 11/07/24 22:19 Baso % (Auto) 0.4 % 11/07/24 22:19 Neut # (Auto) 7.56 10^3/uL (1.8 -7.7) 11/07/24 22:19 Lymph # (Auto) 3.0 10^3/uL (0.8- 4.8) 11/07/24 22:19 Barry # (Auto) 0.7 10^3/uL (0.2- 0.9) 11/07/24 22:19 Eos # (Auto) 0.5 10^3/uL (0.0- 0.8) 11/07/24 22:19 Baso # (Auto) 0.1 10^3/uL (0.0- 0.1) 11/07/24 22:19 Nucleated RBC % (a uto) 0 % 11/07/24 22:19 Nucleated RBCs # 0.0 /100WBC 11/07/24 22:19 Sodium 135 mmol/L (136-1 45) L 11/07/24 22:19 Potassium 3.9 mmol/L (3.5-5 .1) 11/07/24 22:19 Chloride 98 mmol/L (98-107 ) 11/07/24 22:19 Carbon Dioxide 22 mmol/L (22-29) 11/07/24 22:19 Anion Gap 18.9 (5-19) 11/07/24 22:19 BUN 10 mg/dL (6-20) 11/07/24 22:19 Creatinine 1.0 mg/dL (0.7-1. 2) 11/07/24 22:19 GFR Calculation 81.2 mL/min (90-1 30) L 11/07/24 22:19 Glucose 119 mg/dL (65-115 ) H 11/07/24 22:19 Calculated Osmolal ity 280 mOsm/kg (285- 295) L 11/07/24 22:19 Calcium 8.9 mg/dL (8.5-10 .5) 11/07/24 22:19 Total Bilirubin 0.7 mg/dL (0.15-1 .2) 11/07/24 22:19 AST 21 U/L (0-40) 11/07/24 22:19 ALT 25 U/L (0-41) 11/07/24 22:19 Alkaline Phosphata se 62 U/L (40-130) 11/07/24 22:19 Total Protein 7.0 g/dL (6.6-8.7 ) 11/07/24 22:19 Albumin 4.0 g/dL (3.5-5.2 ) 11/07/24 22:19 Globulin 3.0 g/dL (1.3-4.6 ) 11/07/24 22:19 TSH 1.49 uIU/mL (0.27 -4.20) 11/07/24 22:19 Urine Color Yellow (Yellow) 11/07/24 22:41 Urine Appearance Clear (CLEAR) 11/07/24 22:41 Urine pH 7.5 (5-7) 11/07/24 22:41 Ur Specific Gravit y 1.009 (1.005-1.0 30) 11/07/24 22:41 Urine Protein Negative (Negati ve) 11/07/24 22:41 Urine Glucose (UA) Negative (Normal ) 11/07/24 22:41 Urine Ketones Negative (Negati ve) 11/07/24 22:41 Urine Blood Negative (Negati ve) 11/07/24 22:41 Urine Nitrate Negative (Negati ve) 11/07/24 22:41 Urine Bilirubin Negative (Negati ve) 11/07/24 22:41 Urine Urobilinogen 1.0 mg/dL (Negati ve) 11/07/24 22:41 Ur Leukocyte Naomi ase Negative (Negati ve) 11/07/24 22:41 Urine RBC 0-2 /hpf (0-2) 11/07/24 22:41 Urine WBC 0-5 /hpf (0-5) 11/07/24 22:41 Ur Squamous Epith Cells 0-5 /hpf (0-5) 11/07/24 22:41 Amorphous Sediment Not Reportable 11/07/24 22:41 Urine Bacteria None seen /hpf (N ONE) 11/07/24 22:41 Hyaline Casts 0-4 /lpf H 11/07/24 22:41 Salicylates < 0.3 mg/dL (3-10 ) L 11/07/24 22:19 Urine Opiates Scre en Negative ng/mL (N egative) 11/07/24 22:41 Acetaminophen < 5.0 ug/mL (10-3 0) L 11/07/24 22:19 Ur Barbiturates Sc reen Negative ng/mL (N egative) 11/07/24 22:41 Ur Phencyclidine S crn Negative ng/mL (N egative) 11/07/24 22:41 Ur Amphetamines Sc reen Negative ng/mL (N egative) 11/07/24 22:41 U Benzodiazepines Scrn Negative ng/mL (N egative) 11/07/24 22:41 Urine Cocaine Scre en Negative ng/mL (N egative) 11/07/24 22:41 U Marijuana (THC) Screen Negative ng/mL (N egative) 11/07/24 22:41 Ethyl Alcohol < 10 mg/dL (0-10) 11/07/24 22:19 Influenza A (PCR) Negative (Negati ve) 11/07/24 22:14 Influenza Type B ( PCR) Negative (Negati ve) 11/07/24 22:14 RSV (PCR) Negative (Negati ve) 11/07/24 22:14 SARS-CoV-2 (PCR) Negative (Negati ve) 11/07/24 22:14 Vitals: Last Vital Signs Temp 98.2 F 11/13/24 06:00 Pulse 84 11/13/24 06:00 Resp 16 11/13/24 06:00 BP 123/73 11/13/24 06:00 Pulse Ox 99 11/13/24 06:00 O2 Del Method Room Air 11/13/24 06:00 Discharge Plan Discharge Patient Disposition: Home Condition: Stable Prescriptions: New paliperidone 6 mg Tablet Extended Release 24hr 6 mg PO DAILY Qty: 14 0RF Rx Instructions: Take for 14 days then discontinue. Invega Sustenna 156 mg/mL syringe 156 mg IM Q30D Qty: 1 1RF Rx Instructions: Invega Sustenna due date 11/15/24 then next IM due on 12/16/24. Continued pantoprazole 40 mg tablet,delayed release (DR/EC) 40 mg PO DAILY folic acid 1 mg tablet 1 mg PO DAILY hydroxyzine HCl 25 mg tablet 25 mg PO QID PRN (Reason: Anxiety) Daily Multivitamin with Iron 18-400 mg-mcg tablet 1 tab PO DAILY thiamine mononitrate (vit B1) 100 mg tablet 100 mg PO DAILY apixaban 5 mg tablet 5 mg PO BID Creon 36,000-114,000- 180,000 unit capsule,delayed release(DR/EC) 2 cap PO TID Rx Instructions: administer with meals and/or snacks baclofen 20 mg tablet 20 mg PO DAILY Qty: 30 5RF tadalafil 20 mg tablet See Rx Instructions .ROUTE .COMPLEX Qty: 30 5RF Dose Instruction: TAKE 1 TABLET BY MOUTH EVERY DAY Rx Instructions: TAKE 1 TABLET BY MOUTH EVERY DAY lidocaine (PF) 20 mg/mL (2 %) solution 60 mg intra-articular ROUTINE Qty: 20 0RF Neurontin 300 mg capsule 300 mg PO 3XD Qty: 90 5RF cyclobenzaprine 7.5 mg tablet 7.5 mg PO TID 30 Days Qty: 90 0RF benztropine 0.5 mg tablet 0.5 mg PO BID PRN (Reason: EPS) Qty: 60 1RF clonazepam 1 mg tablet 1 mg PO .HS Qty: 30 2RF fluticasone propionate [Flonase Allergy Relief] 50 mcg/actuation spray,suspension 2 spray intranasal Q12H Qty: 16 0RF Rx Instructions: administer into each nostril azelastine [Astepro Allergy] 205.5 mcg (0.15 %) spray,non-aerosol 205.5 mcg intranasal BID Qty: 30 0RF Rx Instructions: administer into each nostril amoxicillin-pot clavulanate 875-125 mg tablet 1 tab PO BID Qty: 14 0RF Discharge Order = DC NOW: Discharge Order (Routine); Ordered 11/13/24 Ordered By: Isaias Ortega Referrals: [employer] [Other] Maryjane Carrillo PMHNP [Staff Physician, Psychiatry] - 11/18/24 11:45 am Referral Note: Follow up. Aurora Hines MD [Primary Care Provider, Family Practice] - 12/16/24 10:30 am Referral Note: Follow up Discharge Diet: Usual diet Discharge Activity: Resume usual activity Patient Instructions: Paliperidone (By mouth) (Invega), Paliperidone (By injection) (Invega Sustenna, Invega Trinza, Invega..., Psychotic Disorder (DC), Opioid Safety, Patient Portal & Quiana Instructions Discharge Attestations NPU Time Spent in Discharge Care*: less than 30 min Specific Discharge Activities: Specific discharge activities: educating patient, discussing with case preparer and liner/social workers/dc planners and documenting/other paperwork Coding Level of Care Code Acute Code for Chg Fwd Diagnoses Bipolar disorder with psychotic features F31.9 Paranoid F22 Psychosis F29 Alcohol abuse F10.10 Helene F30.9
[2024-11-13 12:10] VITALS: BP 123/73; PULSE 84; RESP 16; TEMP 36.8; O2SAT 99
--- NOTE | 2024-11-13 12:51 | PC.NURSE ---
Called out pt. pharm and informed them that pt. would turkey picker his Invega inj the day it was due to be given.
[2024-11-13 13:58] VITALS: BP 123/85; PULSE 103; RESP 17; TEMP 35.4; O2SAT 98
== END 2024-11-13 14:06 | disposition home or self-care (01) | DRG 885 ==
LOC: ER 11-08 00:36 → NP 11-08 01:04
PROVIDERS: Admitting Provider Psychiatry & Neurology Psychiatry; Emergency Provider Emergency Medicine; PCP Family Medicine; Visit Provider Psychiatry & Neurology Psychiatry
DX: F31.2 Bipolar disorder, current episode manic severe with psychotic features (principal); K50.90 Crohn's disease, unspecified, without complications; F10.20 Alcohol dependence, uncomplicated; F41.9 Anxiety disorder, unspecified; Z87.891 Personal history of nicotine dependence; Z86.718 Personal history of other venous thrombosis and embolism; Z79.82 Long term (current) use of aspirin; G47.00 Insomnia, unspecified; F90.8 Attention-deficit hyperactivity disorder, other type; N18.2 Chronic kidney disease, stage 2 (mild); I12.9 Hypertensive chronic kidney disease with stage 1 through stage 4 chronic kidney disease, or unspecified chronic kidney disease; Z81.8 Family history of other mental and behavioral disorders; Z88.1 Allergy status to other antibiotic agents; N40.0 Benign prostatic hyperplasia without lower urinary tract symptoms; G62.9 Polyneuropathy, unspecified; M48.061 Spinal stenosis, lumbar region without neurogenic claudication; Z87.19 Personal history of other diseases of the digestive system; Z86.711 Personal history of pulmonary embolism; Z91.A28 Caregiver's intentional underdosing of medication regimen for other reason; Y90.1 Blood alcohol level of 20-39 mg/100 ml; Z79.01 Long term (current) use of anticoagulants; Z01.84 Encounter for antibody response examination; Z63.0 Problems in relationship with spouse or partner
CPT/HCPCS: 36415; 71045; 73610; 73630; 80053; 80306; 80307; 81001; 84443; 85025; 87637; 93005; 96372; 97150; 97165; 99285; J1200; J1630; J3486; J9999

== ENCOUNTER 2024-11-18 10:37 | Emergency (ER) | payer BC, MEDICAID, SELFPAY ==
--- OUTSIDE RECORDS SUMMARY | 2014-07-04 11:54 | XMS_ITS | Continuity of Care Document ---
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 Name Role Phone Barbara Dove MSN, WHNP-BC, Vaishnavi Unavailable Unavailable Allergies, Adverse Reactions, Alerts Substance Reaction Status Criticality ciprofloxacin Hives Active No Information Medications Medication Instructions Dosage Effective Dates (start - stop) Status Comments lisinopril 20 mg tablet take 1 tablet by oral route every day 20 MG - Active Tylenol-Codeine #3 300 mg-30 mg tablet take 1 - 2 Tablet by oral route every 4 - 6 hours as needed for pain - Active Zoloft 100 mg tablet take 1 tablet by ORAL route every day 100 MG - Active lisinopril 20 mg tablet take 1 tablet by oral route every day 20 MG - No Longer Active Procedures Procedure Date Limit oral eval problem focused 015 OFFICE/OUTPATIENT VISIT, EST INFLUENZA ASSAY W/OPTIC OFFICE/OUTPATIENT VISIT, EST URINALYSIS NONAUTO W/O SCOPE Periapical ea add Limit oral eval problem focused 014 PT SEEN NO CHARGE Desensitizing Med Per Th Extraction erupted tooth or exposed root Extraction erupted tooth or exposed root Extraction erupted tooth or exposed root Partial Delivery PSY DX INTERVIEW WITHOUT MEDICAL 2013 Periapical first film Periapical ea add Dentures maxill part resin Palliative tx dental pain minor proc Jul Limit oral eval problem focused 014 OFFICE/OUTPATIENT VISIT, EST GLYCOSYLATED HEMOGLOBIN TEST ASSAY THYROID STIM HORMONE COMPLETE CBC W/AUTO DIFF WBC LIPID PANEL COMPREHEN METABOLIC PANEL ROUTINE VENIPUNCTURE OFFICE/OUTPATIENT VISIT, NEW Advance Directives Directive Yes / No Effective Date File Name No Information Encounters Encounter Description Practice Location Reason(s) For Visit Diagnoses Date Provider Providers Copied on Encounter [facility] ([facility]), [address], [place], [id number] , [place] tel: [phone] 03 [facility] Medical No Information 5 Barbara Riggins. [address], [place], [place], [id number] , [place]. tel: [phone] [facility] ([facility] [address], [place], [address] , [place] tel: [phone] 03 [facility] Dental Dental examination 5 Rosa Blankenship. [address], [address], [place], [place], [address] , [place]. tel:[phone] OFFICE/OUTPA TIENT VISIT, [facility], [address], [place], [id number] , [place] tel: [phone] 03 [facility] Medical hypertension (chief complaint)cou gh (chief complaint)dep ression (chief complaint) Bipolar disorder, unspecifiedHyper tension, UnspecifiedCough 4 Rolando Krishnamurthy MD. [address], [address], [place], [place], [address] , [place]. tel:[phone] OFFICE/OUTPA TIENT VISIT, [facility], [address], [place], [address] , [place] tel: [phone] 03 [facility] Medical fever (chief complaint)cou gh (chief complaint) FeverFlu-like symptomsDehydrat ion, mild Dec-0 2 4 Estella Powell. [address] , [address], [place], [place], [address] , [place]. tel: [phone] [facility] [address], [place], [address] , [place] tel: [phone] 03 [facility] Dental Dental examination Dec-0 4 Rosa Blankenship. [address], [address], [place], [place], [address] , [place]. tel: [phone] [facility] [address] [place] [address], [id number] , [place] tel: [phone] 03 [facility] Dental 4 Rosa Blankenship. [address] , [facility] [address], [place], [place], [id number] , [place]. tel: [phone] [facility], [address], [place], [address] , [place] tel: [phone] 03 [facility] Dental Dental examination 4 Rosa Blankenship. [address] , [address], [place], [place], [address] , [place]. tel: [phone] PSY DX INTERVIEW WITHOUT MEDICAL [facility] [address] [place] [address], [id number] , [place] tel: [phone] 03 [facility] Behavioral stressed (chief complaint)anx iety (chief complaint)sle ep disturbance (chief complaint) Bipolar disorder, unspecifiedAnxie ty Jul-2 4 Shelly Franco. [address], [place], [address] , [place]. tel: [phone] [facility], [facility] [address], [address] , [place] tel: [phone] 03 [facility] Dental Dental examination Jul- 4 Rosa Blankenship. [address], [address], [place], [place], [address] , [place]. tel: [phone] OFFICE/OUTPA TIENT VISIT, [facility], [facility] [address], [place], [address] , [place] tel: [phone] 03 [facility] Medical hypertension (chief complaint) OverweightHypert ension, Unspecified 4 Barbara Riggins. [address] , [address], [place], [place], [address] , [place]. tel: [phone] [facility] [address], [place], [address] , [place] tel: [phone] 03 [facility] Medical No Information 4 Barbara Riggins. [address] , [address], [place], [place], [address] , [place]. tel: [phone] OFFICE/OUTPA TIENT VISIT, [facility], [facility] [address], [place], [address] , [place] tel: [phone] 03 [facility] Medical hypertension (chief complaint) Hypertension, UnspecifiedOverw eightAnxiety 4 Barbara Riggins. [address] , [address], [place], [place], [address] , [place]. tel: [phone] Family History Family Member Type Diagnosis Age At Onset Father Problem (finding) hypertension Father Problem (finding) No Family hist ory of No history of Other Paternal grandfather Problem (finding) Heart disease Paternal grandfather Problem (finding) hypertension Payers Payer name Insurance type Covered republican ID Authoriza tion(s) No Information Social History Type Description Quantity Date Captured Comments Sex Male Smoking Status No Information Chief Complaint And Reason For Visit No Information Reason For Referral Reason For Referral No Information Plan Of Treatment Date Type Action Status Goal Tobacco cessation counseling completed Goal Tobacco cessation counseling completed Referral Ordered: Referral: Clinical Psychologist. Consult. ordered Referral Referred To: Mary Lou Carty Ordered: Referral: Mary Lou Carty. Consult. ordered Referral Referred To: Mary Lou Carty Ordered: Referral: Mary Lou Carty. Evaluate and treat. ordered History Of Present Illness Encounter Date Complaint History Of Prese nt Illness hypertension The HTN started in 2006. The symptoms began gradually. The severity has been described as being 5. The symptoms are/last > 1 hour. It is currently stable. Risk factors include family history HTN, gout or CAD and male gender. Associated symptoms include chest pain and diaphoresis. Pertinent negatives include confusion, dyspnea, fatigue, headache, nausea, tinnitus, tremor, visual disturbances and vomiting. Additional information: Pt. here today to get med refills on HTN meds. cough Onset: 1 week ag o. Severity: 5. The patient describes the cough as dry and non-productive. It occurs persistently. The problem has not changed. Context: behavioral. Symptoms are aggravated by cold air and lying down. There are no relieving factors. Associated symptoms include cough, dyspnea on exertion, hoarseness, nasal congestion, night sweats and post-nasal drainage. Pertinent negatives include chills, dyspnea, fatigue, fever, sinus pressure, sore throat and wheezing. Additional information: Pt. states he would like something to help relieve the coughing.. depression This is a follow up visit. The first episode occured in 2006. Related symptoms are fairly controlled. There is improvement of initial symptoms. The patient reports functioning as not difficult at all. The Global Assessment of Functioning Scale (GAF) = 60. The patient presents with decreased need for sleep, difficulty concentrating, difficulty falling asleep, difficulty staying asleep and restlessness but denies anxious/fearful thoughts, compulsive thoughts, easily startled, excessive worry, fatigue, feelings of guilt, feelings of invulnerability,decreased libido, increased libido, loss of appetite, paranoia or poor judgment. The patient's risk factors include family history of depression, family history of anxiety, family history of bipolar disorder and history of depression. The patient's risk factors exclude alcoholism, drug abuse, relationship problems and social isolation. The self denies any aggravating factors. Interventions the patient has tried have not provided any relief.... fever Onset: 4 days ag o. Maximum temperature = 102 deg. F. Duration is day. The patient describes it as spiking. It occurs daily. The status is unchanged. Context: exposure to illness at home, morning, afternoon and nighttime. He denies aggravating factors. Relieving factors include He denies relieving factors.. Associated symptoms include cough and decreased appetite. Pertinent negatives include back pain, decreased fluid intake, decreased urine output, diarrhea, difficulty breathing, nausea, neck stiffness, seizures, sore throat and vomiting. cough Onset: 4 days ag o. Severity: 4. The patient describes the cough as dry and productive (of green sputum). It occurs occasionally. The problem has not changed. Context: allergies. There are no aggravating factors. There are no relieving factors. Associated symptoms include chills, cough, hoarseness and night sweats. Pertinent negatives include dyspnea, fatigue, fever, nasal congestion, pleuritic pain, sore throat, weight loss and wheezing. sleep disturbance anxiety stressed hypertension The HTN started in 2006. Risk factors include family history HTN, gout or CAD and male gender. The hypertension is exacerbated by anxiety and stress. Associated symptoms include fatigue, headache and dizzyness. Additional information: pt stated he is having insommia not able to sleep at night. hypertension The HTN started in 2006. It is currently getting worse. Risk factors include family history HTN, gout or CAD and male gender. The hypertension is exacerbated by anxiety and stress. Associated symptoms include fatigue and headache. Pertinent negatives include chest pain, claudication, confusion, diaphoresis, dyspnea, epistaxis, irregular heartbeat/palpitations, nausea and vomiting. Functional Status Date Functional Assessmen t No Information Instructions Date Instruction Additional Infor mation Keep hydrated, discu ssed signs and symptoms of dehydration Related to Cough motrin/tylenol OTC pain/fever/discomfort Related to Fever Increase fluid intak e, pedialyte, gatorade, stay hydrated Related to Fever Take all medications as directed Related to Fever Oral challenge, praful varma plenty of liquids now please Related to Dehydration, mild warning s/sx gi marilia understanding voiced. Related to Dehydration, mild Weight management, h ealthy physical activity and follow-up discussed, will recheck BMI at next visit Related to Overweight Low fat diet Related to Overw eight Limit sodium to 2200mg daily Rel ated to Hypertension, Unspecified Exercise regularly Related to Hy pertension, Unspecified Check Blood pressure s and keep below 130/80 Related to Hypertension, Unspecified Go to Emergency Room if you have thoughts of injuring yourself Related to Anxiety Weight management, h jenlthy physical activity and follow-up discussed, will recheck BMI at next visit Related to Overweight Low fat diet Related to Overw eight Limit sodium to 2200mg daily Rel ated to Hypertension, Unspecified Exercise regularly Related to Hy pertension, Unspecified Check Blood pressure s and keep below 130/80 Related to Hypertension, Unspecified Notify health care p carlos immediately, if depression worsens Related to Anxiety Take medications as prescribed. If miss a dose, do not take extra pill Related to Anxiety Assessments Type Assessment Date No Information Patient Care Teams Name Effective Dates (start - stop) Status Members No Information
--- OUTSIDE RECORDS SUMMARY | 2017-03-31 05:00 | XMS_ITS | Continuity of Care Document ---
Author Organization [facility] Address [address] [place] [phone] Phone Care Team Providers Care Pharmacy Salesperson Name Role Phone [facility], Nurses Unavailable Unavailable Allergies, Adverse Reactions, Alerts Substance Reaction Status Criticality CIPROFLOXACIN HCL Active No Informa tion ciprofloxacin Active No Information Problems Condition Type Effective Dates (start - stop) Clini enoc Status Comments No Known Problems Procedures Procedure Date NURSE VISIT NURSE VISIT Advance Directives Directive Yes / No Effective Date File Name No Information Encounters Encounter Description Practice Location Reason(s) For Visit Diagnoses Date Provider [facility], [address], [place], [id number], [place] tel:[phone] [facility] Labs (chief complaint) No Information [facility]es. [address] [place], [address], [place]. tel:[phone] [facility], [address] [place] [address], [id number], [place] tel:[phone] [facility] Establish Care (chief complaint)U RI (chief complaint) Body mass index (BMI) 27.0-27.9, adultPain in throatSystemic viral illnessFever in other diseasesChronic midline low back pain with bilateral sciaticaOther chronic pain No Information Family History Family Member Type Diagnosis Age At Onset Problem (finding) Family history of hyper tension Payers Payer name Insurance type Covered green party ID Authoriza tion(s) SELF PAY Category A [id number] Social History Type Description Quantity Date Captured Comments Alcohol Use Details Unknown Caffeine Use Details Unknown Tobacco Use Status No Information Smoking Status No Information Sex Male Gender Identity Male Chief Complaint And Reason For Visit From encounter dated '03/31/2017 10:00'. Labs (chief complaint). Description: Patient in office requesting lab results. Lab results provided, no further questions. Plan Of Treatment Date Type Action Status Goal Tdap. Due on due Goal Td vaccine. Due on 17 due Goal Flu Vaccine. Due on due Goal Tdap. Due on due Goal Td vaccine. Due on due Goal Flu Vaccine. Due on due Goal Dietary manageme nt education, guidance, and counseling completed Patient Education A Healthy Lifestyle: Ca re Instructions completed History Of Present Illness Encounter Date Complaint History Of Prese nt Illness Labs Patient in offic e requesting lab results. Lab results provided, no further questions. Establish Care History of fract ured back in two places in his twenties from a skiing accident. PT exeriences chronic pain from that accident. Pt is here today to address illness for two months URI The symptoms beg an 2 months ago. The symptoms have remained unchanged. The symptoms occur constantly. The patient presents with arthralgia, cough, diarrhea (severity is moderate and with a frequency of 1x daily), earache, fatigue, fever and myalgia. The patient does not present with abdominal pain, anorexia, back pain, chills, generalized weakness, headache, lymphadenopathy, nausea, pharyngitis or vomiting. The self denies change in appetite, change in sleep cycle, constipation, diaphoresis, dizziness, dyspnea, hoarseness, increased abdominal girth, jaundice, lightheadedness, malaise, melena, neck stiffness, pruritus, rash, reduced urine output, somnolence, weight gain and weight loss. Additional information: Pt was exposed to strep throat two months ago but was never treated. He was sick for about two weeks with a sore throat then begin struggling with body aches and fatigue. Pt has waited 2 months but is still running low grade fevers and having muscle cramps. Instructions Date Instruction Additional Infor alexander exercise as discusse ivonne massage and chiropractic therapy Related to Chronic midline low back pain with bilateral sciatica Get plenty of rest i f you feel tired. Take an cswj-llw-dkxhsbz pain medicine if needed, such as acetaminophen (Tylenol), ibuprofen (Advil, Motrin), or naproxen (Aleve). Read and follow all instructions on the label. Be careful when taking wioi-awx-qxcpwdj cold or flu medicines and Tylenol at the same time. Many of these medicines have acetaminophen, which is Tylenol. Read the labels to make sure that you are not taking more than the recommended dose. Too much acetaminophen (Tylenol) can be harmful. Drink plenty of fluids, enough so that your urine is light yellow or clear like water. If you have kidney, heart, or liver disease and have to limit fluids, talk with your doctor before you increase the amount of fluids you drink. Stay home from work, school, and other public places while you have a fever. Related to Systemic viral illness Increase water intak e to a minimum of 3- 32oz glasses of water a day or until you are peeing every 2-3 hours Related to Fever in other diseases Dietary management e ducation, guidance, and counseling Related to Body mass index (BMI) 27.0-27.9, adult Giving encouragement to exercise Related to Body mass index (BMI) 27.0-27.9, adult Assessments Type Assessment Date No Information
--- OUTSIDE RECORDS SUMMARY | 2024-08-05 05:00 | XMS_ITS ---
Author Organization [facility] Address [address], [place] [id number] Care Team Providers Care Horseshoer Name Role Phone Shereen BIRD, Ronan Unavailable [phone] Ricardo BIRD, Naman Unavailable Unavailable Harmony Mascorro Unavailable [phone] Allergies Allergen (clinical drug ingredient) Drug/Non Drug [...] Location Date Provider Diagnosis [facility] [address], [place] [id number] 08/05/2024 Harmony Urena Other [facility] (current) drug therapy Z79.899 Assessments Encounter Date Diagnosis (ICD Code) Assessment Notes Treatment Notes Treatment Clinical Notes Section Notes 08/05/2024 Other [facility] (current) drug therapy (ICD-10 - Z79.899) Patient [...] Of Treatment Treatment Notes Assessment Notes Other long term care pharmacist (current) drug therapy Patient was given a [...] Notes * Elmer GARRETTOB:1980 (44 yo M)Acc No.[id number]:08/05/2024 Patient: Andrade BAUMANN Provider: FRANKY Elmore :1980 A ge:44 Y S ex:Male Date:08/05/2024 Address:[address] [place] [address] Subjective: * Chief Complaints: * 1 . [...] months Assessment: * Assessment: 1. O ther [facility] (current) drug therapy - Z79.899 (Primary) Plan: * Treatment: * Preventive Medicine: Counseling: P ain Management: Follow-up Plan documented: Y es Pain Screening: * * Images: * Electronic signature of Kandice Urena PAN OPERATOR on 11/20/2024 at 09:46 AM CDT Sign off status: Pending * Provider: FRANKY Elmore Date: 08/05/2024 Generated for Pauline rooney/Tucker/Sandra on: 0 11/20/2024 09:46 AM CDT History and Physical Notes * HPI (History of Present Illness) Category Sub-Category Detail Notes Category Not es Lumbar Spine pain in the lower back Cervical Spine pain in the neck Thoracic Spine pain in the mid back Sacro-Iliac / Coccyx pain * Medications Previous Therapy Previous therapy: therapist physical apy with benefit (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 [...] scanned documents Physician/Clinic notes Notes received from: [facility]; see scanned documents
[2024-11-18 10:46] VITALS: BP 129/87; PULSE 117; RESP 16; TEMP 36.8; O2SAT 96; BMI 26.4
--- NOTE | 2024-11-18 12:13 | CT_ITS ---
WS: [id number] CT ORBITS TECHNIQUE: Noncontrast CT of the orbits with coronal and sagittal reformatted images. CLINICAL INFORMATION: eye pain COMPARISON: None. DLP: 329.[address] scans at [facility] use at least one of these dose optimization techniques: automated exposure control; mA and/or kV adjustment per patient size (includes targeted exams where dose is matched to clinical indication); or iterative reconstruction. FINDINGS: Both globes are normal in appearance. No radiopaque foreign objects. Normal intraconal space. Rectus muscles are normal in appearance. Normal lacrimal glands. Paranasal sinuses are well aerated. Partially visualized mastoid air cells are well aerated. Normal posterior nasopharynx and parapharyngeal fat. No other acute findings. CT/CT orbit BI wo con* [id number] IMPRESSION: Normal noncontrast orbits
--- NOTE | 2024-11-18 12:13 | CT_ITS ---
WS: [id number] CT HEAD TECHNIQUE: Noncontrast CT of the head obtained from the skullbase to the vertex. CLINICAL INFORMATION: headache, eye pain COMPARISON: None. DLP: 1170.[address] scans at [facility] use at least one of these dose optimization techniques: automated exposure control; mA and/or kV adjustment per patient size (includes targeted exams where dose is matched to clinical indication); or iterative reconstruction. FINDINGS: No evidence of intracranial hemorrhage or mass effect. Ventricular system and basal cisterns are patent. No extra-axial fluid collections. No evidence of mass or mass effect. Normal hernandez-white differentiation. Paranasal sinuses and mastoid air cells are well aerated. .Normal visualized soft tissues. CT/CT head wo con* [id number] IMPRESSION: 1. No evidence of intracranial hemorrhage or mass effect. 2. No acute intracranial findings.
[2024-11-18] MEDS: tetracaine 0.5% Op Soln 4 mL Btl 1 DROP EYE-LEFT (12:20)
--- NOTE | 2024-11-18 12:21 | W.ED.EYEPROB ---
HPI - Eye Problem General: Chief complaint: Eye Problems Stated complaint: black spot in vision in L eye Time Seen by Provider: 11/18/24 10:58 History of Present Illness: Chief complaint is red spot in the vision. Patient states that on Monday he was grinding metal. He states he did not have any sharp pain or feel like he got hit in the eyes. He states he was wearing glasses. He states that afterwards he just had some mild irritation to the left eye and so he washed his eye out. He states that ever since then he has had a red or black spot in his vision. He has had some intermittent flashing lights with it. He does have a headache sometimes with it. No vomiting. No trauma. He states it has not changed and has been that way since Monday so he decided to come get checked out today. Related Data Home Medications ?Medication ?Instructions ?Recorded ?Confirmed apixaban 5 mg tablet 5 mg PO BID 10/07/24 11/18/24 folic acid 1 mg tablet 1 mg PO DAILY 10/07/24 11/18/24 hydroxyzine HCl 25 mg tablet 25 mg PO QID PRN Anxiety 10/07/24 11/18/24 lmzvpk-zzfeuwcy-aznxxnv 2 cap PO TID 10/07/24 11/18/24 36,000-114,000-180,000 unit capsule,delay rel (Creon) multivitamin-ferrous 1 tab PO DAILY 10/07/24 11/18/24 fumarate-folic acid 18 mg-400 mcg tablet (Daily Multivitamin with Iron) pantoprazole 40 mg tablet,delayed 40 mg PO DAILY 10/07/24 11/18/24 release thiamine mononitrate (vit B1) 100 100 mg PO DAILY 10/07/24 11/18/24 mg tablet Previous Rx's ?Medication ?Instructions ?Recorded baclofen 20 mg tablet 20 mg PO DAILY #30 tabs 03/31/24 tadalafil 20 mg tablet See Rx Instructions .Route 07/19/24 .COMPLEX #30 tabs gabapentin 300 mg capsule 300 mg PO 3XD #90 caps 10/08/24 (Neurontin) cyclobenzaprine 7.5 mg tablet 7.5 mg PO TID 30 days #90 tabs 10/24/24 benztropine 0.5 mg tablet 0.5 mg PO BID PRN EPS #60 tabs 10/28/24 clonazepam 1 mg tablet 1 mg PO .HS #30 tabs 11/04/24 azelastine 205.5 mcg (0.15 %) 205.5 mcg (0.137 mL) intranasal 11/06/24 nasal spray (Astepro Allergy) BID #30 mL fluticasone propionate 50 2 spray intranasal Q12H #16 grams 11/06/24 mcg/actuation nasal spray,suspension (Flonase Allergy Relief) amoxicillin 875 mg-potassium 1 tab PO BID #14 tabs 11/13/24 clavulanate 125 mg tablet paliperidone 6 mg tablet,extended 6 mg PO DAILY #14 tabs 11/13/24 release 24 hr paliperidone palmitate 156 mg/mL 156 mg IM Q30D #1 mL 11/18/24 intramuscular syringe (Invega Sustenna) Allergies Allergy/AdvReac Type Severity Reaction Status Date / Time ciprofloxacin (From Cipro) Allergy Severe ALGY-Swell Verified 11/18/24 14:08 Lip/Tongue/Throat [facility] ED PFS: Medical History (Updated 11/18/24 @ 13:28 by Uli Storm MD) Alcoholic pancreatitis hospitalized September 2024 at [facility] Deep vein thrombosis (DVT) of right lower extremity 11.5.24 provoked--after an injury; now on asa 4.29.25 Hypertension, essential atenolol, lisinopril, propranolol didn't work; tadalafil daily has really worked On combination antipsychotic drug therapy Cannabis abuse Nicotine dependence, chewing tobacco, uncomplicated Bipolar disorder with psychotic features BPH loc w urin obs/LUTS Psychiatric care Insomnia disorder 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 Smoker unmotivated to quit ADHD, adult residual type Diverticulosis CKD (chronic kidney disease) stage 2, GFR 60-89 ml/min History of spinal fracture L2 level in 2000 Peripheral neuropathic pain ADD (attention deficit disorder) Crohn disease says he was dxed in [place], colonoscopy 2018 Surgical History History of arthroscopic knee surgery right knee Family History Mother Bone disease Aplastic anemia Father Psychiatric illness Schizophrenia/ Bipolar Social History Smoking and tobacco/nicotine status: unknown if used tobacco/nicotine Quit status (tobacco/nicotine): has quit using Year quit tobacco: 2011 Alcohol intake: former Year of sobriety/quit date alcohol: 2024 Former alcohol use details: 1/2 pint daily until 09/2024--hospitalized for pancreatitis, now stopped Substance/Drug Use: never Caregiver/support person: No Lives independently: Yes Household members: spouse Marital status: Number of children: 4 Highest education level completed: Bachelor's Degree service: Yes Current occupational status: employed 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 Pupils equal and reactive to light. He does have a mild afferent pupillary defect on the left. No conjunctival injection. Grossly intact visual parks. No pain with movement of his eyes. No facial tenderness or swelling. No external signs of trauma. No swelling of the lids. He has no drift in his arms or legs. No facial droop. Speech is clear. Intact sensation. No neglect on bilateral simultaneous stimulation. Neck is supple. Heart regular rhythm. Lung sounds are clear. Abdomen soft nontender. Extremities warm well-perfused. No rash. No edema. Moves his neck and back freely. Moves extremities freely. Not suicidal. Shows ability to reason. Course Vital Signs: Vital signs: Vital Signs Temperature 98.2 F 11/18/24 10:46 Pulse Rate 102 H 11/18/24 13:36 Respiratory Rate 18 11/18/24 13:36 Blood Pressure 132/77 11/18/24 13:36 Pulse Oximetry 95 11/18/24 13:36 Oxygen Delivery Me thod Room Air 11/18/24 12:38 MDM - Eye Problem Medical Decision Making Patient reports having some slight blurring of his vision and reddish-black spot in his vision that never goes away in his left eye. He states he was grinding metal but did not have any suspected impact to his eye and he was wearing glasses. Retained metallic foreign body is unlikely by history and exam. Pupil is symmetric and reactive although he does have a subtle afferent pupillary defect. His NIH stroke scale is 0. He is on Eliquis for history of DVT. He states he has a history of some liver problems and pancreatitis related to alcohol use in the past, some psychiatric illness in the PE and DVT but denies any other medical problems. Denies history of stroke or aneurysms. Denies history of cancer. He denies any trauma or injury. His tetanus is not up-to-date in the last 5 years he states. Will update his tetanus in case of foreign body however I do not see evident foreign body on exam. I flipped his lid and there is no evident retained foreign body. He has no conjunctival injection. He moves his eye freely. Funduscopic exam shows brisk disc margins. I have used fluorescein staining of his eye with tetracaine drops and patient had no dye uptake. I measured his pressure in his left eye which was 13. With his anticoagulation and some intermittent headaches we will get CT head and orbits without contrast looking for retained foreign body or intracranial hemorrhage. Will check CBC CMP and EKG. Acute stroke would be low probability by exam and history with just a focal changes. Retinal detachment, retained foreign body, extremely broad differential. I consulted with Dr. Mina who requested patient be sent over to the office for further evaluation. I discussed with patient importance of going directly to the ophthalmology clinic for further evaluation and care in the midst of ED evaluation. Patient wants to continue his evaluation outpatient. He does not feel he is having change in symptoms since Monday. CT of the head and CT of the orbits negative for acute process per radiology. No reported evidence of foreign body or intracranial hemorrhage. CBC does not show elevated white count. ESR is not elevated. Patient EKG to my interpretation shows a sinus rhythm with a rate of 92 bpm. Will discharge patient to ophthalmology clinic after informed discussion with the patient. Lab Data 11/18/24 12:45 11/18/24 12:[address] 11/18/24 12:13 IMPRESSION: 1. No evidence of intracranial hemorrhage or mass effect. 2. No acute intracranial findings. Orbit CT 11/18/24 12:13 IMPRESSION: Normal noncontrast orbits Laboratory Results WBC 9.58 10^3/uL (3.29-11.43) 11/18/24 12:45 RBC 4.72 10^6/uL (3.85-5.65) 11/18/24 12:45 Hgb 15.10 g/dL (11.27-16.99) 11/18/24 12:45 Hct 44.2 % (37-53) 11/18/24 12:45 MCV 93.6 fl (82-101) 11/18/24 12:45 MCH 32.0 pg (27-33) 11/18/24 12:45 MCHC 34.2 g/dL (30-55) 11/18/24 12:45 RDW 13.3 % (12.1-15.1) 11/18/24 12:45 Plt Count 263 10^3/cmm (157-399) 11/18/24 12:45 MPV 8.5 fL (7.4-10.4) 11/18/24 12:45 Neut % (Auto) 65.2 % 11/18/24 12:45 Lymph % (Auto) 26.8 % 11/18/24 12:45 Roberts % (Auto) 6.3 % 11/18/24 12:45 Eos % (Auto) 1.1 % 11/18/24 12:45 Baso % (Auto) 0.4 % 11/18/24 12:45 Neut # (Auto) 6.24 10^3/uL (1.8-7.7) 11/18/24 12:45 Lymph # (Auto) 2.6 10^3/uL (0.8-4.8) 11/18/24 12:45 Roberts # (Auto) 0.6 10^3/uL (0.2-0.9) 11/18/24 12:45 Eos # (Auto) 0.1 10^3/uL (0.0-0.8) 11/18/24 12:45 Baso # (Auto) 0.0 10^3/uL (0.0-0.1) 11/18/24 12:45 Nucleated RBC % (auto) 0 % 11/18/24 12:45 Nucleated RBCs # 0.0 /100WBC 11/18/24 12:45 ESR 1 mm/hr (0-10) 11/18/24 12:45 Sodium 139 mmol/L (136-145) 11/18/24 12:45 Potassium 4.2 mmol/L (3.5-5.1) 11/18/24 12:45 Chloride 104 mmol/L (98-107) 11/18/24 12:45 Carbon Dioxide 22 mmol/L (22-29) 11/18/24 12:45 Anion Gap 17.2 (5-19) 11/18/24 12:45 BUN 9 mg/dL (6-20) 11/18/24 12:45 Creatinine 0.9 mg/dL (0.7-1.2) 11/18/24 12:45 GFR Calculation 91.7 mL/min (90-130) 11/18/24 12:45 Glucose 94 mg/dL (65-115) 11/18/24 12:45 Calculated Osmolality 286 mOsm/kg (285-295) 11/18/24 12:45 Calcium 9.0 mg/dL (8.5-10.5) 11/18/24 12:45 Total Bilirubin 0.3 mg/dL (0.15-1.2) 11/18/24 12:45 AST 24 U/L (0-40) 11/18/24 12:45 ALT 41 U/L (0-41) 11/18/24 12:45 Alkaline Phosphatase 64 U/L (40-130) 11/18/24 12:45 C-Reactive Protein 3.0 mg/L (0.0-4.9) 11/18/24 12:45 Total Protein 6.8 g/dL (6.6-8.7) 11/18/24 12:45 Albumin 3.9 g/dL (3.5-5.2) 11/18/24 12:45 Globulin 2.9 g/dL (1.3-4.6) 11/18/24 12:45 All radiology interpretation(s) finalized by discharge Discharge Plan Discharge Patient Disposition: Home Clinical Impression: Visual field scotoma, Intermittent headache Condition: Stable Prescriptions: No Action pantoprazole 40 mg tablet,delayed release (DR/EC) 40 mg PO DAILY folic acid 1 mg tablet 1 mg PO DAILY hydroxyzine HCl 25 mg tablet 25 mg PO QID PRN (Reason: Anxiety) Daily Multivitamin with Iron 18-400 mg-mcg tablet 1 tab PO DAILY thiamine mononitrate (vit B1) 100 mg tablet 100 mg PO DAILY apixaban 5 mg tablet 5 mg PO BID Creon 36,000-114,000- 180,000 unit capsule,delayed release(DR/EC) 2 cap PO TID Rx Instructions: administer with meals and/or snacks Invega Sustenna 156 mg/mL syringe 156 mg IM Q30D Qty: 1 1RF Rx Instructions: Invega Sustenna due date 12/16/24. baclofen 20 mg tablet 20 mg PO DAILY Qty: 30 5RF tadalafil 20 mg tablet See Rx Instructions .ROUTE .COMPLEX Qty: 30 5RF Dose Instruction: TAKE 1 TABLET BY MOUTH EVERY DAY Rx Instructions: TAKE 1 TABLET BY MOUTH EVERY DAY lidocaine (PF) 20 mg/mL (2 %) solution 60 mg intra-articular ROUTINE Qty: 20 0RF Neurontin 300 mg capsule 300 mg PO 3XD Qty: 90 5RF cyclobenzaprine 7.5 mg tablet 7.5 mg PO TID 30 Days Qty: 90 0RF benztropine 0.5 mg tablet 0.5 mg PO BID PRN (Reason: EPS) Qty: 60 1RF clonazepam 1 mg tablet 1 mg PO .HS Qty: 30 2RF fluticasone propionate [Flonase Allergy Relief] 50 mcg/actuation spray,suspension 2 spray intranasal Q12H Qty: 16 0RF Rx Instructions: administer into each nostril azelastine [Astepro Allergy] 205.5 mcg (0.15 %) spray,non-aerosol 205.5 mcg intranasal BID Qty: 30 0RF Rx Instructions: administer into each nostril paliperidone 6 mg Tablet Extended Release 24hr 6 mg PO DAILY Qty: 14 0RF Rx Instructions: Take for 14 days then discontinue. amoxicillin-pot clavulanate 875-125 mg tablet 1 tab PO BID Qty: 14 0RF Discharge Orders: Discharge ED (Routine); Ordered 11/18/24 Ordered By: Uli Storm Referrals: Aurora Hines MD [Primary Care Provider, Family Practice] Patient Instructions: Opioid Safety, Pain Management, Patient Portal & [place] Instructions Activity Restrictions/Additional Instructions: Go directly to the ophthalmology clinic as directed to see Dr. Dave today. Please return immediately if unable to see your doctor, change in vision, concerning or worsening headache, fever, vomiting, weakness in your arms or legs, any new or worsening symptoms or concerns. Follow-up on your test results with your primary care doctor Print Language: Salvadorean Coding Level of Care Code ED Air Crew Officer for Loretta Cody
--- NOTE | 2024-11-18 12:29 | DCPLANNER ---
faxed referral to [facility] for er f/u
--- NOTE | 2024-11-18 12:35 | ECG_ITS ---
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 Measurements Intervals [place] Rate: 92 P: 60 SD: 144 QRS: 71 QRSD: 90 T: 48 QT: 335 QTc: 416 Interpretive Statements SINUS RHYTHM Compared to ECG 11/07/2024 22:22:24 Sinus tachycardia no longer present Electronically Signed On 11-18-2024 16:11:29 CDT by Mary Beth Duncan M.D. [email or web address]
[2024-11-18] MEDS: tetanus-dipt-pertussis 0.5 mL SDV IM (12:36)
[2024-11-18 12:38] VITALS: BP 127/86; PULSE 90; O2SAT 96
--- NOTE | 2024-11-18 12:40 | PC.NURSE ---
EYE VISUAL TEST: 20/40 USING EACH EYE INDIVIDUALLY, 20/20 USING BOTH EYES
[2024-11-18 12:50] LABS: Hematocrit 44.2 % (37-53); Hemoglobin 15.10 g/dL (11.27-16.99); Mean Corpuscular HGB Conc 34.2 g/dL (30-55); Mean Corpuscular Hemoglobin 32.0 pg (27-33); Mean Corpuscular Volume 93.6 fl (82-101); Nucleated Red Blood Cells % 0 %; Platelet Count 263 10^3/cmm (157-399); Red Blood Count 4.72 10^6/uL (3.85-5.65); White Blood Count 9.58 10^3/uL (3.29-11.43)
[2024-11-18 13:13] LABS: Alanine Aminotransferase 41 U/L (0-41); Albumin Level 3.9 g/dL (3.5-5.2); Alkaline Phosphatase 64 U/L (40-130); Anion Gap 17.2 (5-19); Aspartate Amino Transferase 24 U/L (0-40); Blood Urea Nitrogen 9 mg/dL (6-20); Calcium 9.0 mg/dL (8.5-10.5); Carbon Dioxide 22 mmol/L (22-29); Chloride 104 mmol/L (98-107); Creatinine Clr Calc Pharmacy 121.3932; Globulin 2.9 g/dL (1.3-4.6); Glucose 94 mg/dL (65-115); Osmolality Calculated 286 mOsm/kg (285-295); Potassium 4.2 mmol/L (3.5-5.1); Sodium 139 mmol/L (136-145); Total Protein 6.8 g/dL (6.6-8.7)
[2024-11-18 13:36] VITALS: BP 132/77; PULSE 102; RESP 18; O2SAT 95
--- OUTSIDE RECORDS SUMMARY | 2024-11-20 09:46 | XMS_ITS | Encounter Summary ---
Author Organization [employer] Address 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 Name Role Phone Unavailable Primary Care Provider Unavailabl e Encounter Details Date Type Department Care Team (Late st Contact Info) Description 11/12/2024 External Device Data [place] ABSTRACTION Provider, Abstract NO ADDRESS ON FILE Social History Tobacco Use Types Packs/Day Years Used Date Smoking Tobacco: Former Cigarettes Sex and Gender Information Value Date Recorded Sex Assigned at Not on file Legal Sex Male 4:55 PM CDT Gender Identity Not on file Sexual Orientation Not on file documented as of this encounter Plan of Treatment Not on file documented as of this encounter Visit Diagnoses Not on filedocumented in this encounter
--- OUTSIDE RECORDS SUMMARY | 2024-11-20 09:46 | XMS_ITS | Patient Health Record ---
Author Organization [facility] Address [address] [place], [place] [id number] Care Team Providers Care Outreach Assistant Name Role Phone Ronan Regan MD Unavailable [phone] Naman Silva MD Unavailable Unavailable Harmony Mascorro Unavailable [phone] Allergies Allergen (clinical drug ingredient) Drug/Non Drug [...] Pain Manag ement Referred [facility] Referred Provider Ronan Regan Referred Address [address] [place], [id number], Referred Provider Specialty Pain Managem ent General [...] Problem Status W/U Status Risk Notes Problem Opioid use, unspecified, uncomplicated (F11.90) Active confirmed Problem Neurogenic claudication (461706871) Spinal stenosis, lumbar region with neurogenic claudication (M48.062) Active confirmed Plan Of Treatment No Information Insurance Providers Payer Name Payer Address Payer Phone Subscriber Number Group Number Insured Name Patient Relationship to Insured Coverage Start Date Coverage End Date [employer] [address] [address] [place] [id number] Andrade Garrett Self - patient is the [...]
--- OUTSIDE RECORDS SUMMARY | 2024-11-20 09:47 | XMS_ITS | Encounter Summary ---
Author Organization [employer] Address 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
--- OUTSIDE RECORDS SUMMARY | 2024-11-20 09:47 | XMS_ITS | Clinical Summary ---
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 5 Active tadalafiL (CIALIS) 20 mg tablet Take 1 Tablet by mouth daily. 5 Active benztropine (COGENTIN) 0.5 mg tablet Take 0.5 mg by mouth 2 times daily. 5 Active clonazePAM (KlonoPIN) 1 mg tablet Take 1 mg by mouth daily at bedtime. 5 Active gabapentin (NEURONTIN) 300 mg capsule Take 1 Capsule by mouth 3 times daily. 5 Active apixaban (ELIQUIS) 5 mg tablet Take 1 Tablet (5 mg) by mouth 2 times daily. 180 Tablet 1 5 Active folic acid (FOLVITE) 1 mg tablet Take 1 Tablet (1 mg) by mouth daily. 90 Tablet 3 5 Active hydrOXYzine HCL (ATARAX) 25 mg tablet Take 1 Tablet (25 mg) by mouth every 6 hours as needed for Anxiety. 120 Tablet 3 5 Active multivitamin tx with iron and folic acid tablet 18-400 mg-mcg Tablet Take 1 Tablet by mouth daily. 90 Tablet 3 5 Active pantoprazole (PROTONIX) 40 mg Tablet, Delayed Release (E.C.) Take 1 Tablet (40 mg) by mouth daily. 90 Tablet 1 5 Active risperiDONE (RisperDAL) 4 mg tablet Take 1 Tablet (4 mg) by mouth 2 times daily. 60 Tablet 1 Active thiamine mononitrate (VITAMIN B-1) 100 mg tablet Take 1 Tablet (100 mg) by mouth daily. 90 Tablet 1 Active HYDROmorphone (DILAUDID) 2 mg tabletIndications :Alcohol-induced acute pancreatitis without infection or necrosis Take 1 Tablet (2 mg) by mouth every 6 hours as needed for Pain. Max Daily Amount: 8 mg 20 Tablet Active ufhtez-xwpmzklx-a mylase (CREON) 36,000-114,000-18 0,000 unit capsule Take 2 Capsules by mouth 3 times daily with meals. 180 Capsule 6 Active Active Problems Problem Noted Date Diagnosed Date History of alcohol use 09/20/2024 Lactic acidosis 09/20/2024 Thromboembolism 09/20/2024 Bipolar 1 disorder 09/19/2024 Anxiety state 09/19/2024 Personal history of DVT (deep vein thrombosis) 0 09/19/2024 Overview (09/19/2024): 03/03 Alcohol use disorder 09/18/2024 Alcohol withdrawal syndrome, with delirium 09/18 Acute pancreatitis 09/18/2024 Leukocytosis (leucocytosis) 09/18/2024 Elevated lactic acid level 09/18/2024 Duodenitis 09/18/2024 SIRS (systemic inflammatory response syndrome) 0 09/18/2024 Urinary retention 09/18/2024 Alcohol-induced acute pancre atitis without infection or necrosis 09/18/2024 Encounters Date Type Department Care Team Description 11/13/2024 External Device Data [facility] ABSTRACTION Provider, Abstract 11/12/2024 External Device Data [facility]STRACTION Provider, Abstract 11/12/2024 External Device Data [facility]STRACTION Provider, Abstract 10/23/2024 External Device Data [facility]STRA[facility] Provider, Abstract 10/23/2024 External Device Data [facility]STRACTION Provider, Abstract 10/15/2024 External Device Data [facility]STRACTION Provider, Abstract 10/15/2024 External Device Data [facility]STRACTION Provider, Abstract 10/15/2024 External Device Data [facility] ABSTRACTION Provider, Abstract 09/25/2024 External Device Data [facility] ABSTRACTION Provider, Abstract 09/25/2024 External Device Data [facility]STRACTION Provider, Abstract 09/24/2024 External Device Data [facility] ABSTRACTION Provider, Abstract 09/17/2024 8:03 PM CDT - 10/01/2024 5:58 PM CDT Hospital Encounter [facility] 3D Medical Telemetry [address] [place] [address] Krzysztof Anaya DO Abbas, MD Jered Bailey Talha, MD Bandaru, Troy Ball MD Acute pancreatitis Discharge Disposition: Home or Self Care 09/17/2024 Travel from Last 3 Months Social History Tobacco Use Types Packs/Day Years Used Date Smoking Tobacco: Former Cigarettes Tobacco Cessation:Counseling Given: Not Answered Sex and Gender Information Value Date Recorded Sex Assigned at Not on file Legal Sex Male 4:55 PM CDT Gender Identity Not on file Sexual Orientation Not on file Last Filed Vital Signs Vital Sign Reading Time Taken Comments Blood Pressure 150/85 10/01/2024 3:00 PM CDT RN notified Pulse 117 10/01/2024 3:00 PM CDT Temperature 36.1 C (97 F) 10/01/2024 3:00 PM CDT Respiratory Rate 20 10/01/2024 3:00 PM CDT Oxygen Saturation 98% 10/01/2024 3:0 0 PM CDT Inhaled Oxygen Concentration - - Weight 88.3 kg (194 lb 10.7 oz) 09/29/2024 5:00 AM CDT Height 180.3 cm (5' 11 ) 09/18/2024 4:5 0 AM CDT Body Mass Index 27.15 09/18/2024 4:50 AM CDT Plan of Treatment Health Maintenance Due Date Last Done Comments Pre-Diabetes and Diabetes Screening 1980 HPV VACCINES (1 - Male 3-dose series) 07/24/1995 DTAP/TDAP/TD VACCINES (1 - Tdap) 07/24/1999 HEPATITIS B VACCINES (1 of 3 - 19+ 3-dose series) 07/09 INFLUENZA VACCINE (#1) 2024 Procedures Procedure Name Priority Date/Time Associated Diagnosis Comments TELEMETRY REPORT 10/02/2024 2:25 AM CDT COMPREHENSIVE METABOLIC PANEL Routine 10/01/2024 4:41 AM CDT CBC WITH DIFFERENTIAL Routine 10/01/2024 4:[address] ABDOMEN PELVIS W CONTRAST Pending Discharge 09/30/2024 2:14 PM CDT COMPREHENSIVE METABOLIC PANEL Routine 09/30/2024 3:50 AM CDT CBC WITH DIFFERENTIAL Routine 09/30/2024 3:50 AM CDT COMPREHENSIVE METABOLIC PANEL Routine 09/29/2024 4:18 AM CDT CBC WITH DIFFERENTIAL Routine 09/29/2024 4:[address] CHEST ABDOMEN PELVIS W CONT Pending Discharge 09/28/2024 1:50 PM CDT COMPREHENSIVE METABOLIC PANEL Routine 09/28/2024 1:46 AM CDT CBC WITH DIFFERENTIAL Routine 09/28/2024 1:46 AM CDT VANCOMYCIN LEVEL TROUGH Timed Study 09/27/2024 10:55 AM CDT COMPREHENSIVE METABOLIC PANEL Routine 09/27/2024 3:55 AM CDT CBC WITH DIFFERENTIAL Routine 09/27/2024 3:54 AM CDT COMPREHENSIVE METABOLIC PANEL Routine 09/26/2024 1:54 AM CDT CBC WITH DIFFERENTIAL Routine 09/26/2024 1:54 AM CDT COMPREHENSIVE METABOLIC PANEL Routine 09/25/2024 4:13 AM CDT CBC WITH DIFFERENTIAL Routine 09/25/2024 4:13 AM CDT COMPREHENSIVE METABOLIC PANEL Routine 09/24/2024 5:49 AM CDT CBC WITH DIFFERENTIAL Routine 09/24/2024 5:49 AM CDT VANCOMYCIN LEVEL TROUGH Timed Study 09/23/2024 10:54 AM CDT CBC WITH DIFFERENTIAL Routine 09/23/2024 5:44 AM CDT COMPREHENSIVE METABOLIC PANEL Routine 09/23/2024 1:47 AM CDT EKG 12-LEAD Routine 09/22/2024 11:24 AM CDT COMPREHENSIVE METABOLIC PANEL Routine 09/22/2024 5:56 AM CDT CBC WITH DIFFERENTIAL Routine 09/22/2024 5:56 AM CDT BLOOD CULTURE Routine 09/21/2024 11:28 AM CDT BLOOD CULTURE Routine 09/21/2024 11:28 AM CDT BLOOD CULTURE Routine 09/21/2024 11:13 AM CDT BLOOD CULTURE Routine 09/21/2024 11:13 AM CDT COMPREHENSIVE METABOLIC PANEL Routine 09/21/2024 8:54 AM CDT CBC WITH DIFFERENTIAL Routine 09/21/2024 8:54 AM CDT OSMOLALITY, URINE Routine 09/20/2024 1:0 3 PM CDT SODIUM, RANDOM URINE Routine 09/20/2024 1:03 PM CDT D-DIMER Routine 09/20/2024 1:01 PM CDT RT ASSESS AND TREAT Routine 09/20/2024 11:53 AM CDT CTA CHEST W AND/OR WO CONTRAST Routine 09/20/2024 11:21 AM CDT CORTISOL LEVEL Routine 09/20/2024 3:48 AM CDT URIC ACID Routine 09/20/2024 3:48 AM CDT BASIC METABOLIC PANEL Routine 09/20/2024 3:48 AM CDT US VENOUS DOPPLER LEG BILATERAL Routine 09/19/2024 3:12 PM CDT CBC WITH DIFFERENTIAL Stat 09/19/2024 9:58 AM CDT BASIC METABOLIC PANEL Routine 09/19/2024 6:18 AM CDT BASIC METABOLIC PANEL Timed Study 09/18/2024 1:41 PM CDT CBC WITH DIFFERENTIAL Timed Study 09/18/2024 1:41 PM CDT BASIC METABOLIC PANEL Stat 09/18/2024 4:15 AM CDT CBC WITH DIFFERENTIAL Stat 09/18/2024 4:15 AM CDT LACTIC ACID Stat 09/17/2024 11:[address] ABDOMEN PELVIS W CONTRAST Stat 09/17/2024 10:42 PM CDT US RIGHT UPR QUADRANT Stat 09/17/2024 10:30 PM CDT EKG 12-LEAD Stat 09/17/2024 10:03 PM CDT EXTRA TUBE (URINE BONILLA) Stat 09/17/2024 9:30 PM CDT DRUG SCREEN, URINE Stat 09/17/2024 9: 30 PM CDT URINALYSIS W/REFLEX MICROSCOPIC Stat 09/17/2024 9:30 PM CDT XR CHEST PA OR AP 1 VW Stat 8:53 PM CDT KETONES/BETA HYDROXYBUTYRATE Stat 09/17/2024 7:14 PM CDT MAGNESIUM LEVEL Stat 09/17/2024 7:14 PM CDT ETHANOL LEVEL Stat 09/17/2024 7:14 PM CDT EXTRA TUBE (LAV) Stat 09/17/2024 7:14 PM CDT EXTRA TUBE Stat 09/17/2024 7:14 PM CDT LACTIC ACID Stat 09/17/2024 7:14 PM CDT TSH REFLEXIVE Stat 09/17/2024 7:14 PM CDT LIPASE Stat 09/17/2024 7:14 PM CDT COMPREHENSIVE METABOLIC PANEL Stat 09/17/2024 7:14 PM CDT CBC WITH DIFFERENTIAL Stat 09/17/2024 7:14 PM CDT CRITICAL CARE Routine 09/17/2024 4:55 PM CDT from Last 3 Months Results * TELEMETRY REPORT (10/02/2024 2:25 AM CDT) us Provider Scanning ECG ORDERABLES Final Result * (ABNORMAL) CBC WITH DIFFERENTIAL (10/01/2024 4:41 AM CDT) Only the most recent of15 resultswithin the time period is included. [facility] WBC 12.2(H) 4.5 - 11.0 K/uL 10/01/2024 5:19 AM CDT [facility] RBC 4.03(L) 4.60 - 6.20 M/uL 10/01/2024 5:19 AM CDT [facility] HEMOGLOBIN 13.5(L) 14.0 - 18.0 g/dL 10/01/2024 5:19 AM CDT [facility] HEMATOCRIT 39.3(L) 41.0 - 53.0 % 10/01/2024 5:19 AM [facility] MCV 97.5 84.0 - 103.0 fL 10/01/2024 5:19 AM [facility] [employer] [facility] MCH 33.5 27.0 - 34.0 pg 10/01/2024 5:19 AM [facility] MCHC 34.4 30.0 - 35.0 g/dL 10/01/2024 5:19 AM [facility] [employer] [facility] PLATELETS 822(H) 140 - 440 K/uL 10/01/2024 5:19 AM [facility] MPV 8.5(L) 8.9 - 12.8 fL 10/01/2024 5:19 AM [facility] [employer] [facility] RDW 15.7(H) 11.0 - 14.5 % 10/01/2024 5:19 AM [facility] RDW-STDEV 56.9(H) 37.0 - 54.0 fL 10/01/2024 5:19 AM [facility] [employer] [facility] NEUTROPHILS 65 42 - 75 % 10/01/2024 5:19 AM [facility] LYMPHOCYTES 24 24 - 44 % 10/01/2024 5:19 AM [facility] MONOCYTES 7 2 - 10 % 10/01/2024 5:19 AM [facility] [facility] EOSINOPHILS 3 0 - 7 % 10/01/2024 5:19 AM [facility] BASOPHILS 1 0 - 1 % 10/01/2024 5:19 AM [facility] IMMATURE GRANULOCYTES 1 0 - 2 % 10/01/2024 5:19 AM [facility] NEUTROPHIL ABSOLUTE 7.89 2.00 - 8.00 K/uL 10/01/2024 5:19 AM [facility] LYMPHOCYTE ABSOLUTE 2.92 1.20 - 4.00 K/uL 10/01/2024 5:19 AM [facility] MONOCYTE ABSOLUTE 0.81(H) 0.10 - 0.60 K/uL 10/01/2024 5:19 AM CDT [facility] EOSINOPHIL ABSOLUTE 0.40 0.00 - 0.70 K/uL 10/01/2024 5:19 AM CDT [facility] BASOPHILS ABSOLUTE 0.07 0.00 - 0.20 K/uL 10/01/2024 5:19 AM CDT [facility] IMMATURE GRANULOCYTES ABSOLUTE 0.10 0.00 - 0.10 K/uL 10/01/2024 5:19 AM CDT [facility] SMEAR REVIEWED: NA - Not Applicable 10/01/2024 5:19 AM T [facility] Blood Venipuncture / Unknown 10/01/2024 4:41 AM CDT 10/01/2024 5:11 AM CDT Troy Jimenez MD HEMATOLOGY ORDERABLES Naina l Result [facility] CLIA # [id number] [address] [place] [id number] * (ABNORMAL) COMPREHENSIVE METABOLIC PANEL (10/01/2024 4:41 AM CDT) Only the most recent of12 resultswithin the time period is included. SODIUM 140 136 - 145 mmol/L 10/01/2024 5:46 AM T [facility] POTASSIUM 3.7 3.5 - 5.1 mmol/L 10/01/2024 5:46 AM T [facility] CHLORIDE 105 98 - 107 mmol/L 10/01/2024 5:46 AM CDT [facility] CO2 24 22 - 29 mmol/L 10/01/2024 5:46 AM CDT [facility] CALCIUM 8.7 8.6 - 10.0 mg/dL 10/01/2024 5:46 AM CDT [facility] BUN 4(L) 6 - 20 mg/dL 10/01/2024 5:46 AM CDT [facility] CREATININE 0.88 0.67 - 1.17 mg/dL 10/01/2024 5:46 AM [facility] GLUCOSE 119(H) 74 - 99 mg/dL 10/01/2024 5:46 AM [facility] TOTAL PROTEIN 6.4 6.4 - 8.3 g/dL 10/01/2024 5:46 AM [facility] ALBUMIN 3.2(L) 3.5 - 5.2 g/dL 10/01/2024 5:46 AM T [facility] BILIRUBIN TOTAL 0.3 0.0 - 1.0 mg/dL 10/01/2024 5:46 AM [facility] ALKALINE PHOSPHATASE 55 40 - 129 U/L 10/01/2024 5:46 AM [facility] AST 20 10 - 50 U/L 10/01/2024 5:46 AM [facility] ALT 18 <=50 U/L 10/01/2024 5:46 AM [facility] GFR >60 >=60 mL/min/1.7 3 sq meter 10/01/2024 5:46 AM [facility] Comment:eGFR calculated with 2020 CKD-EPI equation. Vegetarian diet, extremely high or low muscle mass, and may affect results. Cystatin C with Glomerular Filtration Rate is a suitable alternative for these patients. ANION GAP 11 9 - 20 mmol/L 10/01/2024 5:46 AM [facility] Blood Venipuncture / Unknown 10/01/2024 4:41 AM CDT 10/01/2024 5:11 AM CDT us Troy Jimenez MD CHEMISTRY ORDERABLES Final Result [facility] CLIA # [id number] [address] [place] [address] [place] [address] * CT ABDOMEN PELVIS W CONTRAST (09/30/2024 2:14 PM CDT) Only the most recent of2 resultswithin the time period is included. Anatomical Region Laterality Modality Abdomen Computed Tomogra phy 09/30/2024 2:05 PM CDT Impressions 09/30/2024 2:30 PM CDT IMPRESSION: Please see below. Exam: CT ABDOMEN PELVIS W CONTRAST Date/Time of Exam: 09/30/2024 2:14 PM Reason For Exam: Acute pancreatic necrotic collection. Diagnosis: Alcohol-induced acute pancreatitis, unspecified complication status; History of alcohol use; Lactic acidosis. Technique: Axial tomograms obtained through the abdomen and pelvis with Isovue 300 intravenous contrast, 75 mL. Findings: Comparison to chest abdomen pelvis CT of 09/28/2024. Imaged lower thorax with trace bilateral pleural reaction. No significant change of moderate peripancreatic heterogeneous inflammatory change surrounding body and tail of pancreas with subtle small pockets of rim-enhancing fluid but no percutaneously drainable fluid collection. No soft tissue emphysematous change. No discrete intrinsic pancreatic lesion. No ascites. No free air. Potential cystitis with uniformly thickened bladder wall. Colonic diverticulosis. No obstructive pattern of bowel. Appendix within normal limits. Abdominal aorta remains nonaneurysmal. No lymphadenopathy. Remainder of solid upper abdominal organs within normal limits. Gallbladder partially contracted. No radiopaque gallstone. No concerning skeletal pathology. IMPRESSION: 1. Stable exam. No significant change of ongoing acute pancreatitis with peripancreatic heterogeneous inflammatory change. No percutaneously drainable fluid collection. 2. Potential cystitis. Other findings as detailed above. Narrative Procedure Note oMre Walter MD - 09/30/2024 IMPRESSION: Please see below. Exam: CT ABDOMEN PELVIS W CONTRAST Date/Time of Exam: 09/30/2024 2:14 PM Reason For Exam: Acute pancreatic necrotic collection. Diagnosis: Alcohol-induced acute pancreatitis, unspecified complication status; History of alcohol use; Lactic acidosis. Technique: Axial tomograms obtained through the abdomen and pelvis with Isovue 300 intravenous contrast, 75 mL. Findings: Comparison to chest abdomen pelvis CT of 09/28/2024. Imaged lower thorax with trace bilateral pleural reaction. No significant change of moderate peripancreatic heterogeneous inflammatory change surrounding body and tail of pancreas with subtle small pockets of rim-enhancing fluid but no percutaneously drainable fluid collection. No soft tissue emphysematous change. No discrete intrinsic pancreatic lesion. No ascites. No free air. Potential cystitis with uniformly thickened bladder wall. Colonic diverticulosis. No obstructive pattern of bowel. Appendix within normal limits. Abdominal aorta remains nonaneurysmal. No lymphadenopathy. Remainder of solid upper abdominal organs within normal limits. Gallbladder partially contracted. No radiopaque gallstone. No concerning skeletal pathology. IMPRESSION: 1. Stable exam. No significant change of ongoing acute pancreatitis with peripancreatic heterogeneous inflammatory change. No percutaneously drainable fluid collection. 2. Potential cystitis. Other findings as detailed above. Chrissie Frey MD CT ORDERABLES Final Result * CT CHEST ABDOMEN PELVIS W CONT (09/28/2024 1:50 PM CDT) Anatomical Region Laterality Modality Chest Computed Tomogra phy 09/28/2024 1:51 PM CDT Impressions 09/28/2024 2:31 PM CDT IMPRESSION: 1. Findings of ongoing acute pancreatitis with heterogeneous fluid and stranding surrounding the pancreatic tail concerning for areas of evolving peripancreatic necrosis; no percutaneously drainable fluid collection identified. Overall the peripancreatic and retroperitoneal edema and fluid has however significantly improved compared to 09/17/2024 2. Small/trace bilateral pleural effusions with scattered atelectasis in the lung bases, also improved over the interval. 3. Hepatic steatosis. 4. Otherwise as above. Narrative 09/28/2024 2:31 PM CDT EXAM: CT CHEST ABDOMEN PELVIS W CONT DATE/TIME OF EXAM: 09/28/2024 1:50 PM REASON FOR EXAM: leucocytosis, acute pancreatitis complications DIAGNOSIS: Alcohol-induced acute pancreatitis, unspecified complication status; History of alcohol use; Lactic acidosis COMPARISON: 09/17/2024 TECHNIQUE: Multiple contiguous axial images were obtained of the chest, abdomen and pelvis after administration of intravenous contrast. Supplemental 2D reformatted images were generated and reviewed as needed. FINDINGS: CHEST: Mediastinum: No pathologically enlarged or morphologically suspicious lymph nodes. Heart and vessels: Heart size is normal. No pericardial effusion. Lungs: Small bandlike opacities in lung bases most consistent with areas of subsegmental atelectasis. No pulmonary edema or significant lung consolidation. The central airways are patent. Pleura: Small/trace bilateral pleural effusions. ABDOMEN: Liver: Abnormal attenuation and heterogeneity liver likely secondary to areas of geographic steatosis. The portal vein is patent. Gallbladder and Bile ducts: No radiodense gallstones. Bile ducts are non-dilated. Spleen: Normal. Pancreas: Mild enlargement and heterogeneity to the pancreatic tail with extensive peripancreatic fat stranding around the pancreatic tail is small pockets of rim-enhancing fluid; no definite percutaneously drainable fluid collection or soft tissue emphysema. No main duct dilatation. Minimal fat stranding surrounding the pancreatic head and neck. The severity of peripancreatic and retroperitoneal stranding has substantially improved since the recent CT comparison. Adrenals: Normal. Kidneys, ureters, and urinary bladder: Kidneys are normal in size. No acute findings; no hydronephrosis. Urinary bladder is normal. Bowel: No evidence of a small bowel obstruction. Colonic diverticulosis; no findings to suggest superimposed acute colonic diverticulitis. Peritoneum/retroperitoneum: No ascites. No enlarged retroperitoneal lymph nodes. Vascular: No abdominal aortic aneurysm. Reproductive: No suspicious pelvic masses. Bone and soft tissues: No suspicious bony lesions. Small fat-containing inguinal hernias. Procedure Note Puma Guerra MD - 09/28/2024 EXAM: CT CHEST ABDOMEN PELVIS W CONT DATE/TIME OF EXAM: 09/28/2024 1:50 PM REASON FOR EXAM: leucocytosis, acute pancreatitis complications DIAGNOSIS: Alcohol-induced acute pancreatitis, unspecified complication status; History of alcohol use; Lactic acidosis COMPARISON: 09/17/2024 TECHNIQUE: Multiple contiguous axial images were obtained of the chest, abdomen and pelvis after administration of intravenous contrast. Supplemental 2D reformatted images were generated and reviewed as needed. FINDINGS: CHEST: Mediastinum: No pathologically enlarged or morphologically suspicious lymph nodes. Heart and vessels: Heart size is normal. No pericardial effusion. Lungs: Small bandlike opacities in lung bases most consistent with areas of subsegmental atelectasis. No pulmonary edema or significant lung consolidation. The central airways are patent. Pleura: Small/trace bilateral pleural effusions. ABDOMEN: Liver: Abnormal attenuation and heterogeneity liver likely secondary to areas of geographic steatosis. The portal vein is patent. Gallbladder and Bile ducts: No radiodense gallstones. Bile ducts are non-dilated. Spleen: Normal. Pancreas: Mild enlargement and heterogeneity to the pancreatic tail with extensive peripancreatic fat stranding around the pancreatic tail is small pockets of rim-enhancing fluid; no definite percutaneously drainable fluid collection or soft tissue emphysema. No main duct dilatation. Minimal fat stranding surrounding the pancreatic head and neck. The severity of peripancreatic and retroperitoneal stranding has substantially improved since the recent CT comparison. Adrenals: Normal. Kidneys, ureters, and urinary bladder: Kidneys are normal in size. No acute findings; no hydronephrosis. Urinary bladder is normal. Bowel: No evidence of a small bowel obstruction. Colonic diverticulosis; no findings to suggest superimposed acute colonic diverticulitis. Peritoneum/retroperitoneum: No ascites. No enlarged retroperitoneal lymph nodes. Vascular: No abdominal aortic aneurysm. Reproductive: No suspicious pelvic masses. Bone and soft tissues: No suspicious bony lesions. Small fat-containing inguinal hernias. IMPRESSION: 1. Findings of ongoing acute pancreatitis with heterogeneous fluid and stranding surrounding the pancreatic tail concerning for areas of evolving peripancreatic necrosis; no percutaneously drainable fluid collection identified. Overall the peripancreatic and retroperitoneal edema and fluid has however significantly improved compared to 09/17/2024 2. Small/trace bilateral pleural effusions with scattered atelectasis in the lung bases, also improved over the interval. 3. Hepatic steatosis. 4. Otherwise as above. Troy Jimenez MD CT ORDERABLES Final Resu lt * VANCOMYCIN LEVEL TROUGH (09/27/2024 10:55 AM CDT) Only the most recent of2 resultswithin the time period is included. VANCOMYCIN, TROUGH 15.8 10.0 - 17.0 ug/mL 09/27/2024 11:30 AM CDT [facility] [facility] Blood Venipuncture / Unknown 09/27/2024 10:55 AM CDT 09/27/2024 10:58 AM CDT Troy Jimenez MD CHEMISTRY ORDERABLES Final Result [facility] CLIA # [id number] [address] [place] [id number] * EKG 12-LEAD (09/22/2024 11:24 AM CDT) Only the most recent of2 resultswithin the time period is included. 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 Tender: [id number] : 1980 Requested By: Order Number: [id number] Reading MD: Loraine Villanueva Measurements Intervals Prince Rate: 79 P: 79 NH: 148 QRS: 87 QRSD: 82 T: 80 QT: 358 QTc: 410 Interpretive Statements Normal sinus rhythm Normal ECG Electronically Signed On 09-22-2024 13:12:59 CDT by Loraine Villanueva Procedure Note Provider, Historical - 09/22/[address] [address] Test Date: 2024-09-22 Pat Name: PATRICA GREGORIOER Department: 12 Room: [address] [place] [address] Gender: Male Muffler Tender: [id number] : 1980 Requested By: Order Number: [id number] Reading : Loraine Villanueva Measurements Intervals Prince Rate: 79 P: 79 NH: 148 QRS: 87 QRSD: 82 T: 80 QT: 358 QTc: 410 Interpretive Statements Normal sinus rhythm Normal ECG Electronically Signed On 09-22-2024 13:12:59 CDT by Loraine Villanueva us Troy Jimenez MD ECG ORDERABLES Final Resu lt INTERFACE SYSTEM Refer to clinic/hospital department * BLOOD CULTURE (09/21/2024 11:28 AM CDT) Only the most recent of2 resultswithin the time period is included. BLOOD CULTURE No growth 09/26/2024 12:43 PM CDT [facility] Blood (Peripheral) Venipuncture / Unknown 09/21/2024 11:28 AM CDT 09/21/2024 11:57 AM CDT Troy Jimenez MD MICROBIOLOGY - GENERAL ORD ERABLES Final Result Performing Organization Address [facility]/ZIP Co de Phone Number [facility] CLIA # [id number] [address] [place] [address] [id number] * SODIUM, RANDOM URINE (09/20/2024 1:03 PM CDT) SODIUM, URINE 127 mmol/L 09/20/2024 1:32 PM CDT [facility] Comment:Reference range not established Urine URINE SPECIMEN OBTAINED BY CLEAN CATCH PROCEDURE / Unknown Collection / Unknown 09/20/2024 1:03 PM CDT 09/20/2024 1:06 PM CDT Troy Jimenez MD URINE ORDERABLES Final Res ult Performing Organization Address City/[facility]/ZIP Co de Phone Number [facility] CLIA # [id number] [address] [place] [id number] * OSMOLALITY, URINE (09/20/2024 1:03 PM CDT) OSMOLALITY, URINE 416 50 - 1,200 mOsm/kg 09/20/2024 1:45 PM CDT [facility] Urine URINE SPECIMEN OBTAINED BY CLEAN CATCH PROCEDURE / Unknown Collection / Unknown 09/20/2024 1:03 PM CDT 09/20/2024 1:06 PM CDT Narrative [facility] - 09/20/2024 1:45 PM CDT Reference range: 50-1200 mOsm/kg H2O, depending on fluid intake. Troy Jimenez MD URINE ORDERABLES Final Res ult Performing Organization Address [facility] Co de Phone Number [facility] CLIA # [id number] [address] [place] [id number] * (ABNORMAL) D-DIMER (09/20/2024 1:01 PM CDT) D-DIMER QUANT 10.17(H) 0.00 - 0.50 ug/mL FEU 09/20/2024 1:47 PM CDT [facility] Blood Venipuncture / Unknown 09/20/2024 1:01 PM CDT 09/20/2024 1:19 PM CDT Narrative [facility] - 09/20/2024 1:47 PM CDT D-Dimer assay cutoff value for exclusion of DVT and/or PE is <0.50 ug/mL FEU. Troy Jimenez MD HEMATOLOGY ORDERABLES Naina l Result Performing Organization Address [facility] Co de Phone Number [facility] CLIA # [id number] [address] [place] [id number] * CTA CHEST W AND/OR WO CONTRAST (09/20/2024 11:21 AM CDT) Anatomical Region Laterality Modality Chest Computed Tomogra phy 09/20/2024 11:0 9 AM CDT Impressions 09/20/2024 11:47 AM CDT IMPRESSION: 1. Small age-indeterminate nonocclusive subsegmental pulmonary embolism in the right lower lobe, which may be chronic; this is similar to the recent CT of the abdomen. No definitive additional pulmonary emboli within the limitations of respiratory motion artifact. 2. Interval development of small bilateral pleural effusions with increased bibasilar airspace disease, predominantly reflecting atelectasis however a superimposed developing pneumonia cannot be excluded. 3. Hepatic steatosis and partially visualized ascites in the upper abdomen. Narrative 09/20/2024 11:47 AM CDT EXAM: CTA CHEST W AND/OR WO CONTRAST DATE/TIME OF EXAM: 09/20/2024 11:21 AM REASON FOR EXAM: Pulmonary embolism (PE) suspected, low to intermediate prob, neg D-dimer, Subsegmnetal PE DIAGNOSIS: Alcohol-induced acute pancreatitis, unspecified complication status; History of alcohol use; Lactic acidosis COMPARISON: None TECHNIQUE: Following the administration of intravenous contrast axial CT images were obtained from the thoracic inlet through the adrenal glands to encompass the chest. Contrast timing bolus was optimized to evaluate the pulmonary arteries. Sagittal and coronal 2-D and MIP/3D re-formations were subsequently performed. FINDINGS: Thoracic inlet and chest wall: No acute findings. No suspicious lymphadenopathy. Mediastinum: No pathologically enlarged or morphologically suspicious lymph nodes. Heart and vessels: Heart size is normal. No pericardial effusion. Pulmonary arteries: A tiny nonocclusive subsegmental filling defect is suspected in the right lower lobe (series 4 measured 174) of uncertain chronicity; this could represent a small chronic residual pulmonary embolism. Otherwise no definitive occlusive or definitely acute embolic disease within the limitations of respiratory motion artifact which does partially obscure the subsegmental pulmonary arteries elsewhere. Lungs: Low lung volumes, respiratory motion artifact, and a small amount of consolidative and bandlike opacity in the dependent lungs. The upper lungs remain grossly clear. Pleura: Small bilateral pleural effusions. Upper abdomen: Partially visualized ascites. Abnormal appearance the liver compatible with hepatic steatosis which may be relatively severe. Soft tissues and Bones: No suspicious osseous lesions. Additional comments: None. Procedure Note Puma Guerra MD - 09/20/2024 EXAM: CTA CHEST W AND/OR WO CONTRAST DATE/TIME OF EXAM: 09/20/2024 11:21 AM REASON FOR EXAM: Pulmonary embolism (PE) suspected, low to intermediate prob, neg D-dimer, Subsegmnetal PE DIAGNOSIS: Alcohol-induced acute pancreatitis, unspecified complication status; History of alcohol use; Lactic acidosis COMPARISON: None TECHNIQUE: Following the administration of intravenous contrast axial CT images were obtained from the thoracic inlet through the adrenal glands to encompass the chest. Contrast timing bolus was optimized to evaluate the pulmonary arteries. Sagittal and coronal 2-D and MIP/3D re-formations were subsequently performed. FINDINGS: Thoracic inlet and chest wall: No acute findings. No suspicious lymphadenopathy. Mediastinum: No pathologically enlarged or morphologically suspicious lymph nodes. Heart and vessels: Heart size is normal. No pericardial effusion. Pulmonary arteries: A tiny nonocclusive subsegmental filling defect is suspected in the right lower lobe (series 4 measured 174) of uncertain chronicity; this could represent a small chronic residual pulmonary embolism. Otherwise no definitive occlusive or definitely acute embolic disease within the limitations of respiratory motion artifact which does partially obscure the subsegmental pulmonary arteries elsewhere. Lungs: Low lung volumes, respiratory motion artifact, and a small amount of consolidative and bandlike opacity in the dependent lungs. The upper lungs remain grossly clear. Pleura: Small bilateral pleural effusions. Upper abdomen: Partially visualized ascites. Abnormal appearance the liver compatible with hepatic steatosis which may be relatively severe. Soft tissues and Bones: No suspicious osseous lesions. Additional comments: None. IMPRESSION: 1. Small age-indeterminate nonocclusive subsegmental pulmonary embolism in the right lower lobe, which may be chronic; this is similar to the recent CT of the abdomen. No definitive additional pulmonary emboli within the limitations of respiratory motion artifact. 2. Interval development of small bilateral pleural effusions with increased bibasilar airspace disease, predominantly reflecting atelectasis however a superimposed developing pneumonia cannot be excluded. 3. Hepatic steatosis and partially visualized ascites in the upper abdomen. Moy Lawton MD CT ORDERABLES Final Result * URIC ACID (09/20/2024 3:48 AM CDT) URIC ACID 4.3 3.4 - 7.0 mg/dL 09/20/2024 12:44 PM CDT [facility] Blood Venipuncture / Unknown 09/20/2024 3:48 AM CDT 09/20/2024 4:23 AM CDT Troy Jimenez MD CHEMISTRY ORDERABLES Final Result [facility] CLIA # [id number] [address] [place] [address] [place] [address] * CORTISOL LEVEL (09/20/2024 3:48 AM CDT) CORTISOL LEVEL 9.5 ug/dL 09/20/2024 12:44 PM CDT [facility] Comment: Cortisol Reference Range Morning Hours 6-10 a.m. 6.0-18.4 ug/dL Afternoon Hours 4-8 p.m. 2.7-10.5 ug/dL Blood Venipuncture / Unknown 09/20/2024 3:48 AM CDT 09/20/2024 4:23 AM CDT us Troy Jimenez MD CHEMISTRY ORDERABLES Final Result [facility] CLIA # [id number] [address] [place] [address] * (ABNORMAL) BASIC METABOLIC PANEL (09/20/2024 3:48 AM CDT) Only the most recent of4 resultswithin the time period is included. SODIUM 129(L) 136 - 145 mmol/L 09/20/2024 4:59 AM T [facility] POTASSIUM 3.7 3.5 - 5.1 mmol/L 09/20/2024 4:59 AM CDT [facility] CHLORIDE 97(L) 98 - 107 mmol/L 09/20/2024 4:59 AM T [facility] CO2 21(L) 22 - 29 mmol/L 09/20/2024 4:59 AM CDT [facility] CALCIUM 7.8(L) 8.6 - 10.0 mg/dL 09/20/2024 4:59 AM CDT [facility] BUN 6 6 - 20 mg/dL 09/20/2024 4:59 AM CDT [facility] CREATININE 1.12 0.67 - 1.17 mg/dL 09/20/2024 4:59 AM CDT [facility] GLUCOSE 118(H) 74 - 99 mg/dL 09/20/2024 4:59 AM CDT [facility] GFR >60 >=60 mL/min/1.7 3 sq meter 09/20/2024 4:59 AM CDT [facility] Comment:eGFR calculated with 2020 CKD-EPI equation. Vegetarian diet, extremely high or low muscle mass, and may affect results. Cystatin C with Glomerular Filtration Rate is a suitable alternative for these patients. ANION GAP 11 9 - 20 mmol/L 09/20/2024 4:59 AM CDT [facility] Blood Venipuncture / Unknown 09/20/2024 3:48 AM CDT 09/20/2024 4:23 AM CDT us Moy Lawton MD CHEMISTRY ORDERABLES Final Resu lt Performing Organization Address City/State/[facility] Co de Phone Number [facility] CLIA # [id number] [address] [address] * US VENOUS DOPPLER LEG BILATERAL (09/19/2024 3:12 PM CDT) Anatomical Region Laterality Modality Lower Extremity Ultrasound 09/19/2024 2:43 PM CDT Narrative 09/24/2024 12:25 PM CDT [facility] Noninvasive Vascular Laboratory [address] [place] [address] Noninvasive Vascular Lab Venous Exam Complete Lower Extremity Duplex Patient: Patrica Garrett Study ID: US VENOUS DOPPLE Gender: M : 1980 Age: 44 Room: Height: Weight: BSA: Pt status: Inpatient Study Date: 09/19/2024 Study Time: 02:43:56 PM BSA: Ordering: Moy Lawton Interpreting:Kandy Ramos Cylinder Block Hole Reliner: Alla Laguna RVT Indications: R/O DVT. Summary Impression: No evidence of deep or superficial venous thrombosis involving the right lower extremity and left lower extremity. Study data: Complete lower extremity venous duplex evaluation. Doppler flow study including spectral analysis, color and bonilla scale imaging. Location: Bedside. Patient status: Inpatient. Study status: Routine. Procedure: A vascular evaluation was performed. Image quality was good. Venous flow and imaging: - Right common femoral Patent; Normal phasicity; spontaneous; compressible; normal augmentation - Right profunda femoral Patent; Normal phasicity; spontaneous; compressible; normal augmentation - Right femoral Patent; Normal phasicity; spontaneous; compressible; normal augmentation - Right popliteal Patent; Normal phasicity; spontaneous; compressible; normal augmentation - Right small saphenous Patent; Normal phasicity; spontaneous; compressible; normal augmentation - Right posterior tibial Patent; Compressible; normal augmentation - Right peroneal Patent; Compressible; normal augmentation - Right great saphenous Patent; Normal phasicity; spontaneous; compressible; normal augmentation - Left common femoral Patent; Normal phasicity; spontaneous; compressible; normal augmentation - Left profunda femoral Patent; Normal phasicity; spontaneous; compressible; normal augmentation - Left femoral Patent; Normal phasicity; spontaneous; compressible; normal augmentation - Left popliteal Patent; Normal phasicity; spontaneous; compressible; normal augmentation - Left small saphenous Patent; Normal phasicity; spontaneous; compressible; normal augmentation - Left posterior tibial Patent; Compressible; normal augmentation - Left peroneal Patent; Compressible; normal augmentation - Left great saphenous Patent; Normal phasicity; spontaneous; compressible; normal augmentation [facility] Vascular Lab is accredited with the Intersocietal Commission for the Accreditation of Vascular Laboratories (ICAVL) Prepared and Electronically Authenticated Kandy Ramos Confirmed 09/24/2024 12:25 Procedure Note Kandy Ramos DO - 09/24/2024 [facility] Noninvasive Vascular Laboratory [address] [place] [address] Noninvasive Vascular Lab Venous Exam Complete Lower Extremity Duplex Patient: Patrica Garrett Study ID: US VENOUS DOPPLE Gender: M : 1980 Age: 44 Room: Height: Weight: BSA: Pt status: Inpatient Study Date: 09/19/2024 Study Time: 02:43:56 PM BSA: Ordering: Moy Lawton Interpreting:Kandy Ramos Cylinder Block Hole Reliner: Alla Laguna RVT Indications: R/O DVT. Summary Impression: No evidence of deep or superficial venous thrombosis involving the rightlower extremity and left lower extremity. Study data: Complete lower extremity venous duplex evaluation.Doppler flow study including spectral analysis, color and bonilla scale imaging. Location: Bedside. Patient status: Inpatient. Study status:Routine. Procedure: A vascular evaluation was performed. Image quality was good. Venous flow and imaging: - Right common femoral Patent; Normal phasicity; spontaneous;compressible; normal augmentation - Right profunda femoral Patent; Normal phasicity; spontaneous;compressible; normal augmentation - Right femoral Patent; Normal phasicity; spontaneous; compressible;normal augmentation - Right popliteal Patent; Normal phasicity; spontaneous; compressible;normal augmentation - Right small saphenous Patent; Normal phasicity; spontaneous;compressible; normal augmentation - Right posterior tibial Patent; Compressible; normal augmentation - Right peroneal Patent; Compressible; normal augmentation - Right great saphenous Patent; Normal phasicity; spontaneous;compressible; normal augmentation - Left common femoral Patent; Normal phasicity; spontaneous;compressible; normal augmentation - Left profunda femoral Patent; Normal phasicity; spontaneous;compressible; normal augmentation - Left femoral Patent; Normal phasicity; spontaneous; compressible;normal augmentation - Left popliteal Patent; Normal phasicity; spontaneous; compressible;normal augmentation - Left small saphenous Patent; Normal phasicity; spontaneous;compressible; normal augmentation - Left posterior tibial Patent; Compressible; normal augmentation - Left peroneal Patent; Compressible; normal augmentation - Left great saphenous Patent; Normal phasicity; spontaneous;compressible; normal augmentation [facility] Lab is accredited with theIntersocietal Commission for the Accreditation of Vascular Laboratories (ICAVL) Prepared and Electronically Authenticated Kandy Ramos Confirmed 09/24/2024 12:25 us Moy Lawton MD ORDERABLES Final Result * (ABNORMAL) LACTIC ACID (09/17/2024 11:49 PM CDT) Only the most recent of2 resultswithin the time period is included. LACTIC ACID 2.8(H) <=2.0 mmol/L 09/18/2024 12:16 AM CDT [facility] Blood Venipuncture / Unknown 09/17/2024 11:49 PM CDT 09/17/2024 11:52 PM CDT us Krzysztof Anaya DO CHEMISTRY ORDERABLES Fi nal Result [facility] CLIA # [id number] [address] [facility] [place] [address] * US RIGHT UPR QUADRANT (09/17/2024 10:30 PM CDT) Anatomical Region Laterality Modality Abdomen Ultrasound 09/17/2024 10:3 0 PM CDT Impressions 09/17/2024 10:57 PM CDT IMPRESSION: 1. Question of retroperitoneal edema surrounding the pancreas. 2. No definite gallstones or bile duct dilatation. 3. Hepatic steatosis. Narrative 09/17/2024 10:57 PM CDT EXAM: US RIGHT UPR QUADRANT DATE/TIME OF EXAM: 09/17/2024 10:30 PM REASON FOR EXAM: Abdominal Pain Epigastric DIAGNOSIS: See Reason for Exam COMPARISON: None. TECHNIQUE: Multiplanar real-time ultrasonography of the abdomen using bonilla-scale imaging, supplemented by color, power, and spectral Doppler as needed. FINDINGS: Pancreas: Limited visualization of the pancreas with suggestion of peripancreatic edema in the retroperitoneum. The pancreatic head otherwise appears sonographically within normal limits. Liver: Abnormally echogenic liver parenchyma suggestive of hepatic steatosis. Assessment for focal liver lesion is limited by the steatosis, however no suspicious mass is identified. Gallbladder: No evidence of gallstones or biliary sludge. No gallbladder wall thickening. Negative sonographic Pham's sign. Biliary: Intrahepatic and extrahepatic bile ducts are nondilated. Right Kidney: Normal contour and echogenicity. No hydronephrosis. Measures 12.3 cm in length. Peritoneum: No visible ascites. Procedure Note Puma Guerra MD - 09/17/2024 EXAM: US RIGHT UPR QUADRANT DATE/TIME OF EXAM: 09/17/2024 10:30 PM REASON FOR EXAM: Abdominal Pain Epigastric DIAGNOSIS: See Reason for Exam COMPARISON: None. TECHNIQUE: Multiplanar real-time ultrasonography of the abdomen using bonilla-scale imaging, supplemented by color, power, and spectral Doppler as needed. FINDINGS: Pancreas: Limited visualization of the pancreas with suggestion of peripancreatic edema in the retroperitoneum. The pancreatic head otherwise appears sonographically within normal limits. Liver: Abnormally echogenic liver parenchyma suggestive of hepatic steatosis. Assessment for focal liver lesion is limited by the steatosis, however no suspicious mass is identified. Gallbladder: No evidence of gallstones or biliary sludge. No gallbladder wall thickening. Negative sonographic Pham's sign. Biliary: Intrahepatic and extrahepatic bile ducts are nondilated. Right Kidney: Normal contour and echogenicity. No hydronephrosis. Measures 12.3 cm in length. Peritoneum: No visible ascites. IMPRESSION: 1. Question of retroperitoneal edema surrounding the pancreas. 2. No definite gallstones or bile duct dilatation. 3. Hepatic steatosis. Krzysztof Anaya DO US ORDERABLES Final R esult * EXTRA TUBE (URINE BONILLA) (09/17/2024 9:30 PM CDT) Urine URINE SPECIMEN OBTAINED BY CLEAN CATCH PROCEDURE / Unknown Collection / Unknown 09/17/2024 9:30 PM CDT 09/17/2024 9:35 PM CDT Krzysztof Anaya DO URINE ORDERABLES Final Result [facility] CLIA # [id number] [address] [place] [address] [place], [place] [address] * (ABNORMAL) DRUG SCREEN, URINE (09/17/2024 9:30 PM CDT) AMPHETAMINE QUAL, URINE Negative Negative 09/17/2024 10:44 PM CDT [facility] BARBITURATE QUAL, URINE Negative Negative 09/17/2024 10:44 PM CDT [facility] BENZODIAZEPINE QUAL, URINE Presumptive Positive(A) Negative 09/17/2024 10:44 PM CDT [facility] COCAINE QUAL URINE Negative Negative 09/17/2024 10:44 PM CDT [facility] OPIATE QUAL, URINE Negative Negative 09/17/2024 10:44 PM CDT [facility] CANNABINOIDS QUAL, URINE Negative Negative 09/17/2024 10:44 PM CDT [facility] OXYCODONE QUAL, URINE Negative Negative 09/17/2024 10:44 PM CDT [facility] METHADONE QUAL, URINE Negative Negative 09/17/2024 10:44 PM CDT [facility] FENTANYL QUAL, URINE Negative Negative 09/17/2024 10:44 PM CDT [facility] CREATININE, URINE 401.2(H) 40.0 - 278.0 mg/dL 09/17/2024 10:44 PM CDT [facility] Comment:Reference Range vari es with fluid intake and diet. Urine URINE SPECIMEN OBTAINED BY CLEAN CATCH PROCEDURE / Unknown Collection / Unknown 09/17/2024 9:30 PM CDT 09/17/2024 9:37 PM CDT Narrative [facility] - 09/17/2024 10:44 PM CDT This test is a qualitative screen. The presumptive positive results should not be used for legal purposes. If confirmation of results is desired, the lab must be contacted without delay. Drug Ref. Range Screening Threshold Amphetamines Negative 500 ng/mL Barbiturates Negative 200 ng/mL Benzodiazepines Negative 100 ng/mL Cannabinoids Negative 50 ng/mL Cocaine Metabolite Negative 300 ng/mL Opiate Negative 300 ng/mL Oxycodone Negative 100 ng/mL Methadone Negative 300 ng/mL Fentanyl Negative 5 ng/mL Krzysztof Anaya DO URINE ORDERABLES Final Result [facility] CLIA # [id number] [facility] [address] * (ABNORMAL) URINALYSIS WITH REFLEX MICROSCOPIC (09/17/2024 9:30 PM CDT) COLOR UA Yellow Pale to Dark Yellow 09/17/2024 10:08 PM CDT [facility] CLARITY UA Clear Clear 09/17/2024 10:08 PM [facility] SPECIFIC GRAVITY UA 1.030 1.003 - 1.035 09/17/2024 10:08 PM [facility] PH UA 6.5 5.0 - 8.0 09/17/2024 10:08 PM [facility] LEUKOCYTE ESTERASE UA Negative Negative 09/17/2024 10:08 PM [facility] NITRITE UA Negative Negative 09/17/2024 10:08 PM [facility] PROTEIN UA 1+(A) Negative 09/17/2024 10:08 PM [facility] GLUCOSE UA Negative Negative 09/17/2024 10:08 PM [facility] KETONES UA Trace(A) Negative 09/17/2024 10:08 PM [facility] UROBILINOGEN UA <2.0 <2.0 mg/dL 10:08 PM [facility] BILIRUBIN UA Negative Negative 09/17/2024 10:08 PM [facility] BLOOD UA Negative Negative 09/17/2024 10:08 PM [facility] WBC UA 0-2 0 - 2 /hpf 09/17/2024 10:08 PM [facility] RBC UA 0-2 0 - 2 /hpf 09/17/2024 10:08 PM [facility] BACTERIA UA Negative Negative /hpf 09/17/2024 10:08 PM [facility] EPITHELIAL CELLS, URINE 0-5 0 - 5 /hpf 09/17/2024 10:08 PM [facility] HYALINE CAST 11-25(A) None Seen, 0-2 /lpf 09/17/2024 10:08 PM [facility] Urine URINE SPECIMEN OBTAINED BY CLEAN CATCH PROCEDURE / Unknown Collection / Unknown 09/17/2024 9:30 PM CDT 09/17/2024 9:35 PM CDT Krzysztof Anaya DO URINE ORDERABLES Final Result [facility] # [id number] [facility] [address] [place] [address] * XR CHEST PA OR AP 1 VW (09/17/2024 8:53 PM CDT) Anatomical Region Laterality Modality Chest Computed Radiogr aphy 09/17/2024 8:53 PM CDT Impressions 09/17/2024 9:25 PM CDT IMPRESSION: No evidence of acute cardiopulmonary disease. Narrative 09/17/2024 9:25 PM CDT EXAM: XR CHEST PA OR AP 1 VW DATE/TIME OF EXAM: 09/17/2024 8:53 PM REASON FOR EXAM: Difficulty Breathing DIAGNOSIS: See Reason for Exam COMPARISON: None. FINDINGS: - Lines/tubes: None. - Cardiomediastinal: Contours are within normal limits. - Lungs/pleura: Radiographically the lungs appear clear. Hemidiaphragms are well visualized; no appreciable pleural effusion or pneumothorax. - Bones and soft tissues: No acute abnormalities. - Additional comments: None. Procedure Note Puma Guerra MD - 09/17/2024 EXAM: XR CHEST PA OR AP 1 VW DATE/TIME OF EXAM: 09/17/2024 8:53 PM REASON FOR EXAM: Difficulty Breathing DIAGNOSIS: See Reason for Exam COMPARISON: None. FINDINGS: - Lines/tubes: None. - Cardiomediastinal: Contours are within normal limits. - Lungs/pleura: Radiographically the lungs appear clear. Hemidiaphragms are well visualized; no appreciable pleural effusion or pneumothorax. - Bones and soft tissues: No acute abnormalities. - Additional comments: None. IMPRESSION: No evidence of acute cardiopulmonary disease. us Krzysztof Anaya DO DIAGNOSTIC IMAGING ORDE RABLES Final Result * EXTRA TUBE (LAV) (09/17/2024 7:14 PM CDT) Blood Venipuncture / Unknown 09/17/2024 7:14 PM CDT 09/17/2024 7:23 PM CDT us Radha L Harrison DIE CASTER HEMATOLOGY ORDERABLES Final Re sult Performing Organization Address [facility] Co de Phone Number [facility] CLIA # [id number] [address] [id number] * TSH REFLEXIVE (09/17/2024 7:14 PM CDT) TSH 0.76 0.27 - 4.20 uIU/mL 09/17/2024 8:24 PM CDT [facility] Blood Venipuncture / Unknown 09/17/2024 7:14 PM CDT 09/17/2024 7:18 PM CDT Radha Harrison DIE CASTER CHEMISTRY ORDERABLES Final Res ult Performing Organization Address [facility] Co de Phone Number [facility] CLIA # [id number] [address] [place], [place] [id number] * KETONES/BETA HYDROXYBUTYRATE (09/17/2024 7:14 PM CDT) BETA HYDROXYBUTYRATE 0.2 0.0 - 0.3 mmol/L 09/17/2024 11:22 PM CDT [facility] Blood Venipuncture / Unknown 09/17/2024 7:14 PM CDT 09/17/2024 7:21 PM CDT Krzysztof Anaya DO CHEMISTRY ORDERABLES Fi nal Result Performing Organization Address [facility] Co de Phone Number [facility] CLIA # [id number] [address] [facility] [place] [id number] * MAGNESIUM LEVEL (09/17/2024 7:14 PM CDT) MAGNESIUM 1.7 1.6 - 2.6 mg/dL 09/17/2024 8:56 PM CDT [facility] Blood Venipuncture / Unknown 09/17/2024 7:14 PM CDT 09/17/2024 7:21 PM CDT Krzysztof Anaya DO CHEMISTRY ORDERABLES Fi nal Result Performing Organization Address [facility] de Phone Number [facility] CLIA # [id number] [address] [address] * (ABNORMAL) LIPASE (09/17/2024 7:14 PM CDT) LIPASE 779(H) 13 - 60 U/L 09/17/2024 8:21 PM CDT [facility] Blood Venipuncture / Unknown 09/17/2024 7:14 PM CDT 09/17/2024 7:21 PM CDT us Radha Harrison DIE CASTER CHEMISTRY ORDERABLES Final Res ult Performing Organization Address [facility] de Phone Number [facility] CLIA # [id number] [address] [id number] * ETHANOL LEVEL (09/17/2024 7:14 PM CDT) ETHANOL <10.10 <10.10 mg/dL 09/17/2024 8:45 PM CDT [facility] ETHANOL % <0.01 <=0.01 %w/v 09/17/2024 8:45 PM CDT [facility] Blood Venipuncture / Unknown 09/17/2024 7:14 PM CDT 09/17/2024 7:21 PM CDT Krzysztof Anaya DO CHEMISTRY ORDERABLES Fi nal Result Performing Organization Address [facility] Co de Phone Number [facility] CLIA # [id number] [facility] [address] * Critical Care (09/17/2024 4:55 PM CDT) Narrative Krzysztof Anaya DO - 09/17/2024 4:55 PM CDT Krzysztof Anaya DO 09/17/2024 11:59 PM Critical Care Performed by: Krzysztof Anaya DO Authorized by: Krzysztof Anaya DO Critical care provider statement: Critical care time (minutes): 45 Critical care time was exclusive of: Separately billable procedures and treating other patients and teaching time Critical care was necessary to treat or prevent imminent or life-threatening deterioration of the following conditions: Endocrine crisis (Alcohol abuse, pancreatitis, tachycardia, lactic acidosis, multiple medications required) Critical care was time spent personally by me on the following activities: Review of old charts, re-evaluation of patient's condition, pulse oximetry, examination of patient, discussions with consultants, evaluation of patient's response to treatment, obtaining history from patient or surrogate, ordering and performing treatments and interventions, ordering and review of laboratory studies and ordering and review of radiographic studies I assumed direction of critical care for this patient from another provider in my specialty: no Care discussed with: admitting provider Krzysztof Anaya DO PROCEDURE/MINOR SURGICA L ORDERABLES Final Result from Last 3 Months Insurance [facility] MEDICAID Advance Directives For more information, please contact: [phone] * Full Code (Latest Code Status on File) Date Activated Date Inactivated Comments 09/17/2024 11:46 PM 10/01/2024 8:18 PM
--- OUTSIDE RECORDS SUMMARY | 2024-11-20 09:47 | XMS_ITS | Encounter Summary ---
Author Organization [facility] Address [address] [place] [address] Care Team Providers Care Dicer Operator Name Role Phone Unavailable Primary Care Provider Unavailabl e Encounter Details Date Type Department Care Team (Late st Contact Info) Description 11/13/2024 External Device Data [facility] ABSTRACTION [...]
== END 2024-11-18 13:37 | disposition home or self-care (01) ==
PROVIDERS: Emergency Provider Emergency Medicine; PCP Family Medicine
DX: H53.452 Other localized visual field defect, left eye (principal); R51.9 Headache, unspecified; Z87.891 Personal history of nicotine dependence; I12.9 Hypertensive chronic kidney disease with stage 1 through stage 4 chronic kidney disease, or unspecified chronic kidney disease; N18.2 Chronic kidney disease, stage 2 (mild)
CPT/HCPCS: 36415; 70450; 70480; 80053; 85025; 85651; 86140; 90715; 93005; 99284; J9999

== ENCOUNTER 2024-12-06 14:45 | Emergency (ER) | payer BC, MEDICAID, SELFPAY ==
--- OUTSIDE RECORDS SUMMARY | 2014-07-04 11:54 | XMS_ITS | Continuity of Care Document ---
Author Organization [employer] Address [address] [place] [address] Phone Care Team Providers Care Tire Mold Engraver Name Role Phone Barbara Dove MSN, WHNP-BC, [...] Diagnoses Date Provider Providers Copied on Encounter [facility], [address], [place], [address] , [place] tel: [phone] 03 [facility] Medical No Information 5 Barbara Riggins. [address] , [address], [place], [place], [address] , [place]. tel: [phone] [facility], [address], [place], [address] , [place] tel: [phone] 03 [facility] Dental Dental examination 5 Rosa Blankenship. [address], [address], [place], [place], [address] , [place]. tel:[phone] OFFICE/OUTPA TIENT VISIT, [facility], [address], [place], [address] , [place] tel: [phone] 03 [facility] Medical hypertension (chief complaint)cou gh (chief complaint)dep ression (chief complaint) Bipolar disorder, unspecifiedHyper tension, UnspecifiedCough 4 Rolando Krishnamurthy MD. [address], [address], [place], [place], [address] , [place]. tel: [phone] OFFICE/OUTPA TIENT VISIT, [facility], [address], [place], [address] , [place] tel: [phone] 03 [facility] Medical fever (chief complaint)cou gh (chief complaint) FeverFlu-like symptomsDehydrat ion, mild Dec-0 2 4 Estella Powell. [address] , [address], [place], [place], [address] , [place]. tel: [phone] [facility], [facility]., [address], [place], [address] , [place] tel: [phone] 03 [facility] Dental Dental examination Dec-0 4 Rosa Blankenship. [address], [address], [place], [place], [address] , [place]. tel: [phone] [facility], [address] [place] [address], [id number] , [place] tel: [phone] 03 [facility] Dental 4 Rosa Blankenship. [address] , [facility] [address], [place], [place], [address] , [place]. tel: [phone] [facility], [address], [place], [address] , [place] tel: [phone] 03 [facility] Dental Dental examination 4 Rosa Blankenship. [address] , [address], [place], [place], [address] , [place]. tel: [phone] PSY DX INTERVIEW WITHOUT MEDICAL [facility], [address] [place] [address], [id number] , [place] tel: [phone] 03 [facility] Behavioral stressed (chief complaint)anx iety (chief complaint)sle ep disturbance (chief complaint) Bipolar disorder, unspecifiedAnxie ty Jul-2 4 Shelly Franco. [address], [place], [address] , [place]. tel: [phone] [facility], [facility] [address] [place], [address] , [place] tel: [phone] 03 [facility] Dental Dental examination Jul- 4 Rosa Blankenship. [address], [address], [place], [place], [address] , [place]. tel: [phone] OFFICE/OUTPA TIENT VISIT, [facility], [facility]., [address], [place], [address] , [place] tel: [phone] 03 [facility] Medical hypertension (chief complaint) OverweightHypert ension, Unspecified 4 Barbara Riggins. [address] , [address], [place], [place], [address] , [place]. tel: [phone] [facility], [facility]., [address], [place], [address] , [place] tel: [phone] 03 [facility] Medical No Information 4 Barbara Riggins. [address] , [address], [place], [place], [address] , [place]. tel: [phone] OFFICE/OUTPA TIENT VISIT, [facility], [facility]., [address], [place], [address] , [place] tel: [phone] 03 [facility] Medical hypertension (chief complaint) Hypertension, UnspecifiedOverw eightAnxiety 4 Barbara Riggins. [address] , [address], [place], [place], [address] , [place]. tel: [phone] Family History Family Member Type Diagnosis Age At Onset Father Problem (finding) hypertension Father Problem (finding) No Family hist ory of No history of Other Paternal grandfather Problem (finding) Heart disease Paternal grandfather Problem (finding) hypertension Payers Payer name Insurance type Covered green party ID Authoriza tion(s) No Information Social [...]
--- OUTSIDE RECORDS SUMMARY | 2024-08-05 05:00 | XMS_ITS ---
Author Organization [facility] Address [address], [place] [id number] Care Team Providers Care Printing Grey Cloth Tender Name Role Phone Shereen BIRD, Ronan Unavailable [phone] Ricardo BIRD, Naman Unavailable Unavailable Harmony Mascorro Unavailable [phone] Allergies Allergen (clinical drug ingredient) Drug/Non Drug [...] Location Date Provider Diagnosis [facility] [address], [place] [id number] 08/05/2024 Harmony Urena Other senior care (current) drug therapy Z79.899 Assessments Encounter Date Diagnosis (ICD Code) Assessment Notes Treatment Notes Treatment Clinical Notes Section Notes 08/05/2024 Other senior care (current) drug therapy (ICD-10 - Z79.899) Patient [...] Of Treatment Treatment Notes Assessment Notes Other terminal block assembler (current) drug therapy Patient was given a [...] Notes * Elmer GARRETTOB:1980 (44 yo M)Acc No.[id number]:08/05/2024 Patient: Andrade BAUMANN Provider: FRANKY Elmore :1980 A ge:44 Y S ex:Male Date:08/05/2024 Address:[address] [place] [address] Subjective: * Chief Complaints: * 1 . [...] months Assessment: * Assessment: 1. O ther senior care (current) drug therapy - Z79.899 (Primary) Plan: * Treatment: * Preventive Medicine: Counseling: P ain Management: Follow-up Plan documented: Y es Pain Screening: * * Images: * Electronic signature of Kandice Urena CONTROL ROOM HELPER on 12/06/2024 at 02:48 PM CDT Sign off status: Pending * Provider: FRANKY Elmore Date: 0 08/05/2024 Generated for Pauline rooney/Tucker/Sandra on: 0 12/06/2024 02:48 PM CDT History and Physical Notes * HPI (History of Present Illness) Category Sub-Category Detail Notes Category Not es Lumbar Spine pain in the lower back Cervical Spine pain in the neck Thoracic Spine pain in the mid back Sacro-Iliac / Coccyx pain * Medications Previous Therapy Previous therapy: anthropologist physical apy with benefit (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 injections [...] scanned documents Physician/Clinic notes Notes received from: [facility]; see scanned documents
--- OUTSIDE RECORDS SUMMARY | 2024-11-20 11:16 | XMS_ITS | Continuity of Care Document ---
Author Organization [facility] Address [address] [place] [phone] Phone Care Team Providers Care Wire Preparation Machine Tender Name Role Phone Unavailable Unavailable Unavailable Allergies, Adverse Reactions, Alerts Substance Reaction Status Criticality CIPROFLOXACIN HCL Active No Informa tion ciprofloxacin Active No Information Problems Condition Type Effective Dates (start - stop) Clini enoc Status Comments No Known Problems Advance Directives Directive Yes / No Effective Date File Name No Information Encounters Encounter Description Practice Location Reason(s) For Visit Diagnoses Date Provider [facility], [address] [place], [id number], tel:[phone] [address] [facility] No Information No Information [facility], [address] [place] [address], [id number], tel:[phone] [facility] Labs (chief complaint) No Information [facility]. [address] [place], [address], . tel:[phone] [facility], [address] [place] [address], [id number], tel:[phone] 4784 [facility] Establish Care (chief complaint)U [place] (chief complaint) [...] Comments Sex Male Smoking Status No Information Gender Identity Male Chief Complaint And Reason For Visit No Information Plan Of Treatment Date Type Action Status Goal Tdap. Due on due Goal Td vaccine. Due on 17 due Goal Flu Vaccine. Due on 017 due Goal Tdap. Due on due Goal Td vaccine. Due on 17 due Goal Flu Vaccine. Due on 017 due Goal Dietary manageme nt education, guidance, [...] cramps. Instructions Date Instruction Additional Infor alexander Dec-14-2017 exercise as discusse dconsider massage and chiropractic therapy Related to Chronic midline low back pain with bilateral sciatica Get plenty of rest i f you feel tired. Take an mqoe-pbj-zreuyul pain medicine if needed, such as acetaminophen (Tylenol), ibuprofen (Advil, Motrin), or naproxen (Aleve). Read and follow all instructions on the label. Be careful when taking nfor-rtx-[id number] cold or flu medicines and Tylenol at [...] hours Related to Fever in other diseases Giving encouragement to exercise Related to Body mass index (BMI) 27.0-27.9, adult Dietary management e ducation, guidance, and counseling Related to Body mass index (BMI) 27.0-27.9, adult Assessments Type Assessment Date No Information
--- OUTSIDE RECORDS SUMMARY | 2024-12-06 14:49 | XMS_ITS | Clinical Summary ---
Author Organization [facility] Address [address] [place] [address] Phone Care Team Providers Care Digital Commentator Name Role Phone Unavailable Primary Care Provider [...] Daily Amount: 8 mg 20 Tablet Active bcamcf-gupoyoih-f kvnglase (CREON) 36,000-114,000-18 0,000 unit capsule Take 2 [...] Encounters Date Type Department Care Team Description 12/04/2024 External Device Data [facility] ABSTRACTION Provider, Abstract 11/27/2024 External Device Data [facility] ABSTRACTION Provider, Abstract 11/13/2024 External Device Data [facility] ABSTRACTION Provider, [...] - 10/01/2024 5:58 PM CDT Hospital Encounter [facility] 3D Medical Telemetry [address] [place] [phone] Krzysztof Anaya, DO King, MD Jered Bailey Talha, MD Bandaru, Kiran Babu, MD Acute pancreatitis Discharge Disposition: Home or Self Care 09/17/2024 Travel from Last 3 Months Social History Tobacco Use Types Packs/Day Years Used Date Smoking Tobacco: Former Cigarettes Tobacco Cessation:Counseling Given: Not Answered Feeling Safe Answer Date Recorded Are you in a relationship wi th someone who hurts you emotionally and/or physically? No 09/18/2024 Food Insecurity Answer Date Recorded Patient needs follow up regardin 09/18/2024 Transportation Needs Answer Date Record ed Patient needs follow up regardin 09/18/2024 Utility Needs Answer Date Recorded Patient needs follow up regardin 09/18/2024 Sex and Gender Information Value Date Recorded [...] Done Comments Pre-Diabetes and Diabetes Screening 1980 DTAP/TDAP/TD VACCINES (1 - Tdap) 07/24/1999 HEPATITIS B VACCINES (1 of 3 - 19+ 3-dose series) 07/09 HPV VACCINES (1 - 3-dose SCDM series) 07/24/2007 INFLUENZA VACCINE (#1) 2024 Procedures Procedure Name [...] of15 resultswithin the time period is included. WBC 12.2(H) 4.5 - 11.0 K/uL 10/01/2024 5:19 AM [facility] RBC 4.03(L) 4.60 - 6.20 M/uL 10/01/2024 5:19 AM [facility] HEMOGLOBIN 13.5(L) 14.0 - 18.0 g/dL 10/01/2024 5:19 AM [facility] HEMATOCRIT 39.3(L) 41.0 - 53.0 % 10/01/2024 5:19 AM [facility] MCV 97.5 84.0 - 103.0 fL 10/01/2024 5:19 AM [facility] MCH 33.5 27.0 - 34.0 pg 10/01/2024 5:19 AM [facility] MCHC 34.4 30.0 - 35.0 g/dL 10/01/2024 5:19 AM [facility] PLATELETS 822(H) 140 - 440 K/uL 10/01/2024 5:19 AM [facility] MPV 8.5(L) 8.9 - 12.8 fL 10/01/2024 5:19 AM [facility] RDW 15.7(H) 11.0 - 14.5 % 10/01/2024 5:19 AM [facility] RDW-STDEV 56.9(H) 37.0 - 54.0 fL 10/01/2024 5:19 AM [facility] NEUTROPHILS 65 42 - 75 % 10/01/2024 5:19 AM [facility] LYMPHOCYTES 24 24 - 44 % 10/01/2024 5:19 AM [facility] MONOCYTES 7 2 - 10 % 10/01/2024 5:19 AM [facility] EOSINOPHILS 3 0 - 7 % 10/01/2024 5:19 AM [facility] BASOPHILS 1 0 - 1 % 10/01/2024 5:19 AM [facility] IMMATURE GRANULOCYTES 1 0 - 2 % 10/01/2024 5:19 AM CDT [facility] NEUTROPHIL ABSOLUTE 7.89 2.00 - 8.00 K/uL 10/01/2024 5:19 AM CDT [facility] LYMPHOCYTE ABSOLUTE 2.92 1.20 - 4.00 K/uL 10/01/2024 5:19 AM CDT [facility] MONOCYTE ABSOLUTE 0.81(H) 0.10 - 0.60 K/uL 10/01/2024 5:19 AM CDT [facility] EOSINOPHIL ABSOLUTE 0.40 0.00 - 0.70 K/uL 10/01/2024 5:19 AM CDT [facility] BASOPHILS ABSOLUTE 0.07 0.00 - 0.20 K/uL 10/01/2024 5:19 AM CDT [facility] IMMATURE GRANULOCYTES ABSOLUTE 0.10 0.00 - 0.10 K/uL 10/01/2024 5:19 AM CDT [facility] SMEAR REVIEWED: NA - Not Applicable 10/01/2024 5:19 AM T [facility] Blood Venipuncture / Unknown 10/01/2024 4:41 AM CDT 10/01/2024 5:11 AM CDT us Troy Jimenez MD HEMATOLOGY ORDERABLES Naina l Result [facility] CLIA # [id number] [address] [place] [address] * (ABNORMAL) COMPREHENSIVE METABOLIC PANEL (10/01/2024 4:41 AM CDT) Only the most recent of12 resultswithin the time period is included. SODIUM 140 136 - 145 mmol/L 10/01/2024 5:46 AM CDT [facility] POTASSIUM 3.7 3.5 - 5.1 mmol/L 10/01/2024 5:46 AM CDT [facility] CHLORIDE 105 98 - 107 mmol/L 10/01/2024 5:46 AM [facility] CO2 24 22 - 29 mmol/L 10/01/2024 5:46 AM [facility] CALCIUM 8.7 8.6 - 10.0 mg/dL 10/01/2024 5:46 AM [facility] BUN 4(L) 6 - 20 mg/dL 10/01/2024 5:46 AM [facility] CREATININE 0.88 0.67 - 1.17 mg/dL 10/01/2024 5:46 AM [facility] GLUCOSE 119(H) 74 - 99 mg/dL 10/01/2024 5:46 AM [facility] TOTAL PROTEIN 6.4 6.4 - 8.3 g/dL 10/01/2024 5:46 AM [facility] ALBUMIN 3.2(L) 3.5 - 5.2 g/dL 10/01/2024 5:46 AM [facility] BILIRUBIN TOTAL 0.3 0.0 - 1.0 mg/dL 10/01/2024 5:46 AM [facility] ALKALINE PHOSPHATASE 55 40 - 129 U/L 10/01/2024 5:46 AM [facility] AST 20 10 - 50 U/L 10/01/2024 5:46 AM [facility] ALT 18 <=50 U/L 10/01/2024 5:46 AM [facility] GFR >60 >=60 mL/min/1.7 3 sq meter 10/01/2024 5:46 AM [facility] Comment:eGFR calculated with 2020 CKD-EPI equation. Vegetarian diet, extremely high or low muscle mass, and may affect results. Cystatin C with Glomerular Filtration Rate is a suitable alternative for these patients. ANION GAP 11 9 - 20 mmol/L 10/01/2024 5:46 AM [facility] Blood Venipuncture / Unknown 10/01/2024 4:41 AM CDT 10/01/2024 5:11 AM CDT us Troy Jimenez MD CHEMISTRY ORDERABLES Final Result [facility] # [id number] [id number] [place] [address] * CT ABDOMEN PELVIS W CONTRAST (09/30/2024 [...] findings as detailed above. Narrative Procedure Note More Walter MD - 09/30/2024 IMPRESSION: Please see [...] 3. Hepatic steatosis. 4. Otherwise as above. us Troy Jimenez MD CT ORDERABLES Final Resu lt * VANCOMYCIN LEVEL TROUGH (09/27/2024 10:55 AM CDT) Only the most recent of2 resultswithin the time period is included. [facility] VANCOMYCIN, TROUGH 15.8 10.0 - 17.0 ug/mL 09/27/2024 11:30 AM CDT [facility] Blood Venipuncture / Unknown 09/27/2024 10:55 AM CDT 09/27/2024 10:58 AM CDT us Troy Jimenez MD CHEMISTRY ORDERABLES Final Result [facility] CLIA # [id number] [facility] [phone] * EKG 12-LEAD (09/22/2024 11:24 AM CDT) Only the most recent of2 resultswithin the time period is included. 09/22/2024 11:2 4 AM CDT Narrative INTERFACE SYSTEM - 09/22/2024 1:12 PM CDT [address] [address] Test Date: 2024-09-22 Pat Name: PATRICAPAPO GREGORIOER Department: 12 Room: [address] [place] [address] Gender: Male Senior Oracle Pl Sql Developer: [email or web address] : 1980 Requested By: Order Number: [id number] Reading : Loraine Villanueva Measurements Intervals [place] Rate: 79 P: 79 NV: 148 QRS: 87 QRSD: 82 T: 80 QT: 358 QTc: 410 Interpretive Statements Normal sinus rhythm Normal ECG Electronically Signed On 09-22-2024 13:12:59 CDT by Loraine Villanueva Procedure Note Provider, Historical - 09/22/[address] [address] Test Date: 2024-09-22 Pat Name: PATRICA GARRETT Department: 12 Room: [facility] 01 Gender: Male Senior Oracle Pl Sql Developer: [email or web address] : 1980 Requested By: Order Number: [id number] Reading : Loraine Villanueva Measurements Intervals [place] Rate: 79 P: 79 NV: 148 QRS: 87 QRSD: 82 T: 80 QT: 358 QTc: 410 Interpretive Statements Normal sinus rhythm Normal ECG Electronically Signed On 09-22-2024 13:12:59 CDT by Loraine Villanueva Troy Jimenez MD ECG ORDERABLES Final Resu lt Performing Organization Address City/State/[facility] Co de Phone Number INTERFACE SYSTEM Refer to clinic/hospital department * BLOOD CULTURE (09/21/2024 11:28 AM CDT) Only the most recent of2 resultswithin the time period is included. BLOOD CULTURE No growth 09/26/2024 12:43 PM CDT [facility] Blood (Peripheral) Venipuncture / Unknown 09/21/2024 11:28 AM CDT 09/21/2024 11:57 AM CDT Troy Jimenez MD MICROBIOLOGY - GENERAL ORD ERABLES Final Result Performing Organization Address [facility] de Phone Number [facility] CLIA # [id number] [address] [address] * SODIUM, RANDOM URINE (09/20/2024 1:03 PM CDT) [facility] SODIUM, URINE 127 mmol/L 09/20/2024 1:32 PM CDT [facility] Comment:Reference range not established Urine URINE SPECIMEN OBTAINED BY CLEAN CATCH PROCEDURE / Unknown Collection / Unknown 09/20/2024 1:03 PM CDT 09/20/2024 1:06 PM CDT Troy Jimenez MD URINE ORDERABLES Final Res ult Performing Organization Address [facility] Co de Phone Number [facility] CLIA # [id number] [address] [address] * OSMOLALITY, URINE (09/20/2024 1:03 PM CDT) Pathologist [facility] OSMOLALITY, URINE 416 50 - 1,200 mOsm/kg 09/20/2024 1:45 PM CDT [facility] Urine URINE SPECIMEN OBTAINED BY CLEAN CATCH PROCEDURE / Unknown Collection / Unknown 09/20/2024 1:03 PM CDT 09/20/2024 1:06 PM CDT Narrative [facility] - 09/20/2024 1:45 PM CDT Reference range: 50-1200 mOsm/kg H2O, depending on fluid intake. Troy Jimenez MD URINE ORDERABLES Final Res ult Performing Organization Address [facility]/ZIP Co de Phone Number [facility] CLIA # [id number] [address] [id number] * (ABNORMAL) D-DIMER (09/20/2024 1:01 PM CDT) D-DIMER QUANT 10.17(H) 0.00 - 0.50 ug/mL FEU 09/20/2024 1:47 PM CDT [facility] Blood Venipuncture / Unknown 09/20/2024 1:01 PM CDT 09/20/2024 1:19 PM CDT Narrative [facility] - 09/20/2024 1:47 PM CDT D-Dimer assay cutoff value for exclusion of DVT and/or PE is <0.50 ug/mL FEU. Troy Jimenez MD HEMATOLOGY ORDERABLES Naina l Result Performing Organization Address [facility]/ZIP Co de Phone Number [facility] CLIA # [id number] [address] [address] * CTA CHEST W AND/OR WO CONTRAST [...] - 7.0 mg/dL 09/20/2024 12:44 PM CDT [facility] [employer] SERVICES [facility] Blood Venipuncture / Unknown 09/20/2024 3:48 AM CDT 09/20/2024 4:23 AM CDT Troy Jimenez MD CHEMISTRY ORDERABLES Final Result Performing Organization Address [facility] de Phone Number [facility] CLIA # [id number] [address] [address] * CORTISOL LEVEL (09/20/2024 3:48 AM CDT) CORTISOL LEVEL 9.5 ug/dL 09/20/2024 12:44 PM CDT [facility] Comment: Cortisol Reference Range Morning Hours 6-10 a.m. 6.0-18.4 ug/dL Afternoon Hours 4-8 p.m. 2.7-10.5 ug/dL Blood Venipuncture / Unknown 09/20/2024 3:48 AM CDT 09/20/2024 4:23 AM CDT Troy Jimenez MD CHEMISTRY ORDERABLES Final Result Performing Organization Address [facility] de Phone Number [facility] CLIA # [id number] [address] [place] [address] * (ABNORMAL) BASIC METABOLIC PANEL (09/20/2024 3:48 AM CDT) Only the most recent of4 resultswithin the time period is included. SODIUM 129(L) 136 - 145 mmol/L 09/20/2024 4:59 AM CDT [facility] POTASSIUM 3.7 3.5 - 5.1 mmol/L 09/20/2024 4:59 AM CDT [facility] CHLORIDE 97(L) 98 - 107 mmol/L 09/20/2024 4:59 AM CDT [facility] CO2 21(L) 22 - 29 mmol/L 09/20/2024 4:59 AM CDT [facility] CALCIUM 7.8(L) 8.6 - 10.0 mg/dL 09/20/2024 4:59 AM CDT [facility] BUN 6 6 - 20 mg/dL 09/20/2024 4:59 AM CDT [facility] CREATININE 1.12 0.67 - 1.17 mg/dL 09/20/2024 4:59 AM T [facility] GLUCOSE 118(H) 74 - 99 mg/dL 09/20/2024 4:59 AM CDT [facility] GFR >60 >=60 mL/min/1.7 3 sq meter 09/20/2024 4:59 AM T [facility] Comment:eGFR calculated with 2020 CKD-EPI equation. Vegetarian diet, extremely high or low muscle mass, and may affect results. Cystatin C with Glomerular Filtration Rate is a suitable alternative for these patients. ANION GAP 11 9 - 20 mmol/L 09/20/2024 4:59 AM CDT [facility] Blood Venipuncture / Unknown 09/20/2024 3:48 AM CDT 09/20/2024 4:23 AM CDT us Moy Lawton MD CHEMISTRY ORDERABLES Final Resu lt [facility] CLIA # [id number] [address] [facility] [place] [address] * US VENOUS DOPPLER LEG BILATERAL (09/19/2024 3:12 PM CDT) Anatomical Region Laterality Modality Lower Extremity Ultrasound 09/19/2024 2:43 PM CDT Narrative 09/24/2024 12:25 PM CDT [facility] Cardiovascular Services Noninvasive Vascular Laboratory [address] [place] [address] Noninvasive Vascular Lab Venous Exam Complete Lower Extremity Duplex Patient: Patrica Garrett Study ID: US VENOUS DOPPLE Gender: M : 1980 Age: 44 Room: Height: Weight: BSA: Pt status: Inpatient Study Date: 09/19/2024 Study Time: 02:43:56 PM BSA: Ordering: Moy Lawton Interpreting:Kandy Ramos Accounting Systems Analyst: Alla Laguna RVT Indications: R/O DVT. Summary [...] Patent; Normal phasicity; spontaneous; compressible; normal augmentation [facility] is accredited with the Intersocietal Commission for the Accreditation of Vascular Laboratories (ICAVL) Prepared and Electronically Authenticated Kandy Ramos Confirmed 09/24/2024 12:25 Procedure Note Kandy Ramos DO - 09/24/2024 [facility] Services Noninvasive Vascular Laboratory [address] [place] [address] Noninvasive Vascular Lab Venous Exam Complete Lower Extremity Duplex Patient: Patrica Garrett Study ID: US VENOUS DOPPLE Gender: M : 1980 Age: 44 Room: Height: Weight: BSA: Pt status: Inpatient Study Date: 09/19/2024 Study Time: 02:43:56 PM BSA: Ordering: Moy Lawton Interpreting:Kandy Ramos Accounting Systems Analyst: Alla Laguna RVT Indications: R/O DVT. Summary [...] saphenous Patent; Normal phasicity; spontaneous;compressible; normal augmentation [facility] is accredited with theIntersocietal Commission for the Accreditation of Vascular Laboratories (ICAVL) Prepared and Electronically Authenticated Kandy Ramos Confirmed 09/24/2024 12:25 Moy Lawton MD US ORDERABLES Final Result * (ABNORMAL) LACTIC ACID (09/17/2024 11:49 PM CDT) Only the most recent of2 resultswithin the time period is included. LACTIC ACID 2.8(H) <=2.0 mmol/L 09/18/2024 12:16 AM CDT [facility] [employer] [facility] Blood Venipuncture / Unknown 09/17/2024 11:49 PM CDT 09/17/2024 11:52 PM CDT Krzysztof Anaya DO CHEMISTRY ORDERABLES Fi nal Result [facility] CLIA # [id number] [facility] [address] [place] [address] * US RIGHT UPR QUADRANT (09/17/2024 10:30 [...] Krzysztof Anaya DO URINE ORDERABLES Final Result [facility] # [id number] [address] [place] [address] * (ABNORMAL) DRUG SCREEN, URINE (09/17/2024 9:30 PM CDT) AMPHETAMINE QUAL, URINE Negative Negative 09/17/2024 10:44 PM CDT [facility] BARBITURATE QUAL, URINE Negative Negative 09/17/2024 10:44 PM CDT [facility] BENZODIAZEPINE QUAL, URINE Presumptive Positive(A) Negative 09/17/2024 10:44 PM CDT [facility] COCAINE QUAL URINE Negative Negative 09/17/2024 10:44 PM CDT [facility] OPIATE QUAL, URINE Negative Negative 09/17/2024 10:44 PM CDT [facility] CANNABINOIDS QUAL, URINE Negative Negative 09/17/2024 10:44 PM CDT [facility] OXYCODONE QUAL, URINE Negative Negative 09/17/2024 10:44 PM CDT [facility] METHADONE QUAL, URINE Negative Negative 09/17/2024 10:44 PM CDT [facility] FENTANYL QUAL, URINE Negative Negative 09/17/2024 10:44 PM CDT [facility] CREATININE, URINE 401.2(H) 40.0 - 278.0 mg/dL 09/17/2024 10:44 PM T [facility] Comment:Reference Range vari es with fluid intake and diet. Urine URINE SPECIMEN OBTAINED BY CLEAN CATCH PROCEDURE / Unknown Collection / Unknown 09/17/2024 9:30 PM CDT 09/17/2024 9:37 PM CDT Narrative [facility] - 09/17/2024 10:44 PM CDT [...] Krzysztof Anaya DO URINE ORDERABLES Final Result [facility] CLIA # [id number] [facility] [address] [place] [address] * (ABNORMAL) URINALYSIS WITH REFLEX MICROSCOPIC (09/17/2024 9:30 PM CDT) COLOR UA Yellow Pale to Dark Yellow 09/17/2024 10:08 PM [facility] CLARITY UA Clear Clear 09/17/2024 10:08 PM [facility] SPECIFIC GRAVITY UA 1.030 1.003 - 1.035 09/17/2024 10:08 PM [facility] PH UA 6.5 5.0 - 8.0 09/17/2024 10:08 PM [facility] LEUKOCYTE ESTERASE UA Negative Negative 09/17/2024 10:08 PM [facility] NITRITE UA Negative Negative 09/17/2024 10:08 PM [facility] PROTEIN UA 1+(A) Negative 09/17/2024 10:08 PM [facility] GLUCOSE UA Negative Negative 09/17/2024 10:08 PM [facility] KETONES UA Trace(A) Negative 09/17/2024 10:08 PM [facility] UROBILINOGEN UA <2.0 <2.0 mg/dL 10:08 PM [facility] BILIRUBIN UA Negative Negative 09/17/2024 10:08 PM [facility] BLOOD UA Negative Negative 09/17/2024 10:08 PM [facility] WBC UA 0-2 0 - 2 /hpf 09/17/2024 10:08 PM [facility] RBC UA 0-2 0 - 2 /hpf 09/17/2024 10:08 PM [facility] BACTERIA UA Negative Negative /hpf 09/17/2024 10:08 PM [facility] EPITHELIAL CELLS, URINE 0-5 0 - 5 /hpf 09/17/2024 10:08 PM [facility] HYALINE CAST 11-25(A) None Seen, 0-2 /lpf 09/17/2024 10:08 PM CDT [facility] Urine URINE SPECIMEN OBTAINED BY CLEAN CATCH PROCEDURE / Unknown Collection / Unknown 09/17/2024 9:30 PM CDT 09/17/2024 9:35 PM CDT Krzysztof Anaya DO URINE ORDERABLES Final Result [facility] CLIA # [id number] [address] [address] [place] [address] * XR CHEST PA OR AP 1 [...] IMPRESSION: No evidence of acute cardiopulmonary disease. Krzysztof Anaya DO DIAGNOSTIC IMAGING ORDE RABLES Final Result * EXTRA TUBE (LAV) (09/17/2024 7:14 PM CDT) Blood Venipuncture / Unknown 09/17/2024 7:14 PM CDT 09/17/2024 7:23 PM CDT Radha Harrison DASHBOARD DEVELOPER HEMATOLOGY ORDERABLES Final Re sult Performing Organization Address [facility] Co de Phone Number [facility] CLIA # [id number] [address] [address] * TSH REFLEXIVE (09/17/2024 7:14 PM CDT) TSH 0.76 0.27 - 4.20 uIU/mL 09/17/2024 8:24 PM CDT [facility] Blood Venipuncture / Unknown 09/17/2024 7:14 PM CDT 09/17/2024 7:18 PM CDT Radha Harrison DASHBOARD DEVELOPER CHEMISTRY ORDERABLES Final Res ult Performing Organization Address [facility] de Phone Number [facility] CLIA # [id number] [address] [address] * KETONES/BETA HYDROXYBUTYRATE (09/17/2024 7:14 PM CDT) BETA HYDROXYBUTYRATE 0.2 0.0 - 0.3 mmol/L 09/17/2024 11:22 PM CDT [facility] Blood Venipuncture / Unknown 09/17/2024 7:14 PM CDT 09/17/2024 7:21 PM CDT Krzysztof Anaya DO CHEMISTRY ORDERABLES Fi nal Result Performing Organization Address [facility] Co de Phone Number [facility] CLIA # [id number] [address] [id number] * MAGNESIUM LEVEL (09/17/2024 7:14 PM CDT) Pathologist [facility] MAGNESIUM 1.7 1.6 - 2.6 mg/dL 09/17/2024 8:56 PM CDT [facility] Blood Venipuncture / Unknown 09/17/2024 7:14 PM CDT 09/17/2024 7:21 PM CDT Krzysztof Anaya DO CHEMISTRY ORDERABLES Fi nal Result Performing Organization Address [facility] Co de Phone Number [facility] CLIA # [id number] [facility] [address] * (ABNORMAL) LIPASE (09/17/2024 7:14 PM CDT) [facility] LIPASE 779(H) 13 - 60 U/L 09/17/2024 8:21 PM CDT [facility] Blood Venipuncture / Unknown 09/17/2024 7:14 PM CDT 09/17/2024 7:21 PM CDT Radha Harrison DASHBOARD DEVELOPER CHEMISTRY ORDERABLES Final Res ult Performing Organization Address City/[facility] Co de Phone Number [facility] CLIA # [id number] [address] [id number] * ETHANOL LEVEL (09/17/2024 7:14 PM CDT) Pathologist [facility] ETHANOL <10.10 <10.10 mg/dL 09/17/2024 8:45 PM CDT [facility] ETHANOL % <0.01 <=0.01 %w/v 09/17/2024 8:45 PM CDT [facility] Blood Venipuncture / Unknown 09/17/2024 7:14 PM CDT 09/17/2024 7:21 PM CDT Krzysztof Anaya DO CHEMISTRY ORDERABLES Fi nal Result [facility] CLIA # [id number] [address] [address] * Critical Care (09/17/2024 4:55 PM CDT) [...] Final Result from Last 3 Months Insurance [facility] MEDICA[employer] Advance Directives For more information, please contact: [phone] * Full Code (Latest Code Status on File) Date Activated Date Inactivated Comments 09/17/2024 11:46 PM 10/01/2024 8:18 PM
--- OUTSIDE RECORDS SUMMARY | 2024-12-06 14:49 | XMS_ITS | Encounter Summary ---
Author Organization [employer] Address [address] [place] [address] Care Team Providers Care Reimbursement Representative Name Role Phone Unavailable Primary Care Provider Unavailabl e Encounter Details Date Type Department Care Team (Late st Contact Info) Description 12/04/2024 External Device Data [facility] ABSTRACTION Provider, Abstract NO ADDRESS ON FILE Social History Tobacco Use Types Packs/Day Years Used Date Smoking Tobacco: Former Cigarettes Feeling Safe Answer Date Recorded Are you [...]
--- OUTSIDE RECORDS SUMMARY | 2024-12-06 14:49 | XMS_ITS | Patient Health Record ---
Author Organization [facility] [employer] Address [address] [place], [place] [address] Care Team Providers Care Wallcovering Hanger Name Role Phone Ronan Regan MD Unavailable [phone] Naman Silva MD Unavailable Unavailable Harmony Mascorro Unavailable [phone] Allergies Allergen (clinical drug ingredient) Drug/Non Drug [...] Pain Manag ement Referred Organization [facility] Referred Provider Ronan Regan Referred Address [address] [place], [id number], Referred Provider Specialty Pain Managem ent General [...] Status Risk Notes Problem Nondependent opioid abuse (914785660) Opioid use, unspecified, uncomplicated (F11.90) Active confirmed Problem Spinal stenosis, lumbar region with neurogenic claudication (M48.062) Active confirmed Plan Of Treatment No Information Insurance Providers Payer Name Payer Address Payer Phone Subscriber Number Group Number Insured Name Patient Relationship to Insured Coverage Start Date Coverage End Date [employer] [address] [address] [place] [id number] Andrade Garrett Self - patient is the [...]
[2024-12-06 14:53] VITALS: BP 131/84; PULSE 116; RESP 19; TEMP 36.6; O2SAT 96; BMI 39.3
--- NOTE | 2024-12-06 14:57 | ED_ITS ---
HPI - Back Pain/Injury General: Chief Complaint: Back Pain/Injury Stated Complaint: lower right side back pain Time Seen by Provider: 12/06/24 14:56 Source: patient Mode of arrival: ambulatory Limitations: no limitations History of Present Illness: Patient is a 44-year-old male presents to ED today with complaint of right sided sciatica back pain. Patient states he has a chronic history of back pain. He states he is following up with Dr. Jo for this. He states earlier today he was lifting a 6 x 6 post, and when he went to set it down he felt something pull in his back and states he flared up his sciatica. He is complaining of pain to the right side of his back radiating down into his buttock and down into his right lower extremity. He is not complaining of saddle anesthesia or bowel or bladder dysfunction. He states he drove himself to the emergency department and was ambulatory back to his room without assistance. MD elicited complaint: back pain and back injury Onset (ago): hour(s) Timing: constant Severity: severe Pain scale (0-10): 9 Similar Symptoms Previously: Yes Quality: burning and sharp Location: right lower back Radiation: buttocks and right leg below the knee Exacerbating factors: movement and walking Relieving factors: none Context: while lifting and bending Associated symptoms: Reports no associated symptoms; Deny abdominal pain, chills, difficulty walking, dysuria, fatigue, fever(s) or hematuria Work related injury: No Related Data Home Medications ?Medication ?Instructions ?Recorded ?Confirmed apixaban 5 mg tablet 5 mg PO BID 10/07/24 5 folic acid 1 mg tablet 1 mg PO DAILY 10/07/2411/18 hydroxyzine HCl 25 mg tablet 25 mg PO QID PRN Anxiety 10/07/24 11/18/24 [id number] 2 cap PO TID 10/07/24 36,000-114,000-180,000 unit capsule,delay rel (Creon) multivitamin-ferrous 1 tab PO DAILY 10/07/2411/08 fumarate-folic acid 18 mg-400 mcg tablet (Daily Multivitamin with Iron) Previous Rx's ?Medication ?Instructions ?Recorded baclofen 20 mg tablet 20 mg PO DAILY #30 tabs 03/11 06/03 tadalafil 20 mg tablet See Rx Instructions .Route 0 07/19/24 .COMPLEX #30 tabs gabapentin 300 mg capsule 300 mg PO 3XD #90 caps 10/08 (Neurontin) benztropine 0.5 mg tablet 0.5 mg PO BID PRN EPS #60 ta bs 10/28/24 clonazepam 1 mg tablet 1 mg PO .HS #30 tabs 5 azelastine 205.5 mcg (0.15 %) 205.5 mcg (0.137 mL) int ranasal 11/06/24 nasal spray (Astepro Allergy) BID #30 mL fluticasone propionate 50 2 spray intranasal Q12H #16 grams 11/06/24 mcg/actuation nasal spray,suspension (Flonase Allergy Relief) amoxicillin 875 mg-potassium 1 tab PO BID #14 tabs 10/02 clavulanate 125 mg tablet paliperidone 6 mg tablet,extended 6 mg PO DAILY #14 ta bs 11/13/24 release 24 hr paliperidone palmitate 156 mg/mL 156 mg IM Q30D #1 mL 11/18/24 intramuscular syringe ([facility] cyclobenzaprine 5 mg tablet See Rx Instructions .Route 11/21/24 .COMPLEX #135 tabs pantoprazole 40 mg tablet,delayed 40 mg PO DAILY #90 t abs 11/21/24 release thiamine mononitrate (vit B1) 100 100 mg PO DAILY #90 tabs 11/21/24 mg tablet hydrocodone 5 mg-acetaminophen 325 1 tab PO Q6H PRN pa in #12 tabs 12/06/24 mg tablet prednisone 10 mg tablet 10 mg PO DAILY 6 days #20 ta bs 12/06/24 Allergies Allergy/AdvReac Type Severity Reaction Status Date / Time ciprofloxacin (From Cipro) Allergy Severe ALGY-Swell Verified 11/18/24 14:08 Lip/Tongue/Throat Review of Systems Const: Denies: fever(s), chills, body aches, fatigue or malaise Card: Denies: chest pain Resp: Denies: dyspnea GI: Denies: abdominal pain : Denies: flank pain, dysuria or hematuria Musc: Reports: back pain; Denies: neck pain, extremity pain, extremity swelling, joint pain, joint swelling or joint redness Skin/Breast: Denies: rash Neuro: Denies: headache(s), numbness in extremities, weakness in extremities, sensory changes or difficulty walking [facility] ED PFS: Medical History Alcoholic pancreatitis hospitalized September 2024 at [facility] Deep vein thrombosis (DVT) of right lower extremity 11.5.24 provoked--after an injury; now on asa 4.29.25 Hypertension, essential atenolol, lisinopril, propranolol didn't work; tadalafil daily has really worked On combination antipsychotic drug therapy Cannabis abuse Nicotine dependence, chewing tobacco, uncomplicated Bipolar disorder with psychotic features BPH loc w urin obs/LUTS Psychiatric care Insomnia disorder 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 Smoker unmotivated to quit ADHD, adult residual type Diverticulosis CKD (chronic kidney disease) stage 2, GFR 60-89 ml/min History of spinal fracture L2 level in 2000 Peripheral neuropathic pain ADD (attention deficit disorder) Crohn disease says he was dxed in [place], colonoscopy 2017 Surgical History History of arthroscopic knee surgery right knee Family History Mother Bone disease Aplastic anemia Father Psychiatric illness Schizophrenia/ Bipolar Social History Smoking and tobacco/nicotine status: unknown if used tobacco/nicotine Quit status (tobacco/nicotine): has quit using Year quit tobacco: 2011 Alcohol intake: former Year of sobriety/quit date alcohol: 2024 Former alcohol use details: 1/2 pint daily until 09/2024--hospitalized for pancreatitis, now stopped Substance/Drug Use: never Caregiver/support person: No Lives independently: Yes Household members: spouse Marital status: Number of children: 4 Highest education level completed: Bachelor's Degree service: Yes Current occupational status: employed 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 Do you think of yourself as: Straight/Heterosexual Current gender identity: Male Physical Exam Const: COMMON NORMALS: average body habitus, no limitations, healthy appearing, alert and well nourished GENERAL APPEARANCE: cooperative and in distress (appears uncomfortable secondary to pain) ORIENTATION/CONSCIOUSNESS: Yes awake, Yes oriented to person, Yes oriented to place and Yes oriented to time Neck/C-Spine: COMMON NORMALS: full ROM CERVICAL SPINE: No pain with cervical ROM and No Cervical spine tenderness Resp: COMMON NORMALS: normal respiratory effort and clear to auscultation bilaterally AUSCULTATION: clear to auscultation bilaterally Cardio: COMMON NORMALS: regular rate and regular rhythm RATE: regular rate RHYTHM: regular rhythm GI: COMMON NORMALS: Normal to inspection, nondistended, normoactive bowel sounds present, Soft to palpation, non-tender and no masses PALPATION: Yes Soft to palpation : COMMON NORMALS: Yes no CVA tenderness BLADDER/KIDNEY EXAM: Yes no CVA tenderness Back/Pelvis: COMMON NORMALS: no CVA tenderness THORACIC SPINE/UPPER BACK: No thoracic spinal tenderness LUMBAR SPINE/LOWER BACK: Yes paraspinal muscle tenderness Lumbar paraspinal muscle tenderness: right and No mass present PELVIS: Yes sciatic notch tenderness on the right SACRUM: no tenderness COCCYX: no tenderness Extremity: COMMON NORMALS: capillary refill normal, no clubbing, cyanosis or edema, no calf tenderness and no pedal edema GENERAL: Yes normal exam except as noted Neuro: COMMON NORMALS: moves all extremities, no focal motor deficits, no sensory deficits noted and gait normal SENSORIUM/ORIENTATION: Yes alert, Yes oriented to person, Yes oriented to place and Yes oriented to time GAIT: Yes Normal gait present MOTOR EXAM: 5/5 motor strength present throughout Skin: COMMON NORMALS: no rashes or lesions noted GENERAL SKIN EXAM: no rashes or lesions noted Course Vital Signs: Vital signs: Vital Signs Temperature 97.9 F 12/06/24 14:53 Pulse Rate 116 H 12/06/24 14:53 Respiratory Rate 19 H 12/06/24 14:53 Blood Pressure 131/84 12/06/24 14:53 Pulse Oximetry 96 12/06/24 14:53 Oxygen Delivery Me thod Room Air 12/06/24 14:53 MDM - Back Pain/Injury Medical Decision Making Patient feeling better after IV medications given here. History and physical exam consistent with right-sided sciatica. Patient states he already has muscle relaxers of baclofen and cyclobenzaprine that he can take at home. States he does not take NSAIDs as it flares up his Crohn's. He is agreeable to steroids. Asking for pain medication. He reportedly used to see Dr. Silva and has an upcoming appointment with Dr. Clark but this is not until December. Will give small amount of these that he can use sparingly. Differential Diagnosis Likely lumbar radiculopathy, sciatica and strain of lumbar region Medical Records I reviewed the patient's medical records. No radiology studies performed this visit Discharge Plan Discharge Patient Disposition: Home Clinical Impression: Acute right-sided back pain with sciatica Condition: Stable Prescriptions: New prednisone 10 mg tablet 10 mg PO DAILY 6 Days Qty: 20 0RF Rx Instructions: Take 5 tabs on day 1-2, 4 tabs on day 3, 3 tabs on day 4, 2 tabs on day 5, and 1 tab on day 6 hydrocodone-acetaminophen 5-325 mg tablet 1 tab PO Q6H PRN (Reason: pain) Qty: 12 0RF No Action folic acid 1 mg tablet 1 mg PO DAILY hydroxyzine HCl 25 mg tablet 25 mg PO QID PRN (Reason: Anxiety) Daily Multivitamin with Iron 18-400 mg-mcg tablet 1 tab PO DAILY apixaban 5 mg tablet 5 mg PO BID Creon 36,000-114,000- 180,000 unit capsule,delayed release(DR/EC) 2 cap PO TID Rx Instructions: administer with meals and/or snacks Invega Sustenna 156 mg/mL syringe 156 mg IM Q30D Qty: 1 1RF Rx Instructions: Invega Sustenna due date 12/16/24. baclofen 20 mg tablet 20 mg PO DAILY Qty: 30 5RF tadalafil 20 mg tablet See Rx Instructions .ROUTE .COMPLEX Qty: 30 5RF Dose Instruction: TAKE 1 TABLET BY MOUTH EVERY DAY Rx Instructions: TAKE 1 TABLET BY MOUTH EVERY DAY lidocaine (PF) 20 mg/mL (2 %) solution 60 mg intra-articular ROUTINE Qty: 20 0RF Neurontin 300 mg capsule 300 mg PO 3XD Qty: 90 5RF benztropine 0.5 mg tablet 0.5 mg PO BID PRN (Reason: EPS) Qty: 60 1RF clonazepam 1 mg tablet 1 mg PO .HS Qty: 30 2RF pantoprazole 40 mg tablet,delayed release (DR/EC) 40 mg PO DAILY Qty: 90 1RF thiamine mononitrate (vit B1) 100 mg tablet 100 mg PO DAILY Qty: 90 0RF cyclobenzaprine 5 mg tablet See Rx Instructions .ROUTE .COMPLEX Qty: 135 0RF Dose Instruction: TAKE 1 & 1/2 TABLETS BY MOUTH THREE TIMES DAILY FOR 30 DAYS Rx Instructions: TAKE 1 & 1/2 TABLETS BY MOUTH THREE TIMES DAILY FOR 30 DAYS fluticasone propionate [Flonase Allergy Relief] 50 mcg/actuation spray,suspension 2 spray intranasal Q12H Qty: 16 0RF Rx Instructions: administer into each nostril azelastine [Astepro Allergy] 205.5 mcg (0.15 %) spray,non-aerosol 205.5 mcg intranasal BID Qty: 30 0RF Rx Instructions: administer into each nostril paliperidone 6 mg Tablet Extended Release 24hr 6 mg PO DAILY Qty: 14 0RF Rx Instructions: Take for 14 days then discontinue. amoxicillin-pot clavulanate 875-125 mg tablet 1 tab PO BID Qty: 14 0RF Discharge Orders: Discharge ED (Routine); Ordered 12/06/24 Ordered By: Macy Nesbitt Referrals: Aurora Hines MD [Primary Care Provider, Family Practice] Patient Instructions: Sciatica (ED), Opioid Safety, Pain Management, Patient Portal & [place] Instructions, Sciatica Print Language: Afghan Coding Level of Care Code ED Buttonhole Facer for Loretta Cody
[2024-12-06] MEDS: orphenadrine 30 mg/mL Inj 2 mL 60 MG IVP (15:51)
[2024-12-06 16:32] VITALS: BP 130/84; PULSE 98; O2SAT 98
== END 2024-12-06 16:33 | disposition home or self-care (01) ==
PROVIDERS: Emergency Provider Physician Assistant; PCP Family Medicine
DX: M54.31 Sciatica, right side (principal); M54.50 Low back pain, unspecified; Z87.891 Personal history of nicotine dependence; I12.9 Hypertensive chronic kidney disease with stage 1 through stage 4 chronic kidney disease, or unspecified chronic kidney disease; N18.2 Chronic kidney disease, stage 2 (mild)
CPT/HCPCS: 96374; 96375; 99284; J1100; J1885; J2360

== ENCOUNTER → 2025-03-11 09:54 | Outpatient (BNVA) | payer BC, SELFPAY | PROVIDERS: PCP Family Medicine; Visit Provider Nurse Practitioner | DX: Z79.899 Other long term (current) drug therapy (principal) | CPT/HCPCS: 80061; 83036 ==